=== PATIENT | female | born 1940 | race Caucasian/White ===

== ENCOUNTER → 2018-01-07 14:33 | Outpatient (CLI) | payer MEDICARE, BC, SELFPAY | PROVIDERS: PCP Physician Assistant; Visit Provider Physician Assistant | DX: N39.0 Urinary tract infection, site not specified (principal) | CPT/HCPCS: 87077; 87086; 87186 ==

== ENCOUNTER 2018-02-11 12:03 | Inpatient (IN) | payer MEDICARE, BC, SELFPAY ==
[2018-02-11] VITALS (14 sets, daily range): BP systolic 118–196; BP diastolic 46–99; PULSE 33–80; RESP 12–20; TEMP 36.3–37.2; O2SAT 92–96; BMI 26.2; BMI 24.5
--- NOTE | 2018-02-11 | DI.MRI.S_ITS ---
PROCEDURE: MR STROKE Pre- and post-contrast brain MRI, non-contrast brain MR angiogram, pre- and postcontrast neck MR angiogram INDICATIONS: cva TECHNIQUE: Brain: Noncontrast axial T1 spin echo, axial T2 fast spin echo, sagittal and axial FLAIR, coronal T2 fast spin echo, axial gradient echo, axial diffusion and ADC through the brain. After the administration of contrast, axial 3D VIBE of the cranial vasculature and brain. Brain MRA: Non-contrast 3-D time of flight MR angiogram, with multiple mvbemjf-zqidnbcms-oqhwpyryye (MIP) reformats performed. Neck MRA: Axial and sagittal TruFISP through the neck. Coronal dynamic MR angiogram during administration of contrast in the arterial and venous phases, with 3-dimenstional sqnsmbu-uqlglfqwq-kjshqeteuu (MIP) reformats constructed from subtraction images. COMPARISON: [facility], CT, CT HEAD/BRAIN WO CON, 02/11/2018, 12:03. [facility], CT, CT ANGIO HEAD AND NECK, 02/11/2018, 13:16. FINDINGS: Image quality: Excellent. BRAIN: CSF spaces: Ventricles are normal in size and shape. Basal cisterns are patent. No extra-axial fluid collections. Brain: There is moderate size area of restricted diffusion involving left parietal lobe deep periventricular white matter extending to involve left basal ganglia. This is consistent with an acute infarction in this region. No intracranial bleeds or mass effects. Waite-white matter interface is normal. Age-appropriate atrophy and moderate periventricular white matter chronic ischemic microangiopathic changes are seen. Normal intravascular flow voids are present. No abnormal intracranial enhancement. Skull and face: Calvarial marrow signal is normal. Orbits appear normal. Sinuses: Sinuses and mastoids are clear. BRAIN MR ANGIOGRAM: Anterior circulation: Intracranial internal carotid arteries are normal in size and enhancement. The flow within the paired anterior cerebral arteries is normal and symmetric. The flow within the middle cerebral arteries is normal and symmetric. The anterior communicating artery is seen. No stenoses, occlusions, or aneurysms. Posterior circulation: The visualized portions of the vertebral arteries demonstrate normal caliber, and join to form a normal appearing basilar artery. The flow within the posterior cerebral arteries is normal and symmetric. No stenoses, occlusions, or aneurysms. NECK MR ANGIOGRAM: Carotids: Great vessels demonstrate a conventional anatomy as they arise from the aortic arch. The origins of the common carotid arteries appear patent. The calibers and courses of both common carotid arteries are normal. The bifurcation regions appear normal bilaterally. The internal carotid arteries demonstrate normal course and caliber. Posterior circulation: The origins of the vertebral arteries appear patent. More superior portions of both vertebral arteries demonstrate normal course and caliber, and join to form a normal appearing basilar artery. Miscellaneous: Subclavian arteries appear patent. Pre-contrast images through the neck show no soft tissue abnormalities. IMPRESSION: BRAIN MRI: 1. 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 No acute intracranial bleed, midline shift or mass effect. 2. Diffuse atrophy and moderate periventricular white matter chronic ischemic microangiopathic changes. No area of abnormal contrast enhancement. BRAIN MR ANGIOGRAM: No hemodynamically significant stenosis or aneurysm is seen in the intracranial circulation. NECK MR ANGIOGRAM: No hemodynamically significant stenosis are noted in bilateral carotid arteries. Dictated by: Marc Guzman M.D. on 02/12/2018 at 11:40 Approved by: Marc Guzman M.D. on 02/12/2018 at 11:49
--- NOTE | 2018-02-11 12:09 | DI.CT.S_ITS ---
PROCEDURE: CT HEAD/BRAIN WO CON INDICATIONS: stroke symptoms TECHNIQUE: Noncontrast 4.5 mm thick angled axial sections acquired from the foramen magnum to the vertex, with coronal and sagittal reformats. For radiation dose reduction, the following was used: automated exposure control, adjustment of mA and/or kV according to patient size. COMPARISON: None. FINDINGS: Image quality: Excellent. CSF spaces: Basal cisterns are patent. No extra-axial fluid collections. The ventricles are symmetric in size and shape. Brain: No intracranial bleeds or masses. There is cerebral volume loss for age, with resultant ventricular and sulcal prominence. There are periventricular and deep white matter chronic small vessel ischemic changes. There is intracranial internal carotid artery atherosclerosis. Skull and face: Calvarium and visualized facial bones appear intact, without suspicious lesions. Sinuses: Visualized sinuses and mastoids are clear. IMPRESSION: No acute intracranial process. Findings personally telephoned to Dr. Ruiz in the emergency department 1226 hrs. 02/11/18 Dictated by: Samy Tavarez M.D. on 02/11/2018 at 12:24 Approved by: Samy Tavarez M.D. on 02/11/2018 at 12:27
--- NOTE | 2018-02-11 12:15 | DI.RAD.S_ITS ---
PROCEDURE: XR CHEST 1V INDICATIONS: cva symptoms TECHNIQUE: One view of the chest was acquired. COMPARISON: None. FINDINGS: Surgical changes and devices: None. Lungs and pleura: No pleural effusions or pneumothorax. Lungs are clear. Mediastinum: Mediastinal contours appear normal. Heart size is normal. Bones and chest wall: No suspicious bony lesions. Overlying soft tissues appear unremarkable. IMPRESSION: No acute disease. Dictated by: Samy Tavarez M.D. on 02/11/2018 at 12:49 Approved by: Samy Tavarez M.D. on 02/11/2018 at 12:50
--- NOTE | 2018-02-11 12:27 | DI.CT.S_ITS ---
PROCEDURE: CT ANGIO HEAD AND NECK INDICATIONS: cva, facial droop, slurred speech TECHNIQUE: Pre-contrast 4.5 mm thick sections acquired from the foramen magnum to the vertex. After the administration of intravenous contrast, 1 mm thick sections acquired from the aortic arch through the [place]. Post-contrast 4.5 mm thick sections then re-acquired from the foramen magnum to the vertex. 3-dimensional wxhflbo-akpbijufm-deoefkrsmf (MIP) and/or volume rendering reformats were acquired of the central intracranial vasculature and neck separately. COMPARISON: [facility], CT, CT HEAD/BRAIN WO CON, 02/11/2018, 12:03. FINDINGS: Image quality: Excellent. BRAIN: CSF spaces: Ventricles are normal in size and shape. Basal cisterns are patent. No extra-axial fluid collections. Brain: No midline shift. No intracranial bleeds or masses. Waite-white matter interface appears intact. Skull and face: Calvarium and facial bones appear intact, without suspicious lesions. Orbits appear normal. Sinuses: Sinuses and mastoids are clear. HEAD CT ANGIOGRAPHY: Anterior circulation: Intracranial internal carotid arteries are normal in size and flow. The flow within the paired anterior cerebral arteries is normal and symmetric. The flow within the middle cerebral arteries is normal and symmetric. The anterior communicating artery is seen. No aneurysms are seen. Posterior circulation: Dominant left vertebral artery. Normal appearing basilar artery. Incidental origin of the right [employer]. Flow within the posterior cerebral arteries is normal and symmetric. No aneurysms are seen. NECK CT ANGIOGRAPHY: Carotid system: The great vessels demonstrate a conventional anatomy as they arise from the aortic arch. The origins of the common carotid arteries appear patent. The common carotid arteries demonstrate normal caliber and courses. There are bilateral carotid bifurcation calcifications. No high-grade, greater than 50%, stenosis identified. The bifurcation regions are both widely patent. The internal carotid arteries demonstrate normal calibers and courses. Posterior circulation: The origins of the vertebral arteries both appear widely patent. Dominant left vertebral artery. Normal appearing basilar artery. Soft tissues: Visualized neck soft tissues demonstrate no suspicious abnormalities. Incidentally noted coronary artery concentrations also seen. Bones: No suspicious bony lesions. Visualized cervical spine appears normally aligned. IMPRESSION: Negative head CTA. 50% focal stenosis involving the origin of the left ICA. Further assessment with dedicated carotid ultrasound could be performed as clinically warranted. No hemodynamically significant right ICA stenosis. Dominant left vertebral artery. Any quantitative measurements of stenosis were performed using NASCET criteria. Dictated by: Samy Tavarez M.D. on 02/11/2018 at 14:03 Approved by: Samy Tavarez M.D. on 02/11/2018 at 14:10
--- NOTE | 2018-02-11 12:32 | PC.NURSE ---
pt cory, [facility], mad dr mccain at bs.
--- NOTE | 2018-02-11 12:32 | ED.NEUROSD ---
HPI - Neuro Symptoms/Deficit General Chief Complaint: Neuro Symptoms/Deficit Stated Complaint: possible stroke Time Seen by Provider: 02/11/18 12:14 Source: patient Mode of arrival: wheelchair Limitations: no limitations History of Present Illness HPI Narrative: This is a 77-year-old female comes to the emergency department with complaint of slurred speech, difficulty getting her words, facial droop as well as being off balance and having some numbness in her extremities. Patient states she woke up like this yesterday on the . Um she a [employer]. By today and they noticed her symptoms and insisted that she come to the ER. Patient states she has never had a prior stroke or TIA. She denies taking medications for blood pressure, she used to take medication for cholesterol but states she does not do well with the statins. No diabetes. Denies any thyroid, no chronic on any disease. She denies any cardiac history. She states she takes medication for her bladder oxybutynin, she takes a baby aspirin daily. She states she has had a hysterectomy. Vanna Ceballos is her PCP. On Anticoagulants: Yes (aspirin 81mg daily) Related Data Home Medications Medication Instructions Recorded Confirmed ASPIRIN (#ASPIRIN E.C.) 81 mg PO QDAY #0 08/06/11 02/11/18 sertraline 50 mg PO QDAY #0 08/06/11 02/11/18 zolpidem 5 mg PO HS #0 08/06/11 02/11/18 estradiol 0.5 mg PO 2XW #0 10/30/12 02/11/18 oxybutynin chloride 5 mg PO DAILY 02/11/18 02/11/18 Allergies Allergy/AdvReac Type Severity Reaction Status Date / Time No Known Drug Allergies Allergy Verified 02/11/18 14:57 Review of Systems Review of Systems All systems reviewed & are unremarkable except as noted in HPI and below Constitutional Denies frequent falls and Reports headache(s) ENT Ears, Nose, Mouth, and Throat: Reports headache(s), Reports disequilibrium and Reports other (facial droop, dysarthria) Cardiovascular Denies chest pain, Denies irregular heart rhythm, Denies lightheadedness, Denies palpitations, Denies dyspnea, Denies dyspnea on exertion and Denies orthopnea Respiratory Denies cough, Denies dyspnea, Denies dyspnea on exertion and Denies wheezing Gastrointestinal Gastrointestinal: Denies abdominal pain, Denies change in bowel habits, Denies diarrhea, Denies nausea and Denies vomiting Genitourinary Denies hematuria, Denies flank pain, Denies urinary incontinence and Denies urinary urgency Musculoskeletal Reports abnormal gait, Denies numbness and Reports tingling (both lower extremities.) Neurologic Reports as per HPI, Reports abnormal speech, Reports abnormal gait, Reports confusion, Denies frequent falls, Reports headache(s), Denies focal weakness, Denies numbness, Denies other visual disturbances, Reports tingling (both lower extremities.) and Reports disequilibrium Psychiatric Reports confusion Endocrine Denies palpitations Allergic/Immunologic Denies wheezing PFSH Medical History Depression (Acute) Peripheral arterial disease (Acute) COPD (chronic obstructive pulmonary disease) (Chronic) History of hypertension (Inactive) Dyslipidemia (Acute) H/O: hysterectomy (Acute) Social History household members: family and none lives independently: Yes Smoking Status: Former smoker alcohol intake: never Exam Narrative Exam Narrative: GEN: well nourished, well appearing female, alert and oriented x 3,, patient appears to be in mild distress. HEENT: Atraumatic, pupils are equal round reactive to light, extraocular movements are intact, nares are clear, Throat is clear without any exudates, erythema, tonsillar enlargement or uvular deviation, irght facial droop of mouth and nasolabial folds, mild dysarthria. HEART: Regular rate and rhythm without murmur, clicks, rubs. Pulses are equal in upper and lower extremities LUNGS:Lungs clear to auscultation, no wheezes, rales, crackles, chest moves symmetrically ABD:bowel sounds normal, soft, non-tender, no guarding, rebound, rigidity, no masses noted, no hepatosplenomegaly MSCL: Non-tender, no muscle atrophy, muscles strength 5/5 upper and lower extremities, full range of motion NEURO:CN 2-12 intact, sensation normal. finger nose finger test normal, heel mendoza test normal, mild aphasia Initial Vital Signs Initial Vital Signs: Vital Signs Pulse Rate 68 02/11/18 12:03 Respiratory Rate 19 02/11/18 12:03 Blood Pressure 177/86 H 02/11/18 12:03 Pulse Oximetry 94 02/11/18 12:03 Scores NIH Stroke Scale Level of Conciousness: Alert, keenly responsive Ask month/age: Answers both questions correctly. Best gaze horizontal: Normal Visual chambers: No visual loss Facial palsy: Minor paralysis, flattened nasolabial fold, asymmetry on smiling Left arm drift: No drift for full 10 sec Right arm drift: No drift for full 10 sec Left leg drift: No drift for full 10 sec Right leg drift: No drift for full 10 sec Limb ataxia: Absent Sensory on face/arms/legs: Normal, no sensory loss Best language: Mild to moderate, slurs some words Dysarthria: Mild to mod,some slurring Extinction or inattention: No abnormality Course Orders Ordered: ED Orders 02/11/18 12:03 Consult to Physical Therapy Evaluate & Treat 02/11/18 12:09 CT head/brain wo con Stat 02/11/18 12:14 EKG-12 Lead Stat 02/11/18 12:15 XR chest 1V Stat 02/11/18 12:27 CT angio head and neck Stat 02/11/18 12:44 Basic Metabolic Panel Stat Complete Blood Count AUTO DIFF Stat Partial Thromboplastin Time Stat Prothrombin Time INR Stat Troponin I Stat 02/11/18 17:09 Consult to Speech Therapy Evaluate & Treat 02/11/18 17:10 Education, smoking cessation ONGOING 02/11/18 17:25 Urinalysis and Microscopic Routine Urine Drug Screen, Rapid Stat Acetaminophen (Tylenol) 650 mg PO Q6HR PRN PRN Reason: As Needed for Fever/Mild Pain Al Hydrox/Mg Hydrox/Simethicone (Maalox Plus) 30 ml PO Q6HR PRN PRN Reason: Dyspepsia Clopidogrel Bisulfate (Plavix) 75 mg PO DAILY [facility] Labetalol HCl (Trandate) 10 mg IV Q4HR PRN PRN Reason: Hypertension Ondansetron HCl (Zofran) 4 mg IV Q8HR PRN PRN Reason: Nausea And Vomiting Oxybutynin Chloride (Ditropan Xl) 5 mg PO DAILY [facility] Sertraline HCl (Zoloft) 50 mg PO BEDTIME MICHAEL Zolpidem Tartrate (Ambien) 5 mg PO BEDTIME MICHAEL Discontinued Medications Aspirin (Aspirin Chew) 324 mg PO NOW ONE Stop: 02/11/18 12:26 Last Admin: 02/11/18 12:33 Dose: 324 mg Aspirin (Aspirin Ec) 81 mg PO DAILY [facility] Hydralazine HCl (Apresoline) 10 mg IV NOW ONE Stop: 02/11/18 13:10 Last Admin: 02/11/18 13:34 Dose: 10 mg Sodium Chloride (Normal Saline 0.9%) 1,000 mls @ 150 mls/hr IV CONT MICHAEL Last Infusion: 02/11/18 14:59 Dose: 150 mls/hr Admin: 02/11/18 12:35 Dose: 150 mls/hr Sertraline HCl (Zoloft) 50 mg PO DAILY [facility] Vital Signs - 8 hr 02/11/18 12:03 02/11/18 12:31 02/11/18 13:01 Temperature Pulse Rate 68 71 33 L Respiratory Rate 19 17 16 Blood Pressure 177/86 H Blood Pressure [Left Arm] 169/72 H 196/69 H Pulse Oximetry 94 92 94 02/11/18 13:35 02/11/18 13:50 02/11/18 14:00 Temperature Pulse Rate 75 80 76 Respiratory Rate 18 12 20 Blood Pressure Blood Pressure [Left Arm] 191/70 H 118/99 H 154/46 H Pulse Oximetry 94 96 96 02/11/18 14:09 02/11/18 14:15 02/11/18 14:30 Temperature Pulse Rate 75 74 75 Respiratory Rate 20 20 20 Blood Pressure Blood Pressure [Left Arm] 170/73 H 127/86 184/56 H Pulse Oximetry 95 96 95 02/11/18 15:00 02/11/18 15:02 02/11/18 17:16 Temperature 97.4 F L Pulse Rate 67 78 Respiratory Rate 16 Blood Pressure 184/56 H 156/77 H Blood Pressure [Left Arm] Pulse Oximetry 95 96 MDM - Neuro Symptoms/Deficit Lab Data Attestation: I reviewed the patient's lab results. Result diagrams: 02/11/18 12:44 02/11/18 12:44 Lab Results 02/11/18 02/11/18 02/11/18 Range/Units 12:44 12:44 12:44 WBC 8.1 (4.5-11.0) X10^3/uL RBC 4.68 (4.0-5.2) X10^6/uL Hgb 14.0 (12.0-16.0) g/dL Hct 42.3 (36-46) % MCV 90.5 (80-100) fL MCH 30.0 (26-34) PG MCHC 33.1 (30-36) % RDW 14.8 (11.6-14.8) % Plt Count 222 (150-400) X10^3/uL Neut % (Auto) 72.1 (50-75) % Lymph % (Auto) 18.5 L (25-40) % [place] % (Auto) 6.3 (3-14) % Eos % (Auto) 1.8 L (2-4) % Baso % (Auto) 1.3 (0-2) % Neut # (Auto) 5800 (2735-5502) /uL PT 11.3 (10.1-12.7) SECONDS INR 1.1 (0.9-1.3) APTT 31 (26.4-36.2) SECONDS Sodium 145 (137-145) mmol/L Potassium 4.0 (3.4-5.1) mmol/L Chloride 107 (98-107) mmol/L Carbon Dioxide 24 (22-32) mmol/L BUN 21 H (7-17) mg/dL Creatinine 0.60 (0.52-1.04) mg/dL Estimated GFR > 60.0 (>60) mL/min BUN/Creatinine Ratio 35.0 H (6-22) Glucose 123 H (80-110) mg/dL Calcium 9.1 (8.4-10.2) mg/dL Troponin I < 0.012 (0.01-0.034) ng/mL Urine Color Urine Appearance Urine pH (4.5-8.0) Ur Specific [place] (1.000-1.035) Urine Protein (Negative) Urine Glucose (UA) (Normal) g/dL Urine Ketones (NEGATIVE) Urine Occult Blood (Negative) Urine Nitrate (Negative) Urine Bilirubin (NEGATIVE) Urine Urobilinogen (0.2) E.U./dL Ur Leukocyte Esterase (NEGATIVE) Urine RBC (0-5/HPF) Urine WBC (0-5/HPF) Urine Bacteria (None) Ur Culture Indicated? Micro UA Comment Urine Opiates Screen (Negative) Ur Oxycodone Screen (Negative) Urine Methadone Screen (Negative) Ur Barbiturates Screen (Negative) U Tricyclic Antidepress (Negative) Ur Phencyclidine Scrn (Negative) Ur Amphetamines Screen (Negative) U Methamphetamines Scrn (Negative) Ur MDMA Scrn (Ecstasy) (Negative) U Benzodiazepines Scrn (Negative) Urine Cocaine Screen (Negative) U Marijuana (THC) Screen (Negative) 02/11/18 02/11/18 Range/Units 17:25 17:25 WBC (4.5-11.0) X10^3/uL RBC (4.0-5.2) X10^6/uL Hgb (12.0-16.0) g/dL Hct (36-46) % MCV (80-100) fL MCH (26-34) PG MCHC (30-36) % RDW (11.6-14.8) % Plt Count (150-400) X10^3/uL Neut % (Auto) (50-75) % Lymph % (Auto) (25-40) % [place] % (Auto) (3-14) % Eos % (Auto) (2-4) % Baso % (Auto) (0-2) % Neut # (Auto) (6160-3831) /uL PT (10.1-12.7) SECONDS INR (0.9-1.3) APTT (26.4-36.2) SECONDS Sodium (137-145) mmol/L Potassium (3.4-5.1) mmol/L Chloride (98-107) mmol/L Carbon Dioxide (22-32) mmol/L BUN (7-17) mg/dL Creatinine (0.52-1.04) mg/dL Estimated GFR (>60) mL/min BUN/Creatinine Ratio (6-22) Glucose (80-110) mg/dL Calcium (8.4-10.2) mg/dL Troponin I (0.01-0.034) ng/mL Urine Color Yellow Urine Appearance Clear Urine pH 7.0 (4.5-8.0) Ur Specific [place] <=1.005 (1.000-1.035) Urine Protein Negative (Negative) Urine Glucose (UA) Negative (Normal) g/dL Urine Ketones Negative (NEGATIVE) Urine Occult Blood Negative (Negative) Urine Nitrate Negative (Negative) Urine Bilirubin Negative (NEGATIVE) Urine Urobilinogen 0.2 (0.2) E.U./dL Ur Leukocyte Esterase Negative (NEGATIVE) Urine RBC None seen (0-5/HPF) Urine WBC None seen (0-5/HPF) Urine Bacteria None seen (None) Ur Culture Indicated? Not Reportable Micro UA Comment Not Reportable Urine Opiates Screen Negative (Negative) Ur Oxycodone Screen Negative (Negative) Urine Methadone Screen Negative (Negative) Ur Barbiturates Screen Negative (Negative) U Tricyclic Antidepress Negative (Negative) Ur Phencyclidine Scrn Negative (Negative) Ur Amphetamines Screen Negative (Negative) U Methamphetamines Scrn Negative (Negative) Ur MDMA Scrn (Ecstasy) Negative (Negative) U Benzodiazepines Scrn Negative (Negative) Urine Cocaine Screen Negative (Negative) U Marijuana (THC) Screen Negative (Negative) Point of Care Testing Glucose POC [address] scan - head: Radiologist's impression: [address] [address] [address] Scan Report Signed Patient: Susi Champion LMR#: [id number] : 9Acct:[id number] Age/Sex: 77 / FDate of Service: 02/11/18 Loc: ED Accession Number: [id number] Procedure: CT head/brain wo con Ordering Provider: Anna Ruiz D.O. PROCEDURE: CT HEAD/BRAIN WO CON INDICATIONS: stroke symptoms TECHNIQUE: Noncontrast 4.5 mm thick angled axial sections acquired from the foramen magnum to the vertex, with coronal and sagittal reformats. For radiation dose reduction, the following was used: automated exposure control, adjustment of mA and/or kV according to patient size. COMPARISON: None. FINDINGS: Image quality: Excellent. CSF spaces: Basal cisterns are patent. No extra-axial fluid collections. The ventricles are symmetric in size and shape. Brain: No intracranial bleeds or masses. There is cerebral volume loss for age, with resultant ventricular and sulcal prominence. There are periventricular and deep white matter chronic small vessel ischemic changes. There is intracranial internal carotid artery atherosclerosis. Skull and face: Calvarium and visualized facial bones appear intact, without suspicious lesions. Sinuses: Visualized sinuses and mastoids are clear. IMPRESSION: No acute intracranial process. Findings personally telephoned to Dr. Ruiz in the emergency department 1226 hrs. 02/11/18 Dictated by: Samy Tavarez M.D. on 02/11/2018 at 12:24 Approved by: Samy Tavarez M.D. on 02/11/2018 at 12:27 Chest x-ray: Radiologist's impression: [address] [address] XRay Report Signed Patient: Susi Champion LMR#: [id number] : 9At:[id number] Age/Sex: 77 / FDate of Service: 02/11/18 Loc: ED Accession Number: [id number] Procedure: XR chest 1V Ordering Provider: Anna Ruiz D.O. PROCEDURE: XR CHEST 1V INDICATIONS: cva symptoms TECHNIQUE: One view of the chest was acquired. COMPARISON: None. FINDINGS: Surgical changes and devices: None. Lungs and pleura: No pleural effusions or pneumothorax. Lungs are clear. Mediastinum: Mediastinal contours appear normal. Heart size is normal. Bones and chest wall: No suspicious bony lesions. Overlying soft tissues appear unremarkable. IMPRESSION: No acute disease. Dictated by: Samy Tavarez M.D. on 02/11/2018 at 12:49 Approved by: Samy Tavarez M.D. on 02/11/2018 at 12:[address] a: Radiologist's impression: [address] [address] [address] Scan Report Signed Patient: Susi Champion LMR#: [id number] : 9Acct:[id number] Age/Sex: 77 / FDate of Service: 02/11/18 Loc: ED Accession Number: [id number] Procedure: CT angio head and neck Ordering Provider: Anna Ruiz D.O. PROCEDURE: CT ANGIO HEAD AND NECK INDICATIONS: cva, facial droop, slurred speech TECHNIQUE: Pre-contrast 4.5 mm thick sections acquired from the foramen magnum to the vertex. After the administration of intravenous contrast, 1 mm thick sections acquired from the aortic arch through the [place]. Post-contrast 4.5 mm thick sections then re-acquired from the foramen magnum to the vertex. 3-dimensional [id number] (MIP) and/or volume rendering reformats were acquired of the central intracranial vasculature and neck separately. COMPARISON: [facility], CT, CT HEAD/BRAIN WO CON, 02/11/2018, 12:03. FINDINGS: Image quality: Excellent. BRAIN: CSF spaces: Ventricles are normal in size and shape. Basal cisterns are patent. No extra-axial fluid collections. Brain: No midline shift. No intracranial bleeds or masses. [place]-white matter interface appears intact. Skull and face: Calvarium and facial bones appear intact, without suspicious lesions. Orbits appear normal. Sinuses: Sinuses and mastoids are clear. HEAD CT ANGIOGRAPHY: Anterior circulation: Intracranial internal carotid arteries are normal in size and flow. The flow within the paired anterior cerebral arteries is normal and symmetric. The flow within the middle cerebral arteries is normal and symmetric. The anterior communicating artery is seen. No aneurysms are seen. Posterior circulation: Dominant left vertebral artery. Normal appearing basilar artery. Incidental origin of the right SP[employer]ERI[employer] TRIMMER. Flow within the posterior cerebral arteries is normal and symmetric. No aneurysms are seen. NECK CT ANGIOGRAPHY: Carotid system: The great vessels demonstrate a conventional anatomy as they arise from the aortic arch. The origins of the common carotid arteries appear patent. The common carotid arteries demonstrate normal caliber and courses. There are bilateral carotid bifurcation calcifications. No high-grade, greater than 50%, stenosis identified. The bifurcation regions are both widely patent. The internal carotid arteries demonstrate normal calibers and courses. Posterior circulation: The origins of the vertebral arteries both appear widely patent. Dominant left vertebral artery. Normal appearing basilar artery. Soft tissues: Visualized neck soft tissues demonstrate no suspicious abnormalities. Incidentally noted coronary artery concentrations also seen. Bones: No suspicious bony lesions. Visualized cervical spine appears normally aligned. IMPRESSION: Negative head CTA. 50% focal stenosis involving the origin of the left ICA. Further assessment with dedicated carotid ultrasound could be performed as clinically warranted. No hemodynamically significant right ICA stenosis. Dominant left vertebral artery. Any quantitative measurements of stenosis were performed using NASCET criteria. Dictated by: Samy Tavarez M.D. on 02/11/2018 at 14:03 Approved by: Samy Tavarez M.D. on 02/11/2018 at 14:10 ECG Data Attestation: I personally reviewed and interpreted this ECG as follows: Interpretation: Sinus rhythm rate of 73, P are of 204, QRS of 109 and QTC of 425. Sinus rhythm left axis deviation. Nonspecific ST changes particularly in aVL and lateral leads. MDM Narrative Medical decision making narrative: patient has had greater than 24 hr of symptoms is not a tPA candidate. Her NIH is 4. She did have elevating pressures in the department and was given hydralazine. She improvement in her facial droop during her stay on recheck but continues to have some dysarthria and aphasia. I spoke with Dr. Ramos who accepts for observation. Afterwards and further discussion with the patient she used to have hypertension her meds were stopped in conjunction with her physician as her pressures had dropped but she was told recently that she needs to restart medications but had issue lead told me she does not have any hypertension history. Discharge Plan Departure Patient Disposition: Admitted as Observation Clinical Impression: Acute CVA (cerebrovascular accident) Discharge Date/Time: 02/11/18 15:08 Interventions: ED Discharge Assessment Last Done: 02/11/18 14:44 Admit Date/Time: 02/11/18 14:34 Admit Provider: Brayden Ramos
[2018-02-11] MEDS: ASPIRIN 81 MG TAB 324 MG PO (12:33)
[2018-02-11] MEDS: SODIUM CHLORIDE 0.9% 1,000 ML 150 ML IV (12:35)
--- NOTE | 2018-02-11 12:35 | PC.NURSE ---
pt states, feeling fine tuesday, feeling slow, and clumsy, denies falling or injuries.
--- NOTE | 2018-02-11 12:39 | ED_ITS ---
HPI - Neuro Symptoms/Deficit General Chief Complaint: Neuro Symptoms/Deficit Stated Complaint: possible stroke Time Seen by Provider: 02/11/18 12:14 Source: patient Mode of arrival: wheelchair Limitations: no limitations History of Present Illness HPI Narrative: This is a 77-year-old female comes to the emergency department with complaint of slurred speech, difficulty getting her words, facial droop as well as being off balance and having some numbness in her extremities. Patient states she woke up like this yesterday on the . Um she a [employer]. By today and they noticed her symptoms and insisted that she come to the ER. Patient states she has never had a prior stroke or TIA. She denies taking medications for blood pressure, she used to take medication for cholesterol but states she does not do well with the statins. No diabetes. Denies any thyroid , no chronic on any disease. She denies any cardiac history. She states she takes medication for her bladder oxybutynin, she takes a baby aspirin daily. She states she has had a hysterectomy. Vanna Ceballos is her PCP. On Anticoagulants: Yes (aspirin 81mg daily) Related Data Home Medications Medication Instructions Recorded Confirmed ASPIRIN (#ASPIRIN E.C.) 81 mg PO QDAY #0 08/06/11 02/11/18 sertraline 50 mg PO QDAY #0 08/06/11 02/11/18 zolpidem 5 mg PO HS #0 08/06/11 02/11/18 estradiol 0.5 mg PO 2XW #0 10/30/12 02/11/18 oxybutynin chloride 5 mg PO DAILY 02/11/18 02/11/18 Allergies Allergy/AdvReac Type Severity Reaction Status Date / Time No Known Drug Allergies Allergy Verified 02/11/18 14:57 Review of Systems Review of Systems All systems reviewed & are unremarkable except as noted in HPI and below Constitutional Denies frequent falls and Reports headache(s) ENT Ears, Nose, Mouth, and Throat: Reports headache(s), Reports disequilibrium and Reports other (facial droop, dysarthria) Cardiovascular Denies chest pain, Denies irregular heart rhythm, Denies lightheadedness, Denies palpitations, Denies dyspnea, Denies dyspnea on exertion and Denies orthopnea Respiratory Denies cough, Denies dyspnea, Denies dyspnea on exertion and Denies wheezing Gastrointestinal Gastrointestinal: Denies abdominal pain, Denies change in bowel habits, Denies diarrhea, Denies nausea and Denies vomiting Genitourinary Denies hematuria, Denies flank pain, Denies urinary incontinence and Denies urinary urgency Musculoskeletal Reports abnormal gait, Denies numbness and Reports tingling (both lower extremities.) Neurologic Reports as per HPI, Reports abnormal speech, Reports abnormal gait, Reports confusion, Denies frequent falls, Reports headache(s), Denies focal weakness, Denies numbness, Denies other visual disturbances, Reports tingling (both lower extremities.) and Reports disequilibrium Psychiatric Reports confusion Endocrine Denies palpitations Allergic/Immunologic Denies wheezing PFSH Medical History Depression (Acute) Peripheral arterial disease (Acute) COPD (chronic obstructive pulmonary disease) (Chronic) History of hypertension (Inactive) Dyslipidemia (Acute) H/O: hysterectomy (Acute) Social History household members: family and none lives independently: Yes Smoking Status: Former smoker alcohol intake: never Exam Narrative Exam Narrative: GEN: well nourished, well appearing female, alert and oriented x 3,, patient appears to be in mild distress. HEENT: Atraumatic, pupils are equal round reactive to light, extraocular movements are intact, nares are clear, Throat is clear without any exudates, erythema, tonsillar enlargement or uvular deviation, irght facial droop of mouth and nasolabial folds, mild dysarthria. HEART: Regular rate and rhythm without murmur, clicks, rubs. Pulses are equal in upper and lower extremities LUNGS:Lungs clear to auscultation, no wheezes, rales, crackles, chest moves symmetrically ABD:bowel sounds normal, soft, non-tender, no guarding, rebound, rigidity, no masses noted, no hepatosplenomegaly MSCL: Non-tender, no muscle atrophy, muscles strength 5/5 upper and lower extremities, full range of motion NEURO:CN 2-12 intact, sensation normal. finger nose finger test normal, heel mendoza test normal, mild aphasia Initial Vital Signs Initial Vital Signs: Vital Signs Pulse Rate 68 02/11/18 12:03 Respiratory Rate 19 02/11/18 12:03 Blood Pressure 177/86 H 02/11/18 12:03 Pulse Oximetry 94 02/11/18 12:03 Scores NIH Stroke Scale Level of Conciousness: Alert, keenly responsive Ask month/age: Answers both questions correctly. Best gaze horizontal: Normal Visual chambers: No visual loss Facial palsy: Minor paralysis, flattened nasolabial fold, asymmetry on smiling Left arm drift: No drift for full 10 sec Right arm drift: No drift for full 10 sec Left leg drift: No drift for full 10 sec Right leg drift: No drift for full 10 sec Limb ataxia: Absent Sensory on face/arms/legs: Normal, no sensory loss Best language: Mild to moderate, slurs some words Dysarthria: Mild to mod,some slurring Extinction or inattention: No abnormality Course Orders Ordered: ED Orders 02/11/18 12:03 Consult to Physical Therapy Evaluate & Treat 02/11/18 12:09 CT head/brain wo con Stat 02/11/18 12:14 EKG-12 Lead Stat 02/11/18 12:15 XR chest 1V Stat 02/11/18 12:27 CT angio head and neck Stat 02/11/18 12:44 Basic Metabolic Panel Stat Complete Blood Count AUTO DIFF Stat Partial Thromboplastin Time Stat Prothrombin Time INR Stat Troponin I Stat 02/11/18 17:09 Consult to Speech Therapy Evaluate & Treat 02/11/18 17:10 Education, smoking cessation ONGOING 02/11/18 17:25 Urinalysis and Microscopic Routine Urine Drug Screen, Rapid Stat Acetaminophen (Tylenol) 650 mg PO Q6HR PRN PRN Reason: As Needed for Fever/Mild Pain Al Hydrox/Mg Hydrox/Simethicone (Maalox Plus) 30 ml PO Q6HR PRN PRN Reason: Dyspepsia Clopidogrel Bisulfate (Plavix) 75 mg PO DAILY [facility] Labetalol HCl (Trandate) 10 mg IV Q4HR PRN PRN Reason: Hypertension Ondansetron HCl (Zofran) 4 mg IV Q8HR PRN PRN Reason: Nausea And Vomiting Oxybutynin Chloride (Ditropan Xl) 5 mg PO DAILY [facility] Sertraline HCl (Zoloft) 50 mg PO BEDTIME MICHAEL Zolpidem Tartrate (Ambien) 5 mg PO BEDTIME MICHAEL Discontinued Medications Aspirin (Aspirin Chew) 324 mg PO NOW ONE Stop: 02/11/18 12:26 Last Admin: 02/11/18 12:33 Dose: 324 mg Aspirin (Aspirin Ec) 81 mg PO DAILY [facility] Hydralazine HCl (Apresoline) 10 mg IV NOW ONE Stop: 02/11/18 13:10 Last Admin: 02/11/18 13:34 Dose: 10 mg Sodium Chloride (Normal Saline 0.9%) 1,000 mls @ 150 mls/hr IV CONT MICHAEL Last Infusion: 02/11/18 14:59 Dose: 150 mls/hr Admin: 02/11/18 12:35 Dose: 150 mls/hr Sertraline HCl (Zoloft) 50 mg PO DAILY [facility] Vital Signs - 8 hr 02/11/18 12:03 02/11/18 12:31 02/11/18 13:01 Temperature Pulse Rate 68 71 33 L Respiratory Rate 19 17 16 Blood Pressure 177/86 H Blood Pressure [Left Arm] 169/72 H 196/69 H Pulse Oximetry 94 92 94 02/11/18 13:35 02/11/18 13:50 02/11/18 14:00 Temperature Pulse Rate 75 80 76 Respiratory Rate 18 12 20 Blood Pressure Blood Pressure [Left Arm] 191/70 H 118/99 H 154/46 H Pulse Oximetry 94 96 96 02/11/18 14:09 02/11/18 14:15 02/11/18 14:30 Temperature Pulse Rate 75 74 75 Respiratory Rate 20 20 20 Blood Pressure Blood Pressure [Left Arm] 170/73 H 127/86 184/56 H Pulse Oximetry 95 96 95 02/11/18 15:00 02/11/18 15:02 02/11/18 17:16 Temperature 97.4 F L Pulse Rate 67 78 Respiratory Rate 16 Blood Pressure 184/56 H 156/77 H Blood Pressure [Left Arm] Pulse Oximetry 95 96 MDM - Neuro Symptoms/Deficit Lab Data Attestation: I reviewed the patient's lab results. Result diagrams: 02/11/18 12:44 02/11/18 12:44 Lab Results 02/11/18 02/11/18 02/11/18 Range/Units 12:44 12:44 12:44 WBC 8.1 (4.5-11.0) X10^3/uL RBC 4.68 (4.0-5.2) X10^6/uL Hgb 14.0 (12.0-16.0) g/dL Hct 42.3 (36-46) % MCV 90.5 (80-100) fL MCH 30.0 (26-34) PG MCHC 33.1 (30-36) % RDW 14.8 (11.6-14.8) % Plt Count 222 (150-400) X10^3/uL Neut % (Auto) 72.1 (50-75) % Lymph % (Auto) 18.5 L (25-40) % [place] % (Auto) 6.3 (3-14) % Eos % (Auto) 1.8 L (2-4) % Baso % (Auto) 1.3 (0-2) % Neut # (Auto) 5800 (5008-5155) /uL PT 11.3 (10.1-12.7) SECONDS INR 1.1 (0.9-1.3) APTT 31 (26.4-36.2) SECONDS Sodium 145 (137-145) mmol/L Potassium 4.0 (3.4-5.1) mmol/L Chloride 107 (98-107) mmol/L Carbon Dioxide 24 (22-32) mmol/L BUN 21 H (7-17) mg/dL Creatinine 0.60 (0.52-1.04) mg/dL Estimated GFR > 60.0 (>60) mL/min BUN/Creatinine Ratio 35.0 H (6-22) Glucose 123 H (80-110) mg/dL Calcium 9.1 (8.4-10.2) mg/dL Troponin I < 0.012 (0.01-0.034) ng/mL Urine Color Urine Appearance Urine pH (4.5-8.0) Ur Specific [place] (1.000-1.035) Urine Protein (Negative) Urine Glucose (UA) (Normal) g/dL Urine Ketones (NEGATIVE) Urine Occult Blood (Negative) Urine Nitrate (Negative) Urine Bilirubin (NEGATIVE) Urine Urobilinogen (0.2) E.U./dL Ur Leukocyte Esterase (NEGATIVE) Urine RBC (0-5/HPF) Urine WBC (0-5/HPF) Urine Bacteria (None) Ur Culture Indicated? Micro UA Comment Urine Opiates Screen (Negative) Ur Oxycodone Screen (Negative) Urine Methadone Screen (Negative) Ur Barbiturates Screen (Negative) U Tricyclic Antidepress (Negative) Ur Phencyclidine Scrn (Negative) Ur Amphetamines Screen (Negative) U Methamphetamines Scrn (Negative) Ur MDMA Scrn (Ecstasy) (Negative) U Benzodiazepines Scrn (Negative) Urine Cocaine Screen (Negative) U Marijuana (THC) Screen (Negative) 02/11/18 02/11/18 Range/Units 17:25 17:25 WBC (4.5-11.0) X10^3/uL RBC (4.0-5.2) X10^6/uL Hgb (12.0-16.0) g/dL Hct (36-46) % MCV (80-100) fL MCH (26-34) PG MCHC (30-36) % RDW (11.6-14.8) % Plt Count (150-400) X10^3/uL Neut % (Auto) (50-75) % Lymph % (Auto) (25-40) % [place] % (Auto) (3-14) % Eos % (Auto) (2-4) % Baso % (Auto) (0-2) % Neut # (Auto) (4654-0039) /uL PT (10.1-12.7) SECONDS INR (0.9-1.3) APTT (26.4-36.2) SECONDS Sodium (137-145) mmol/L Potassium (3.4-5.1) mmol/L Chloride (98-107) mmol/L Carbon Dioxide (22-32) mmol/L BUN (7-17) mg/dL Creatinine (0.52-1.04) mg/dL Estimated GFR (>60) mL/min BUN/Creatinine Ratio (6-22) Glucose (80-110) mg/dL Calcium (8.4-10.2) mg/dL Troponin I (0.01-0.034) ng/mL Urine Color Yellow Urine Appearance Clear Urine pH 7.0 (4.5-8.0) Ur Specific [place] <=1.005 (1.000-1.035) Urine Protein Negative (Negative) Urine Glucose (UA) Negative (Normal) g/dL Urine Ketones Negative (NEGATIVE) Urine Occult Blood Negative (Negative) Urine Nitrate Negative (Negative) Urine Bilirubin Negative (NEGATIVE) Urine Urobilinogen 0.2 (0.2) E.U./dL Ur Leukocyte Esterase Negative (NEGATIVE) Urine RBC None seen (0-5/HPF) Urine WBC None seen (0-5/HPF) Urine Bacteria None seen (None) Ur Culture Indicated? Not Reportable Micro UA Comment Not Reportable Urine Opiates Screen Negative (Negative) Ur Oxycodone Screen Negative (Negative) Urine Methadone Screen Negative (Negative) Ur Barbiturates Screen Negative (Negative) U Tricyclic Antidepress Negative (Negative) Ur Phencyclidine Scrn Negative (Negative) Ur Amphetamines Screen Negative (Negative) U Methamphetamines Scrn Negative (Negative) Ur MDMA Scrn (Ecstasy) Negative (Negative) U Benzodiazepines Scrn Negative (Negative) Urine Cocaine Screen Negative (Negative) U Marijuana (THC) Screen Negative (Negative) Point of Care Testing Glucose POC [address] scan - head: Radiologist's impression: [address] [address] [address] Scan Report Signed Patient: Susi Champion LMR#: [id number] : 9Acct:[id number] Age/Sex: 77 / FDate of Service: 02/11/18 Loc: ED Accession Number: [id number] Procedure: CT head/brain wo con Ordering Provider: Anna Ruiz D.O. PROCEDURE: CT HEAD/BRAIN WO CON INDICATIONS: stroke symptoms TECHNIQUE: Noncontrast 4.5 mm thick angled axial sections acquired from the foramen magnum to the vertex, with coronal and sagittal reformats. For radiation dose reduction, the following was used: automated exposure control, adjustment of mA and/or kV according to patient size. COMPARISON: None. FINDINGS: Image quality: Excellent. CSF spaces: Basal cisterns are patent. No extra-axial fluid collections. The ventricles are symmetric in size and shape. Brain: No intracranial bleeds or masses. There is cerebral volume loss for age , with resultant ventricular and sulcal prominence. There are periventricular and deep white matter chronic small vessel ischemic changes. There is intracranial internal carotid artery atherosclerosis. Skull and face: Calvarium and visualized facial bones appear intact, without suspicious lesions. Sinuses: Visualized sinuses and mastoids are clear. IMPRESSION: No acute intracranial process. Findings personally telephoned to Dr. Ruiz in the emergency department 1226 hrs. 02/11/18 Dictated by: Samy Tavarez M.D. on 02/11/2018 at 12:24 Approved by: Samy Tavarez M.D. on 02/11/2018 at 12:27 Chest x-ray: Radiologist's impression: [address] [address] XRay Report Signed Patient: Ssui Champion LMR#: [id number] : 9At:[id number] Age/Sex: 77 / FDate of Service: 02/11/18 Loc: ED Accession Number: [id number] Procedure: XR chest 1V Ordering Provider: Anna Ruiz D.O. PROCEDURE: XR CHEST 1V INDICATIONS: cva symptoms TECHNIQUE: One view of the chest was acquired. COMPARISON: None. FINDINGS: Surgical changes and devices: None. Lungs and pleura: No pleural effusions or pneumothorax. Lungs are clear. Mediastinum: Mediastinal contours appear normal. Heart size is normal. Bones and chest wall: No suspicious bony lesions. Overlying soft tissues appear unremarkable. IMPRESSION: No acute disease. Dictated by: Samy Tavarez M.D. on 02/11/2018 at 12:49 Approved by: Samy Tavarez M.D. on 02/11/2018 at 12:[address] a: Radiologist's impression: [address] [address] [address] Scan Report Signed Patient: Susi Champion LMR#: [id number] : 9Acct:[id number] Age/Sex: 77 / FDate of Service: 02/11/18 Loc: ED Accession Number: [id number] Procedure: CT angio head and neck Ordering Provider: Anna Ruiz D.O. PROCEDURE: CT ANGIO HEAD AND NECK INDICATIONS: cva, facial droop, slurred speech TECHNIQUE: Pre-contrast 4.5 mm thick sections acquired from the foramen magnum to the vertex. After the administration of intravenous contrast, 1 mm thick sections acquired from the aortic arch through the [place] of [place]. Post-contrast 4.5 mm thick sections then re- acquired from the foramen magnum to the vertex. 3-dimensional maximum-intensity- projection (MIP) and/or volume rendering reformats were acquired of the central intracranial vasculature and neck separately. COMPARISON: [facility], CT, CT HEAD/BRAIN WO CON, 02/11/2018, 12:03. FINDINGS: Image quality: Excellent. BRAIN: CSF spaces: Ventricles are normal in size and shape. Basal cisterns are patent. No extra-axial fluid collections. Brain: No midline shift. No intracranial bleeds or masses. Waite-white matter interface appears intact. Skull and face: Calvarium and facial bones appear intact, without suspicious lesions. Orbits appear normal. Sinuses: Sinuses and mastoids are clear. HEAD CT ANGIOGRAPHY: Anterior circulation: Intracranial internal carotid arteries are normal in size and flow. The flow within the paired anterior cerebral arteries is normal and symmetric. The flow within the middle cerebral arteries is normal and symmetric. The anterior communicating artery is seen. No aneurysms are seen. Posterior circulation: Dominant left vertebral artery. Normal appearing basilar artery. Incidental origin of the right [employer]. Flow within the posterior cerebral arteries is normal and symmetric. No aneurysms are seen. NECK CT ANGIOGRAPHY: Carotid system: The great vessels demonstrate a conventional anatomy as they arise from the aortic arch. The origins of the common carotid arteries appear patent. The common carotid arteries demonstrate normal caliber and courses. There are bilateral carotid bifurcation calcifications. No high-grade, greater than 50%, stenosis identified. The bifurcation regions are both widely patent. The internal carotid arteries demonstrate normal calibers and courses. Posterior circulation: The origins of the vertebral arteries both appear widely patent. Dominant left vertebral artery. Normal appearing basilar artery. Soft tissues: Visualized neck soft tissues demonstrate no suspicious abnormalities. Incidentally noted coronary artery concentrations also seen. Bones: No suspicious bony lesions. Visualized cervical spine appears normally aligned. IMPRESSION: Negative head CTA. 50% focal stenosis involving the origin of the left ICA. Further assessment with dedicated carotid ultrasound could be performed as clinically warranted. No hemodynamically significant right ICA stenosis. Dominant left vertebral artery. Any quantitative measurements of stenosis were performed using NASCET criteria. Dictated by: Samy Tavarez M.D. on 02/11/2018 at 14:03 Approved by: Samy Tavarez M.D. on 02/11/2018 at 14:10 ECG Data Attestation: I personally reviewed and interpreted this ECG as follows: Interpretation: Sinus rhythm rate of 73, P are of 204, QRS of 109 and QTC of 425. Sinus rhythm left axis deviation. Nonspecific ST changes particularly in aVL and lateral leads. MDM Narrative Medical decision making narrative: patient has had greater than 24 hr of symptoms is not a tPA candidate. Her NIH is 4. She did have elevating pressures in the department and was given hydralazine. She improvement in her facial droop during her stay on recheck but continues to have some dysarthria and aphasia. I spoke with Dr. Ramos who accepts for observation. Afterwards and further discussion with the patient she used to have hypertension her meds were stopped in conjunction with her physician as her pressures had dropped but she was told recently that she needs to restart medications but had issue lead told me she does not have any hypertension history. Discharge Plan Departure Patient Disposition: Admitted as Observation Clinical Impression: Acute CVA (cerebrovascular accident) Discharge Date/Time: 02/11/18 15:08 Interventions: ED Discharge Assessment Last Done: 02/11/18 14:44 Admit Date/Time: 02/11/18 14:34 Admit Provider: Brayden Ramos
[2018-02-11 12:53] LABS: Add Manual Diff / Slide Review NO; Basophils Percent Auto 1.3 % (0-2); Eosinophils Percent Auto 1.8 % (2-4); Hematocrit 42.3 % (36-46); Lymphocytes Percent Auto 18.5 % (25-40); Mean Corpuscular HGB Conc 33.1 % (30-36); Mean Corpuscular Volume 90.5 fL (80-100); Monocytes Percent Auto 6.3 % (3-14); Neutrophils Absolute Auto 5800 /uL (3000-5900); Neutrophils Percent Auto 72.1 % (50-75); Platelet Count 222 X10^3/uL (150-400); Red Blood Cell Count 4.68 X10^6/uL (4.0-5.2); Red Cell Distribution Width 14.8 % (11.6-14.8); White Blood Cell Count 8.1 X10^3/uL (4.5-11.0)
--- NOTE | 2018-02-11 13:04 | PC.NURSE ---
pt states, stopped taking bp medications 5 years ago.
[2018-02-11 13:05] LABS: Blood Urea Nitrogen 21 mg/dL (7-17); Calcium 9.1 mg/dL (8.4-10.2); Carbon Dioxide 24 mmol/L (22-32); Chloride 107 mmol/L (98-107); Estimated Glomerular Filt Rate > 60.0 mL/min (>60); Glucose 123 mg/dL (80-110); HEMOLYSIS 26 (0-50); Sodium 145 mmol/L (137-145)
[2018-02-11 13:10] LABS: INR 1.1 (0.9-1.3); PTT Partial Thromboplastin Tim 31 SECONDS (26.4-36.2); Prothrombin Time 11.3 SECONDS (10.1-12.7)
[2018-02-11 13:17] LABS: Troponin I < 0.012 ng/mL (0.01-0.034)
[2018-02-11] MEDS: HYDRALAZINE 20 MG/ML VIAL 10 MG IV (13:34)
--- NOTE | 2018-02-11 14:48 | PC.NURSE ---
pt condition improved, speech is improved, pt requesting to have coffee, approved by dr mccain, also made aware of pts elevating bp. no new order at this time
--- NOTE | 2018-02-11 16:02 | PC.NURSE ---
Pt arrived to [facility] 214 from ER at 1500. Alert, oriented. States that over the past couple days she has become more slow. NIH = 2 IV NS @ 150cc/hr infusing into the LFA, HL in the RAC both intact/patent. Pt and family oroineted to room and call system. Assisted pt to BR w/ 1PA & FWW w/o incidence. Call light w/in reach.
[2018-02-11 17:31] LABS: Bacteria Urine None Seen; RBC Urine None Seen (0-5/HPF); WBC Urine None Seen (0-5/HPF)
--- NOTE | 2018-02-11 17:31 | P.HP_ITS ---
History of Present Illness Date Patient Seen: 02/11/18 Time Patient Seen: 17:24 Chief complaint: possible stroke Narrative: 77-year-old female presents with onset of left facial droop and dysarthria. She has been feeling for most of the day kind of funny like she is in a fog and then she had the symptoms. Came into the ER to be evaluated. No prior history of stroke or heart disease she has had a history of hypertension but has been off medications for 5 years she says. She does have hyperlipidemia but has not been able to take a statin Patient History Medical History Depression (Acute) Peripheral arterial disease (Acute) COPD (chronic obstructive pulmonary disease) (Chronic) History of hypertension (Inactive) Dyslipidemia (Acute) H/O: hysterectomy (Acute) Family & Social History Social History: household members family,none Prior Living Arrangements House lives independently Yes Safety & Behavioral: Feels Safe in Current Yes Environment Been Physically Hurt or No Threatened By a Person Suicidal Ideation Description None Suicide Plan Description No Plan Tobacco & Substance use: Smoking Status Former smoker alcohol intake never Substance Use Type does not use Meds Home Medications Medication Instructions Recorded Confirmed Type ASPIRIN (#ASPIRIN E.C.) 81 mg PO QDAY #0 08/06/11 02/11/18 History sertraline 50 mg PO QDAY #0 08/06/11 02/11/18 History zolpidem 5 mg PO HS #0 08/06/11 02/11/18 History estradiol 0.5 mg PO 2XW #0 10/30/12 02/11/18 History oxybutynin chloride 5 mg PO DAILY 02/11/18 02/11/18 History Allergies Allergy/AdvReac Type Severity Reaction Status Date / Time No Known Drug Allergies Allergy Verified 02/11/18 14:57 Review of Systems Constitutional Constitutional: Reports system reviewed and no additional complaints, except as documented Eyes Eyes: Reports system reviewed; no additional complaints, except as documented ENT Ears, Nose, Mouth, and Throat: Yes system reviewed; no additional complaints, except as documented Cardiovascular Cardiovascular: Reports system reviewed; no additional complaints, except as documented Respiratory Respiratory: Reports system reviewed and no additional complaints, except as documented Gastrointestinal Gastrointestinal: Reports system reviewed and no additional complaints, except as documented Genitourinary Genitourinary: Reports system reviewed and no additional complaints, except as documented Musculoskeletal Musculoskeletal: Reports system reviewed; no additional complaints, except as documented Integumentary/Breasts Skin/Breast: Reports system reviewed and no additional complaints, except as documented Neurologic Neurologic: Reports abnormal speech, Reports burning sensations and Reports focal weakness Psychiatric Psychiatric: Reports system reviewed and no additional complaints, except as documented Endocrine Endocrine: Reports system reviewed and no additional complaints, except as documented Hematologic/Lymphatic Hematologic/Lymphatic: Reports system reviewed and no additional complaints, except as documented Allergic/Immunologic Allergic/Immunologic: Reports system reviewed and no additional complaints, except as documented Exam Vital Signs (past 8 hours): - 02/11/18 12:03 02/11/18 12:31 02/11/18 13:01 Temperature Pulse Rate 68 71 33 L Respiratory Rate 19 17 16 Blood Pressure 177/86 H Blood Pressure [Left Arm] 169/72 H 196/69 H Pulse Oximetry 94 92 94 02/11/18 13:35 02/11/18 13:50 02/11/18 14:00 Temperature Pulse Rate 75 80 76 Respiratory Rate 18 12 20 Blood Pressure Blood Pressure [Left Arm] 191/70 H 118/99 H 154/46 H Pulse Oximetry 94 96 96 02/11/18 14:09 02/11/18 14:15 02/11/18 14:30 Temperature Pulse Rate 75 74 75 Respiratory Rate 20 20 20 Blood Pressure Blood Pressure [Left Arm] 170/73 H 127/86 184/56 H Pulse Oximetry 95 96 95 02/11/18 15:00 02/11/18 15:02 02/11/18 17:16 Temperature 97.4 F L Pulse Rate 67 78 Respiratory Rate 16 Blood Pressure 184/56 H 156/77 H Blood Pressure [Left Arm] Pulse Oximetry 95 96 Oxygen Delivery Method Room Air Oxygen Flow Rate 0 Narrative Exam Narrative: Elderly female pleasant no acute distress HEENT exam the lieu left for a facial droop is noted Neck is supple no bruit noted Heart regular rhythm no murmurs Lungs Clear to auscultation Abdomen soft nontender no masses Lower extremities no significant edema Skin warm and dry Neuro exam awake alert oriented x3 she has dysarthria otherwise speech normal no word-finding difficulties I could see and left facial droop noted extraocular muscles were intact cranial nerves were intact no focal motor or sensory deficits she does have some mild ataxia in the right upper extremity Objective Labs Result Diagrams: 02/11/18 12:44 02/11/18 12:44 Labs: Laboratory Results - last 24 hr 02/11/18 02/11/18 02/11/18 12:44 12:44 12:44 WBC 8.1 RBC 4.68 Hgb 14.0 Hct 42.3 MCV 90.5 MCH 30.0 MCHC 33.1 RDW 14.8 Plt Count 222 Neut % (Auto) 72.1 Lymph % (Auto) 18.5 L [place] % (Auto) 6.3 Eos % (Auto) 1.8 L Baso % (Auto) 1.3 Neut # (Auto) 5800 PT 11.3 INR 1.1 APTT 31 Sodium 145 Potassium 4.0 Chloride 107 Carbon Dioxide 24 BUN 21 H Creatinine 0.60 Estimated GFR > 60.0 BUN/Creatinine Ratio 35.0 H Glucose 123 H Calcium 9.1 Troponin I < 0.012 Assessment & Plan Plan: Assessment/Plan Narrative: One. Acute stroke there is on the CT angiogram evidence of carotid artery stenosis mild. She has some left facial droop and some dysarthria as her main symptoms. Patient will be admitted to the hospital neuro checks to be done she was on aspirin so we will switch her to Plavix. She has been in sinus rhythm no signs of AFib but we will do cardiac monitoring frequent neurochecks MRI and MRA will be done to further evaluate the stroke. Speech therapy and physical therapy to be consulted. 2. Prior history of hypertension has not been on medication for several years. She got up as high as 200 systolic plan to give her some as needed labetalol or keeping her pressure below 180 3. Chronic hyperlipidemia unable to take statins. Consider Zetia for this patient 4. Code status patient desires to be full code Scores NIHSS Level of Conciousness: Alert, keenly responsive Ask month/age: Answers both questions correctly. Open/close eyes, close hand: Performs both tasks correctly Best gaze horizontal: Normal Visual chambers: No visual loss Facial palsy: Minor paralysis, flattened nasolabial fold, asymmetry on smiling Left arm drift: No drift for full 10 sec Right arm drift: No drift for full 10 sec Left leg drift: No drift for full 10 sec Right leg drift: No drift for full 10 sec Limb ataxia: Present in one limb Sensory on face/arms/legs: Normal, no sensory loss Best language: No aphasia, normal Dysarthria: Mild to mod,some slurring Extinction or inattention: No abnormality Total NIH Stroke scale score: 3 Quality VTE Deep Vein Thrombosis/Pulmonary Embolism Present on Admission: No
[2018-02-11 17:32] LABS: Appearance Urine UA CLEAR; Bilirubin Urine UA NEGATIVE (NEGATIVE); Color Urine UA YELLOW; Glucose Urine UA NEGATIVE (Normal); Ketones Urine UA NEGATIVE (NEGATIVE); Leukocyte Esterase Urine UA NEGATIVE (NEGATIVE); Nitrite Urine UA NEGATIVE (Negative); Occult Blood Urine UA NEGATIVE (Negative); Protein Urine UA NEGATIVE (Negative); Specific Gravity Urine UA <=1.005 (1.000-1.035); Urobilinogen Urine UA 0.2 E.U./dL (0.2)
[2018-02-11 17:44] LABS: Urine Cocaine Negative (Negative); Urine Tetrahydrocannabinol Negative (Negative)
[2018-02-11 17:45] LABS: Urine Amphetamines Negative (Negative); Urine Barbiturates Negative (Negative); Urine Benzodiazepines Negative (Negative); Urine MDMA Negative (Negative); Urine Methadone Negative (Negative); Urine Methamphetamines Negative (Negative); Urine Morphine/Opi cutoff 2000 Negative (Negative); Urine Oxycodone Negative (Negative); Urine Phencyclidine Negative (Negative); Urine Tricyclic Antidepressant Negative (Negative)
[2018-02-11] MEDS: SERTRALINE 50 MG TABLET PO (20:27)
[2018-02-12] VITALS (8 sets, daily range): BP systolic 127–153; BP diastolic 76–87; PULSE 57–74; RESP 16–20; TEMP 36.3–36.9; O2SAT 90–97
[2018-02-12] MEDS: ZOLPIDEM 5 MG TABLET PO ×2 (00:06→23:01)
--- NOTE | 2018-02-12 00:44 | PC.NURSE ---
caustic cresylate shift superintendent: 0000 Pt is a/ox3. Very mild right side facial droop, slurred speech noted. Able to ambulate to bathroom with 1PA minimal assist. Pt requested Ambien for sleep, medicated per request. Bed alarm on.
--- NOTE | 2018-02-12 09:27 | PT.IIE ---
Medical History (Last Updated 02/11/18 @ 17:27 by Brayden Ramos MD) Depression (Acute) Peripheral arterial disease (Acute) COPD (chronic obstructive pulmonary disease) (Chronic) History of hypertension (Inactive) Dyslipidemia (Acute) H/O: hysterectomy (Acute) Physical Therapy Inpatient Evaluation/Re-Eval M1 PT/OT-IP Prior Functional Status Start: 02/12/18 13:27 Freq: NEEDED Status: Active Protocol: Document 02/12/18 09:27 [facility] (Rec: 02/12/18 13:40 [facility] [id number]) Medical Review Prior Functional Status Medical History Reviewed Yes Communication WNL Mobility and Gait indep. community ambulator without device; states she loves to dance Activities of Daily Living and IADL's indep. I/ADLs including driving Prior Functional Level (Other details) R hand dominant Social History Household Members family none Living Arrangements House Number of Floors (Floors) Two Floors Number of Stairs To Enter/Railing? 15 steps with rail on R descending to second floor ( guest bedroom, computer downstairs). Can live on main upper level with no steps to enter/exit home. Home Environment Standard Height Toilet Walk in Shower Home Equipment Straight Cane Additional Social History Comment lives alone, but has friend and family that can take her home with them or stay if needed per pt. Pt under observation for possible CVA, negative head CT , head neck/CTA, and chest radiograph. Presented with L sided facial droop and dysarthria. M2 PT-IP Current Condition Start: 02/12/18 13:27 Freq: NEEDED Status: Active Protocol: Document 02/12/18 09:27 [facility] (Rec: 02/12/18 13:40 [facility] [id number]) Physical Therapy Current Condition Current Condition Evaluation Date 02/12/18 Treatment Diagnosis possible CVA, impaired gait/ balance/mobility. Onset Date 02/11/18 M3 PT-IP Subjective Start: 02/12/18 13:27 Freq: NEEDED Status: Active Protocol: Document 02/12/18 09:27 [facility] (Rec: 02/12/18 13:40 [facility] [id number]) Subjective Physical Therapy Visit Type Type Initial Evaluation Visit Start Time 09:00 Visit Stop Time 09:27 Total Visit Minutes 27 Number of SHEARING SUPERVISOR Visits 0 Physical Therapy Visit Comments Patient Comments pt states that she does not have any numbness, her facial droop and weird feeling is no longer as severe. Patient Goals to go home, be able to dance again. Therapy Pain Assessment Pain Present Pain Present Denied Pain M4 PT-IP Mobility and Gait Start: 02/12/18 13:27 Freq: NEEDED Status: Active Protocol: Document 02/12/18 09:27 [facility] (Rec: 02/12/18 13:40 [facility] [id number]) PT-Bed Mobility Assessment Supine to Sit Supine to Sit Standby Assistance Sit to Supine Sit to Supine Standby Assistance Scooting Scooting to Edge of Bed Standby Assistance Scooting Up and Down in Bed Standby Assistance PT-Transfer Assessment Sit to and From Stand Sit to and from Stand Contact Guard Assistance Equipment Transfer Assistive Device Gait Belt Front Wheeled Walker Transfers Transfer Destination Bed Chair Transfer Technique Stand Step Pivot Transfer Ability Level of Assist Contact Guard Assistance Gait Assessment Gait Gait Assistance Required: Contact Guard Assist Distance (Feet) 200 Assistive Devices Assistive Device Gait Belt Straight Cane Front Wheeled Walker Gait Deviations General Gait Pattern Decreased Stride Length Decreased Feet Clearance Factors Limiting Gait Function Factors Limiting Gait Function Decreased Activity Tolerance Decreased Strength Poor Balance Comments Gait Comments 100 ft with FWW and CGA, then 100 ft with SPC and CGA- occasional increased lateral sway using SPC in the L hand. PT-Balance Assessment Sitting Balance and Reactions Static Sitting Balance Ability Good Dynamic Sitting Balance Ability Fair Standing Balance and Reactions Static Standing Balance Ability Fair Dynamic Standing Balance Ability Fair Device Used FWW, SPC Balance Tests Single Limb Standing L side 4 sec, R side 1 sec Tandem Standing 2 sec each situation Comments Other Balance Tests/Deviations/Treatment normal stance EO and EC WNL : feet together EC 10 sec with increased sway M5 PT-IP Objective Assessments Start: 02/12/18 13:27 Freq: NEEDED Status: Active Protocol: Document 02/12/18 09:27 [facility] (Rec: 02/12/18 13:40 [facility] [id number]) Orientation Orientation/Cognition Level of Alertness Alert Orientation Name Age Birthday Month Date Year Day of Week Place Situation Language Function Ability Garbled Speech Safety Awareness Decreased Safety Awareness Gross Range of Motion Upper Extremity ROM Assessment Within Functional Limits Lower Extremity ROM Assessment Within Functional Limits Strength Upper Extremity Strength Assessment Within Functional Limits Lower Extremity Strength Assessment Right Impaired Hip flexion 4/5 B Knee flexion 3+/5 R and 5/5 L, extension 4/5 R and 5/5 L Ankle DF 4+/5 B Coordination Assessment Gross Coordination Gross Coordination Impaired Assessment Finger to Nose Test Minimal Impairment Pronation/Supination Test Minimal Impairment Foot Tapping Test Normal Performance Heel on Golden Test Minimal Impairment Coordination Comments slight to minimal impairment on the R LE and UE Sensation Assessment Sensation Gross Sensation WNL Muscle Tone Muscle Tone WNL Yes M6 PT-IP Treatment Start: 02/12/18 13:27 Freq: NEEDED Status: Active Protocol: Document 02/12/18 09:27 [facility] (Rec: 02/12/18 13:40 [facility] [id number]) Physical Therapy Treatment Education Education Provided Precautions Safety M7 PT-IP Assessment and Plan Start: 02/12/18 13:27 Freq: NEEDED Status: Active Protocol: Document 02/12/18 09:27 [facility] (Rec: 02/12/18 13:40 [facility] [id number]) PT Summary Assessment and Plan Potential Rehabilitation Potential Good Status of Condition at Evaluation Evolving Summary Impairments Strength Balance Coordination Transfers Gait Activity Tolerance Assessment Summary Pt presented initially in ER with L sided facial droop and dysarthria, NIH scale 3. On examination, pt appears to have slight to minimal impairment of coordination of the R UE and LE (opposite side of facial droop reported). Her sensation is intact. Pt is R hand dominant. She requires CGA with gait, able to use a SPC but should not be ambulated without a gait belt and assistance at this time. MRI to be performed today. Expect pt may be able to d/c home if she has assistance ( someone to stay with her or take them home with her) as she is not safe to be indep. at home at this time. Pt would greatly benefit from continued skilled physical therapy during this episode of care in acute setting, and possibly OP PT/OT/MORTGAGE ORIGINATOR upon d/c . Goals Bed Mobility Goal Independent Transfer Goal Independent Gait Goal Independent Cane Gait Distance 300 Days to Meet Goals 3 Frequency of Treatment Frequency Of Treatment Twice a Day Treatment Plan Physical Therapy Treatment Plan Bed Mobility Training Transfer Training Gait Training Therapeutic Exercise Balance Retraining Discharge Planning Neuromuscular Re-ed Other Recommendations and Next Treatment prog. gait, standing balance Focus training Recommendations To Nursing Amount of Assist Needed 1 Person Assist Discharge Recommendations PT Discharge Recommendations Home with 24/ Assist Outpatient PT Equipment Needed for Home Before FWW vs. her own SPC, will Discharge continue to monitor. Will need FWW if she is to d/c today.
[2018-02-12] MEDS: CLOPIDOGREL 75 MG TABLET PO (09:38)
[2018-02-12] MEDS: OXYBUTYNIN 5 MG ER TAB PO (09:38)
[2018-02-12] MEDS: SODIUM CHLORIDE 0.9% FLUSH 10 ML IV ×2 (09:39→20:06)
--- NOTE | 2018-02-12 12:12 | CM.MNRNOTE ---
0900- Pt NIH Stroke Scale a 3. Pt does have some expressive aphagia and issues speaking. L.sided facial droop is noted. She has had some drooling today. She states that her dentures are fairly new and this has also contributed to drooling and difficulty speaking. Pts son states that she does have more of a speech problem after being admitted to the hospital. Pt answered all stroke pictures right. Down for her MRI and PT worked with pt and also noticed that she has some issues with ambulating.
--- NOTE | 2018-02-12 12:35 | PM.PN.1 ---
Subjective Date Patient Seen: 02/12/18 Time Patient Seen: 12:35 Interval history: Patient feels her symptoms are better today compared to yesterday. The left side numbness seem to be better. She was able to work with physical therapy earlier today. Exam Vital Signs (past 8 hours): - 02/12/18 05:20 02/12/18 07:32 02/12/18 11:30 Temperature 97.9 F 97.3 F L 97.4 F L Pulse Rate 57 L 64 74 Respiratory Rate 20 18 16 Blood Pressure 153/87 H 141/84 H 127/78 Pulse Oximetry 94 94 96 02/12/18 11:48 Temperature Pulse Rate Respiratory Rate Blood Pressure Pulse Oximetry 97 Oxygen Delivery Method Room Air Oxygen Flow Rate 0 Narrative Exam Narrative: General: Elderly woman in no acute distress Lungs: Clear to auscultation bilaterally Heart: Regular rhythm, no murmur appreciated Abdomen: Soft, nontender Extremities: No pitting edema Neuro: Alert and oriented x3, she still has mild dysarthria . Objective Imaging MRI - head: Radiologist's impression: 1. 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 No acute intracranial bleed, midline shift or mass effect. 2. Diffuse atrophy and moderate periventricular white matter chronic ischemic microangiopathic changes. No area of abnormal contrast enhancement. BRAIN MR ANGIOGRAM: No hemodynamically significant stenosis or aneurysm is seen in the intracranial circulation. NECK MR ANGIOGRAM: No hemodynamically significant stenosis are noted in bilateral carotid arteries. Labs Result Diagrams: 02/11/18 12:44 02/11/18 12:44 Labs: Laboratory Results - last 24 hr 02/11/18 02/11/18 17:25 17:25 Urine Color Yellow Urine Appearance Clear Urine pH 7.0 Ur Specific [place] <=1.005 Urine Protein Negative Urine Glucose (UA) Negative Urine Ketones Negative Urine Occult Blood Negative Urine Nitrate Negative Urine Bilirubin Negative Urine Urobilinogen 0.2 Ur Leukocyte Esterase Negative Urine RBC None seen Urine WBC None seen Urine Bacteria None seen Ur Culture Indicated? Not Reportable Micro UA Comment Not Reportable Urine Opiates Screen Negative Ur Oxycodone Screen Negative Urine Methadone Screen Negative Ur Barbiturates Screen Negative U Tricyclic Antidepress Negative Ur Phencyclidine Scrn Negative Ur Amphetamines Screen Negative U Methamphetamines Scrn Negative Ur MDMA Scrn (Ecstasy) Negative U Benzodiazepines Scrn Negative Urine Cocaine Screen Negative U Marijuana (THC) Screen Negative Assessment & Plan Plan: Assessment/Plan Narrative: 1. 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 She was started on Plavix yesterday. She did receive a full dose aspirin at the ER yesterday. We will give her another full-dose aspirin today. 2. Hyperlipidemia: She has tried several statin drugs in the past. She was not able to tolerate those medications. We will start her on Crestor 10 mg once a day. I have asked her to use: Co Q10 supplement. 3. Hypertension: She has not being on antihypertensive medication for several years. She did receive as needed hydralazine and labetalol after hospital admission. Currently her blood pressure is in good range. We will continue monitor. We would like to keep her systolic blood pressure in the range of 150-160 for the next 24 hr. 4. Disposition: Likely discharge home tomorrow with outpatient therapy. Quality VTE Deep Vein Thrombosis/Pulmonary Embolism Present on Admission: No
[2018-02-12] MEDS: ASPIRIN 325 MG TABLET PO (12:44)
--- NOTE | 2018-02-12 14:15 | PC.NURSE ---
Pt discharged to home. Iv taken out and cath tip intact. Pt refused her vicodin script and said she cant take it. Pt advised to take her tylenol as she has in the hospital with her meloxicam. Out to car with shop laborer and drove pt home.
--- NOTE | 2018-02-12 14:19 | CM.DANOTE ---
DCP/Assessment: Reviewed chart. Patient is a 77yr old female admitted to [facility] with [facility]. [facility] 1)Medicare [facility] PCP is Vanna Ceballos PA-C. Met with patient and family/friend at bedside explained CM/SW role. Patient reports that she was completely I prior to admit. Patient resides alone in [place]. Patient's son/Roland and daughter/Linda both at bedside. Patient's good friend/Silvana also at bedside. Patient seen by PT today and they recommend home with family/friend support and outpatient therapy. OT/ST evaluations pending. Patient in agreement to either go to her friend's or stay with one of her kids until she feels more stable. Patient prefers outpatient therapy vs. HH. Patient does not want or feel that she needs to be homebound. It is also anticipated that patient will need FWW for home use. Patient agreeable. Will discuss with MD and therapy prior to d/c. Patient does have cane at home but says she has only used it once. P: Anticipate home with supportive family/friend when medically stable. Patient prefers outpatient therapy and will most likely need FWW prior to d/c. CLARA Lockett
--- NOTE | 2018-02-12 15:50 | PT.IPTN ---
Physical Therapy Treatment Note M2 PT-IP Current Condition Start: 02/12/18 13:27 Freq: NEEDED Status: Active Protocol: Document 02/12/18 09:27 RCC (Rec: 02/12/18 13:40 RCC [id number]) Physical Therapy Current Condition Current Condition Evaluation Date 02/12/18 Treatment Diagnosis possible CVA, impaired gait/ balance/mobility. Onset Date 02/11/18 M3 PT-IP Subjective Start: 02/12/18 13:27 Freq: NEEDED Status: Active Protocol: Document 02/12/18 15:07 LJ (Rec: 02/12/18 15:50 LJ [id number]) Subjective Physical Therapy Visit Type Type Treatment Note Visit Start Time 15:07 Visit Stop Time 15:35 Total Visit Minutes 28 Notes Pt in room with family. Willing to ambulate in hallway M4 PT-IP Mobility and Gait Start: 02/12/18 13:27 Freq: NEEDED Status: Active Protocol: Document 02/12/18 15:07 LJ (Rec: 02/12/18 15:50 LJ [id number]) PT-Bed Mobility Assessment Supine to Sit Supine to Sit Independent Scooting Scooting to Edge of Bed Independent PT-Transfer Assessment Sit to and From Stand Sit to and from Stand Independent Equipment Transfer Assistive Device Gait Belt Front Wheeled Walker Transfers Transfer Destination Bed Transfer Technique Stand Step Pivot Transfer Ability Level of Assist Standby Assistance Gait Assessment Gait Gait Assistance Required: Standby Assistance Distance (Feet) 210 Assistive Devices Assistive Device None Gait Belt Front Wheeled Walker Gait Deviations General Gait Pattern Decreased Stride Length Decreased Feet Clearance Factors Limiting Gait Function Factors Limiting Gait Function Decreased Activity Tolerance Decreased Strength Poor Balance Comments Gait Comments 180' in hallway with FWW. Occasional lateral sway with self-correction. In room ambulation w/o any device 30' around room then to bed. M5 PT-IP Objective Assessments Start: 02/12/18 13:27 Freq: NEEDED Status: Active Protocol: Document 02/12/18 09:27 RCC (Rec: 02/12/18 13:40 RCC [id number]) Orientation Orientation/Cognition Level of Alertness Alert Orientation Name Age Birthday Month Date Year Day of Week Place Situation Language Function Ability Garbled Speech Safety Awareness Decreased Safety Awareness Gross Range of Motion Upper Extremity ROM Assessment Within Functional Limits Lower Extremity ROM Assessment Within Functional Limits Strength Upper Extremity Strength Assessment Within Functional Limits Lower Extremity Strength Assessment Right Impaired Hip flexion 4/5 B Knee flexion 3+/5 R and 5/5 L, extension 4/5 R and 5/5 L Ankle DF 4+/5 B Coordination Assessment Gross Coordination Gross Coordination Impaired Assessment Finger to Nose Test Minimal Impairment Pronation/Supination Test Minimal Impairment Foot Tapping Test Normal Performance Heel on Golden Test Minimal Impairment Coordination Comments slight to minimal impairment on the R LE and UE Sensation Assessment Sensation Gross Sensation WNL Muscle Tone Muscle Tone WNL Yes Other Assessments Other Other Assessments BP 122/75, MAP 101, ID 68 prior to session, BP 144/78, MAP 110, ID 69 after session. M6 PT-IP Treatment Start: 02/12/18 13:27 Freq: NEEDED Status: Active Protocol: Document 02/12/18 15:07 LORENA (Rec: 02/12/18 15:50 [id number]) Physical Therapy Treatment Education Education Provided Safety M7 PT-IP Assessment and Plan Start: 02/12/18 13:27 Freq: NEEDED Status: Active Protocol: Document 02/12/18 15:07 LORENA (Rec: 02/12/18 15:50 [id number]) PT Summary Assessment and Plan Potential Rehabilitation Potential Good Status of Condition at Evaluation Evolving Summary Impairments Strength Balance Coordination Transfers Gait Activity Tolerance Assessment Summary Pt able to ambulate w/FWW in hallway demonstrating slight LOB x 2 (self-corrected) SBA. Ambulation in room CGA with no LOB. Pt aware of difference in balance since episode. No noticeable difference in RLE vs LLE step length Goals Days to Meet Goals 3 Frequency of Treatment Frequency Of Treatment Twice a Day Treatment Plan Physical Therapy Treatment Plan Bed Mobility Training Transfer Training Gait Training Therapeutic Exercise Balance Retraining Discharge Planning Neuromuscular Re-ed Other Recommendations and Next Treatment prog. gait, standing balance Focus training Recommendations To Nursing Amount of Assist Needed 1 Person Assist Discharge Recommendations PT Discharge Recommendations Home with 01/11 Assist Outpatient PT
[2018-02-12] MEDS: ROSUVASTATIN 10 MG TABLET PO (20:06)
[2018-02-12] MEDS: SERTRALINE 50 MG TABLET PO (20:06)
[2018-02-13] VITALS (10 sets, daily range): BP systolic 128–176; BP diastolic 65–78; PULSE 53–67; RESP 16–19; TEMP 36.2–36.8; O2SAT 92–98
[2018-02-13] MEDS: CLOPIDOGREL 75 MG TABLET PO (09:43)
[2018-02-13] MEDS: SODIUM CHLORIDE 0.9% FLUSH 10 ML IV ×2 (09:43→20:16)
[2018-02-13] MEDS: OXYBUTYNIN 5 MG ER TAB PO (09:43)
--- NOTE | 2018-02-13 09:45 | PT.IPTN ---
Addendum entered and electronically signed by Arabella Hampton, PT 02/13/18 11:22: I certify I directly supervised and guided this session. R Suzanne Hampton, DPT Original Note: Current Diagnoses Cerebral infarction, unspecified (02/11/18) Physical Therapy Treatment Note M2 PT-IP Current Condition Start: 02/12/18 13:27 Freq: NEEDED Status: Active Protocol: Document 02/12/18 09:27 RCC (Rec: 02/12/18 13:40 RCC [id number]) Physical Therapy Current Condition Current Condition Evaluation Date 02/12/18 Treatment Diagnosis possible CVA, impaired gait/ balance/mobility. Onset Date 02/11/18 M3 PT-IP Subjective Start: 02/12/18 13:27 Freq: NEEDED Status: Active Protocol: Document 02/13/18 10:58 (Rec: 02/13/18 11:17 [id number]) Subjective Physical Therapy Visit Type Type Treatment Note Visit Start Time 09:45 Visit Stop Time 10:10 Total Visit Minutes 25 Number of FLOWER PICKER Visits 0 Physical Therapy Visit Comments Patient Comments Pt agreeable to mobilize with PT today. M4 PT-IP Mobility and Gait Start: 02/12/18 13:27 Freq: NEEDED Status: Active Protocol: Document 02/13/18 10:58 (Rec: 02/13/18 11:17 [id number]) PT-Bed Mobility Assessment Scooting Scooting to Edge of Bed Standby Assistance PT-Transfer Assessment Sit to and From Stand Sit to and from Stand Standby Assistance Equipment Transfer Assistive Device None Gait Belt Orthotic/Prosthetic Devices or Brace: No Transfers Transfer Destination Chair Transfer Technique Pt ambulated to/from chair Comments Mobility Comments sit <> stand is SBA and pt able to complete without UE use. She does however demonstrate decreased control with descending. Gait Assessment Gait Gait Assistance Required: Contact Guard Assist Distance (Feet) 200 Able to Maintain Weight Bearing Status Yes During Gait Assistive Devices Assistive Device Gait Belt Orthotic/Prosthetic Devices or Brace: No Gait Deviations General Gait Pattern Decreased Stride Length Decreased Feet Clearance Narrow Based Gait Wide Based Gait Factors Limiting Gait Function Factors Limiting Gait Function Decreased Activity Tolerance Decreased Strength Incoordination Poor Balance Poor Safety Awareness Comments Gait Comments Pt ambulated 200 ft with no AD CGA. She demonstrates sigificant variability in step width during ambulation, short step length and occasionally crosses one foot in front of the other. She is (+) for several minor LOB that she is able to correct. Sway and step variability increases when she is told to turn her head R or L, or when she is trying to hold a conversation. She is able to partially correct her gait mechanics when she is cued and allowed to concentrate on just her steps. PT-Balance Assessment Sitting Balance and Reactions Static Sitting Balance Ability Good Dynamic Sitting Balance Ability Fair Standing Balance and Reactions Static Standing Balance Ability Fair Dynamic Standing Balance Ability Poor Device Used None, gait belt only Balance Tests Single Limb Standing L 5 secs. R 10 secs. with 1 finger on countertop Functional Assessments Functional Tests Tinetti Balance and Gait Assessment Other Functional Tests Performed On tinetti Balance testing, pt has significant LOB with nudge testing, needs minAx1 to recover. M5 PT-IP Objective Assessments Start: 02/12/18 13:27 Freq: NEEDED Status: Active Protocol: Document 02/13/18 10:58 (Rec: 02/13/18 11:17 [email or web address]) Orientation Orientation/Cognition Level of Alertness Alert Orientation Name Place Situation Safety Awareness Decreased Safety Awareness M6 PT-IP Treatment Start: 02/12/18 13:27 Freq: NEEDED Status: Active Protocol: Document 02/13/18 10:58 (Rec: 02/13/18 11:17 [email or web address]) Physical Therapy Treatment Education Education Provided Safety Other Treatments Other Treatment Performed Counter top single leg balance R and L leg X5 Heel raises X10 Pt and caregiver education regarding pt need for 24/7 assist for safety at this time due to high level of fall risk and impaired balance. M7 PT-IP Assessment and Plan Start: 02/12/18 13:27 Freq: NEEDED Status: Active Protocol: Document 02/13/18 09:45 (Rec: 02/13/18 11:17 [id number]) PT Summary Assessment and Plan Potential Rehabilitation Potential Good Status of Condition at Evaluation Stable Summary Impairments Strength Balance Coordination Cognition Bed Mobility Transfers Activity Tolerance Progress Towards Goals Progressing Toward Goals Assessment Summary Pt with impaired balance, increased fall risk and difficulty walking. She was able to ambulate a total of 200 ft today with no AD CGA, however demonstrates signifcant fall risk with narrow/variable step width, significant sway and minor LOB throughout walking. Gait quality worsens when she holds a conversation or is required to scan her environment while walking. High fall risk is also evidenced by 18/24 score on Tinetti and decreased SLS times. Recommend Inpatient Rehab as pt demonstrates physical ability to tolerate 3 hrs/day and requires significant skilled intervention for gait training and dynamic balance intervention. Goals Bed Mobility Goal Independent Transfer Goal Standby Assistance Gait Goal Standby Assistance Gait Distance 300 Days to Meet Goals 3 Frequency of Treatment Frequency Of Treatment Once a Day Treatment Plan Physical Therapy Treatment Plan Bed Mobility Training Transfer Training Gait Training Therapeutic Exercise Balance Retraining Discharge Planning Hot or Cold Pack Neuromuscular Re-ed Coordination Retraining Manual Therapy Other Recommendations and Next Treatment prog. gait, standing balance Focus training Recommendations To Nursing Amount of Assist Needed 1 Person Assist Discharge Recommendations PT Discharge Recommendations Acute Rehab
--- NOTE | 2018-02-13 10:29 | PC.NURSE ---
Day shift pt is alert able to communicate needs does have mild slurred speech. working with PT/OT. Daughters at bedside. Denies any pain or discomfort, denies h/a. Call light within reach and chair alarm on.
--- NOTE | 2018-02-13 11:29 | CM.DPC ---
Referral faxed to [facility] [place] [facility] per Sharmin
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
--- NOTE | 2018-02-13 13:23 | PM.PN.1 ---
Subjective Date Patient Seen: 02/13/18 Time Patient Seen: 09:30 Interval history: Patient continued to have dysarthria. She feels she has improvement of her right-sided weakness. Exam Vital Signs (past 8 hours): - 02/13/18 07:00 02/13/18 07:35 Temperature 98.2 F Pulse Rate 54 L Respiratory Rate 16 Blood Pressure 176/78 H Pulse Oximetry 96 96 Oxygen Delivery Method Room Air Oxygen Flow Rate 0 Narrative Exam Narrative: General: Elderly woman in no acute distress Lungs: Clear to auscultation bilaterally Heart: Regular rhythm, no murmur appreciated Abdomen: Soft, nontender Neuro: Alert and oriented x3, mild right-sided facial droop, right arm muscle strains is slightly weaker compared to the left. Her gait is slightly shuffled and unsteady. She was able to walk with a walker with standby assist. Objective Labs Result Diagrams: 02/11/18 12:44 02/11/18 12:44 Assessment & Plan Plan: Assessment/Plan Narrative: 1. 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 She has significant dysarthria, mild right-sided weakness. She also has cognitive impairment. Her slums score was 22/30. She was started on Plavix yesterday. She did receive a full dose aspirin on February 11 and February 12. We will give her another full-dose aspirin today. 2. Hyperlipidemia: Her LDL was greater than 200. She has tried several statin drugs in the past. She was not able to tolerate those medications. Crestor 10 mg once a day was started on February 12, 2018. I have asked her to use Co Q10 supplement as outpatient. 3. Hypertension: She has not been on antihypertensive medication for several years. She did receive as needed hydralazine and labetalol after hospital admission. She does have several blood pressure readings that were elevated. We will start her on lisinopril 10 mg daily. 4. Disposition: I have discussed discharge planning with occupational therapist and outpatient case manager. Patient has significant cognitive deficit and dysarthria. She lives alone. She would benefit from short-term care home facility placement before discharging home. She will need PT, OT, and speech pathologist evaluation and treatment at the care home facility. Likely discharge to care home facility tomorrow. Quality VTE Deep Vein Thrombosis/Pulmonary Embolism Present on Admission: No
--- NOTE | 2018-02-13 13:24 | CM.DPC ---
DCP/continued: Reviewed chart. Spoke with therapy and MD in AM rounds. All in agreement that current recommendation for patient is SNF vs. Acute rehab. Met with patient and family at bedside. Patient is in agreement to short stay at either facility. Patient's preference is [facility] in [place]. Placed call to [facility] and spoke with Larisa. She requested clinical be faxed. All clinical faxed and waiting for response. Patient and family aware of above. If [facility] unable to accept, SNF list has been provided. D/C anticipated for tomorrow. P: Pending. CLARA Lockett
--- NOTE | 2018-02-13 13:30 | P.PN_ITS ---
Subjective Date Patient Seen: 02/13/18 Time Patient Seen: 09:30 Interval history: Patient continued to have dysarthria. She feels she has improvement of her right-sided weakness. Exam Vital Signs (past 8 hours): - 02/13/18 07:00 02/13/18 07:35 Temperature 98.2 F Pulse Rate 54 L Respiratory Rate 16 Blood Pressure 176/78 H Pulse Oximetry 96 96 Oxygen Delivery Method Room Air Oxygen Flow Rate 0 Narrative Exam Narrative: General: Elderly woman in no acute distress Lungs: Clear to auscultation bilaterally Heart: Regular rhythm, no murmur appreciated Abdomen: Soft, nontender Neuro: Alert and oriented x3, mild right-sided facial droop, right arm muscle strains is slightly weaker compared to the left. Her gait is slightly shuffled and unsteady. She was able to walk with a walker with standby assist. Objective Labs Result Diagrams: 02/11/18 12:44 02/11/18 12:44 Assessment & Plan Plan: Assessment/Plan Narrative: 1. 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 She has significant dysarthria, mild right-sided weakness. She also has cognitive impairment. Her slums score was 22/30. She was started on Plavix yesterday. She did receive a full dose aspirin on February 11 and February 12. We will give her another full-dose aspirin today. 2. Hyperlipidemia: Her LDL was greater than 200. She has tried several statin drugs in the past. She was not able to tolerate those medications. Crestor 10 mg once a day was started on February 12, 2018. I have asked her to use Co Q10 supplement as outpatient. 3. Hypertension: She has not been on antihypertensive medication for several years. She did receive as needed hydralazine and labetalol after hospital admission. She does have several blood pressure readings that were elevated. We will start her on lisinopril 10 mg daily. 4. Disposition: I have discussed discharge planning with occupational therapist and geriatric case manager. Patient has significant cognitive deficit and dysarthria. She lives alone. She would benefit from short-term alf facility placement before discharging home. She will need PT, OT, and speech pathologist evaluation and treatment at the alf facility. Likely discharge to alf facility tomorrow. Quality VTE Deep Vein Thrombosis/Pulmonary Embolism Present on Admission: No
[2018-02-13] MEDS: ASPIRIN EC 325 MG TABLET PO (13:46)
[2018-02-13] MEDS: LISINOPRIL 10 MG TABLET PO (13:46)
--- NOTE | 2018-02-13 14:24 | CM.DPC ---
Referral faxed to [facility] per Sharmin
--- NOTE | 2018-02-13 15:24 | ST.IPIE ---
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 She lives at home alone and is independent in all ADLS at baseline. Family present in room. Patient reports she has temporary dentures which had a negative affect on her speech prior to CVA. Oral Motor Examination Oral Motor Exam Completed Yes Results Mild-moderate impairments in lingual strength and coordination. Mild right facial droop, more obvious when speaking. No lingual deviation. - Formal Assessment Results OT administered SLUMs. Patient scored 22/30 indicating mild cognitive impairment. - Receptive Language Yes/No Questions Skill Level WFL Following Directions - Verbal Skill Level WFL Auditory Comprehension Skill Level WFL Reading Comprehension Skill Level WFL - Expressive Language Automatic Speech Skill Level WFL Sentence Closure Skill Level WFL Object Naming Skill Level Mildly Impaired Comments 3-5 second delay on some words - Findings Language Findings Patient presents with mild dyarthria affecting articulatory precision. Her speech is ~90% intelligible. Intelligibility decreases in multisyllabic words. Receptive and expressive langauge are within functional limits. No significant aphasia was observed; however, patient reports increased difficulty with word finding consistent with finding of mild cognitive impairment as evidenced by score on SLUMs administered by OT. In addition, patient presents with mild oral phase dysphagia significant for pocketing and decreased self-monitoring during meals. Recommendations Recommendations Patient would benefit from rehab including speech therapy targeting improving speech intelligibility, training in safe swallow strategies and cognitive therapy, specifically short term memory , executive functions and problem solving in order to improve patient's safety for returning home. Recommend patient receive training in functional cognitive tasks such as bill pay, memory for procedural tasks and problem solving skills. Treatment Goals Short Term Goals The patient will demonstrate the ability to adequately self -monitor swallowing skills and perform tongue sweep during meals. The patient will self-monitor speech intelligibility during conversation and utilize dysarthria speaking strategies as needed to ensure 100% intelligibility and avoid communication breakdowns. 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
--- NOTE | 2018-02-13 17:28 | PC.NURSE ---
Addendum entered by Yanira Reeves R.N. 02/13/18 21:38: Pt ambulated in hallway w/o incidence. Left side slightly weaker than right. NIH = 2. Tele NSR per ICU staff. Call light w/in reach. Bed alarm on for pt safety. D/C to [facility] tomorrow. Original Note: Pt sitting in chair for dinner. Denies any discomfort. 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 Pt stready on feet when walked to BR. Call light w/in reach.
[2018-02-13] MEDS: ROSUVASTATIN 10 MG TABLET PO (20:15)
[2018-02-13] MEDS: SERTRALINE 50 MG TABLET PO (20:16)
[2018-02-14 05:35] VITALS: BP 109/52; PULSE 50; RESP 18; TEMP 36.7; O2SAT 95
--- NOTE | 2018-02-14 07:07 | PC.NURSE ---
02/14 0707; pt alert and oriented x4, vss on ra, has some significant bradycardia per ICU, as tele reading down to 30's and 40's while sleeping. pt awokened to assess status, denied any abnormalities and assured she was feeling fine. Right sided deficit continues with speech impairment. No significant changes this shift.
[2018-02-14] MEDS: ASPIRIN EC 81 MG TABLET PO (08:46)
[2018-02-14] MEDS: OXYBUTYNIN 5 MG ER TAB PO (08:46)
[2018-02-14] MEDS: CLOPIDOGREL 75 MG TABLET PO (08:46)
[2018-02-14] MEDS: LISINOPRIL 10 MG TABLET PO (08:46)
[2018-02-14] MEDS: SODIUM CHLORIDE 0.9% FLUSH 10 ML IV (08:47)
[2018-02-14 09:00] VITALS: BP 123/74; PULSE 59; RESP 18; TEMP 36.2; O2SAT 95
--- NOTE | 2018-02-14 09:41 | PT.IPTN ---
Current Diagnoses Cerebral infarction, unspecified (02/11/18) Physical Therapy Treatment Note M2 PT-IP Current Condition Start: 02/12/18 13:27 Freq: NEEDED Status: Active Protocol: Document 02/12/18 09:27 RCC (Rec: 02/12/18 13:40 RCC [id number]) Physical Therapy Current Condition Current Condition Evaluation Date 02/12/18 Treatment Diagnosis possible CVA, impaired gait/ balance/mobility. Onset Date 02/11/18 M3 PT-IP Subjective Start: 02/12/18 13:27 Freq: NEEDED Status: Active Protocol: Document 02/14/18 09:35 GGD (Rec: 02/14/18 09:41 GGD [id number]) Subjective Physical Therapy Visit Type Type Treatment Note Visit Start Time 09:10 Visit Stop Time 09:35 Total Visit Minutes 25 Number of AUTOMATED CUTTING MACHINE OPERATOR Visits 1 Physical Therapy Visit Comments Patient Comments Pt states she hoping to D/C today. M4 PT-IP Mobility and Gait Start: 02/12/18 13:27 Freq: NEEDED Status: Active Protocol: Document 02/14/18 09:35 GGD (Rec: 02/14/18 09:41 GGD [id number]) PT-Bed Mobility Assessment Sit to Supine Sit to Supine Independent Scooting Scooting to Edge of Bed Independent Scooting Up and Down in Bed Independent PT-Transfer Assessment Sit to and From Stand Sit to and from Stand Standby Assistance Equipment Transfer Assistive Device None Gait Belt Orthotic/Prosthetic Devices or Brace: No Transfers Transfer Destination Bed Gait Assessment Gait Gait Assistance Required: Contact Guard Assist Distance (Feet) 220 Able to Maintain Weight Bearing Status Yes During Gait Assistive Devices Assistive Device Gait Belt Orthotic/Prosthetic Devices or Brace: No Gait Deviations General Gait Pattern Decreased Stride Length Decreased Feet Clearance Narrow Based Gait Factors Limiting Gait Function Factors Limiting Gait Function Decreased Activity Tolerance Decreased Strength Incoordination Poor Balance Poor Safety Awareness Comments Gait Comments Pt needed standing rest breaks during gait. M5 PT-IP Objective Assessments Start: 02/12/18 13:27 Freq: NEEDED Status: Active Protocol: Document 02/13/18 10:58 (Rec: 02/13/18 11:17 [id number]) Orientation Orientation/Cognition Level of Alertness Alert Orientation Name Place Situation Safety Awareness Decreased Safety Awareness M6 PT-IP Treatment Start: 02/12/18 13:27 Freq: NEEDED Status: Active Protocol: Document 02/14/18 09:35 GGD (Rec: 02/14/18 09:41 GGD [id number]) Physical Therapy Treatment Education Education Provided Safety Other Treatments Other Treatment Performed Standing balance, NBOS with EC , semi tandem with head turns, SLS, standing heel raises. M7 PT-IP Assessment and Plan Start: 02/12/18 13:27 Freq: NEEDED Status: Active Protocol: Document 02/14/18 09:35 GGD (Rec: 02/14/18 09:41 GGD [id number]) PT Summary Assessment and Plan Summary Assessment Summary Pt mild LOB with standing balance. She unable to place feet in tandem without UE support. She had mild unsteadiness with gait, but no LOB. She was able to ambulated with head turns, but had decrease in pace and unsteadiness. She did fatigue with gait and need 2 standing rest breaks. Treatment Plan Other Recommendations and Next Treatment prog. gait, standing balance Focus training Recommendations To Nursing Amount of Assist Needed 1 Person Assist Discharge Recommendations PT Discharge Recommendations Acute Rehab
[2018-02-14 10:32] VITALS: O2SAT 97
--- NOTE | 2018-02-14 11:44 | CM.DPC ---
DCP/continued: Reviewed chart. Per MD in AM rounds, patient okay to d/c to SNF today. Patient was evaluated by [facility] for acute rehab and was declined because she does not meet acute care criteria. Therefore, AUTOMOTIVE INSTRUCTOR called [facility] and they have accepted. Patient and family aware and agreeable to plan. Orders obtained and PASRR completed. Patient will be scheduled to be picked up by [facility] around 11:00AM. No additional needs identified. P: [facility] today. CLARA Lockett
--- NOTE | 2018-02-14 17:52 | PM.DS.1 ---
History of Present Illness Chief complaint: possible stroke Narrative: Discharge Providers Date of admission: 02/11/18 14:34 Primary care physician: Vanna Ceballos PA-C Consults: 02/11/18 12:03 Consult to Physical Therapy Evaluate & Treat Comment: cva Physician Instructions: Evaluate and Treat 02/11/18 17:09 Consult to Speech Therapy Evaluate & Treat Comment: cva dysarthria Physician Instructions: Evaluate and treat 02/12/18 14:03 Consult to Occupational Therapy Evaluate & Treat Comment: Physician Instructions: Evaluate and treat Discharge provider: Kenyon Mata MD Discharge Date: 02/14/18 Summary Discharge Diagnosis: 1. Acute ischemic CVA in left parietal and basal ganglia territory 2. Right hemiparesis and dysarthria secondary to 1. 3. Hyperlipidemia 4. Hypertension 5. Left ICA 50% focal stenosis on head CTA Hospital Course: Patient had stable neurological course during her admission for acute stroke. She was seen by PT, OT and ST. Neurological deficits are mild to moderate dysarthria and mild weakness of right upper extremity. Her aspirin was switched to Plavix. She was started on lisinopril for BP control and rosuvastatin for cholesterol control prior to discharge. She has history of statin intolerance but had not tried rosuvastatin. Also coenzyme Q10 was prescribed to help ameliorate any myalgias with statin therapy. She has 50% focal stenosis of left ICA on head CTA imaging. Recommend follow-up with carotid duplex ultrasound in 6-12 months. She is being discharged to [facility] for jail PT, OT and ST. Time Spent with Patient Greater than 30 minutes Exam Vital Signs (past 8 hours): - 02/14/18 10:32 Pulse Oximetry 97 Oxygen Delivery Method Room Air Oxygen Flow Rate 0 Objective Labs Result Diagrams: 02/11/18 12:44 02/11/18 12:44 Discharge Plan Discharge Plan Patient Disposition: SNF Transfer to: [facility] Consult as needed: Dental, Hearing, Mental health, Podiatry and Vision I certify the postop hospital jail care is medically necessary on a continuing basis for any conditions for which he/ she received care during this hospitalization.: Yes The receiving facility has agreed to accept transfer and provide medical treatment.: Yes Discharge Med Rec/Prescriptions Prescriptions: New clopidogrel [Plavix] 75 mg Tablet 75 mg PO DAILY Qty: 30 RF: 0 lisinopril 10 mg Tablet 10 mg PO DAILY Qty: 30 RF: 0 rosuvastatin [Crestor] 10 mg Tablet 10 mg PO BEDTIME Qty: 30 RF: 0 coenzyme Q10 100 mg capsule 100 mg PO DAILY Qty: 30 RF: 0 Continue sertraline 50 MG tablet 50 mg PO QDAY Qty: 0 RF: 0 estradiol 0.5 MG tablet 0.5 mg PO 2XW Qty: 0 RF: 0 oxybutynin chloride 5 mg tablet extended release 24hr 5 mg PO DAILY RF: 0 zolpidem 5 MG tablet 5 mg PO HS Qty: 30 RF: 0 Discontinued ASPIRIN (#ASPIRIN E.C.) 81 mg PO QDAY Qty: 0 RF: 0 Follow up/Referrals: Vanna Ceballos PA-C [Primary Care Provider] - Provider Discharge Instructions Diet: Regular Liquid consistency: Normal/Thin [facility] Rehab type: Physical therapy, Occupational therapy and Speech therapy Discharge Data Primary Care Provider: Vanna Ceballos Attending Provider: Brayden Ramos Admit Date/Time: 02/11/18 14:34 Discharges patient from system. Discharge Date/Time: 02/14/18 11:15 Quality VTE Deep Vein Thrombosis/Pulmonary Embolism Present on Admission: No
--- NOTE | 2018-02-14 17:55 | P.DS_ITS ---
History of Present Illness Chief complaint: possible stroke Narrative: Discharge Providers Date of admission: 02/11/18 14:34 Primary care physician: Vanna Ceballos PA-C Consults: 02/11/18 12:03 Consult to Physical Therapy Evaluate & Treat Comment: cva Physician Instructions: Evaluate and Treat 02/11/18 17:09 Consult to Speech Therapy Evaluate & Treat Comment: cva dysarthria Physician Instructions: Evaluate and treat 02/12/18 14:03 Consult to Occupational Therapy Evaluate & Treat Comment: Physician Instructions: Evaluate and treat Discharge provider: Kenyon Mata MD Discharge Date: 02/14/18 Summary Discharge Diagnosis: 1. Acute ischemic CVA in left parietal and basal ganglia territory 2. Right hemiparesis and dysarthria secondary to 1. 3. Hyperlipidemia 4. Hypertension 5. Left ICA 50% focal stenosis on head CTA Hospital Course: Patient had stable neurological course during her admission for acute stroke. She was seen by PT, OT and ST. Neurological deficits are mild to moderate dysarthria and mild weakness of right upper extremity. Her aspirin was switched to Plavix. She was started on lisinopril for BP control and rosuvastatin for cholesterol control prior to discharge. She has history of statin intolerance but had not tried rosuvastatin. Also coenzyme Q10 was prescribed to help ameliorate any myalgias with statin therapy. She has 50% focal stenosis of left ICA on head CTA imaging. Recommend follow-up with carotid duplex ultrasound in 6-12 months. She is being discharged to [facility] for half-way PT, OT and ST. Time Spent with Patient Greater than 30 minutes Exam Vital Signs (past 8 hours): - 02/14/18 10:32 Pulse Oximetry 97 Oxygen Delivery Method Room Air Oxygen Flow Rate 0 Objective Labs Result Diagrams: 02/11/18 12:44 02/11/18 12:44 Discharge Plan Discharge Plan Patient Disposition: SNF Transfer to: [facility] Consult as needed: Dental, Hearing, Mental health, Podiatry and Vision I certify the postop hospital half-way care is medically necessary on a continuing basis for any conditions for which he/ she received care during this hospitalization.: Yes The receiving facility has agreed to accept transfer and provide medical treatment.: Yes Discharge Med Rec/Prescriptions Prescriptions: New clopidogrel [Plavix] 75 mg Tablet 75 mg PO DAILY Qty: 30 RF: 0 lisinopril 10 mg Tablet 10 mg PO DAILY Qty: 30 RF: 0 rosuvastatin [Crestor] 10 mg Tablet 10 mg PO BEDTIME Qty: 30 RF: 0 coenzyme Q10 100 mg capsule 100 mg PO DAILY Qty: 30 RF: 0 Continue sertraline 50 MG tablet 50 mg PO QDAY Qty: 0 RF: 0 estradiol 0.5 MG tablet 0.5 mg PO 2XW Qty: 0 RF: 0 oxybutynin chloride 5 mg tablet extended release 24hr 5 mg PO DAILY RF: 0 zolpidem 5 MG tablet 5 mg PO HS Qty: 30 RF: 0 Discontinued ASPIRIN (#ASPIRIN E.C.) 81 mg PO QDAY Qty: 0 RF: 0 Follow up/Referrals: Vanna Ceballos PA-C [Primary Care Provider] - Provider Discharge Instructions Diet: Regular Liquid consistency: Normal/Thin [facility] Rehab type: Physical therapy, Occupational therapy and Speech therapy Discharge Data Primary Care Provider: Vanna Ceballos Attending Provider: Brayden Ramos Admit Date/Time: 02/11/18 14:34 Discharges patient from system. Discharge Date/Time: 02/14/18 11:15 Quality VTE Deep Vein Thrombosis/Pulmonary Embolism Present on Admission: No
== END 2018-02-14 11:15 | DRG 66 ==
LOC: ED 12:46 → AC 15:07
PROVIDERS: Admitting Provider Internal Medicine; Emergency Provider Emergency Medicine; PCP Physician Assistant; Visit Provider Internal Medicine
DX: I63.89 Other cerebral infarction (principal); R29.810 Facial weakness; R47.1 Dysarthria and anarthria; I10 Essential (primary) hypertension; E78.5 Hyperlipidemia, unspecified; R29.703 NIHSS score 3; I73.9 Peripheral vascular disease, unspecified; Z87.891 Personal history of nicotine dependence
CPT/HCPCS: 36591; 70450; 70496; 70498; 70553; 71045; 80048; 80305; 81001; 82962; 84484; 85025; 85610; 85730; 92523; 92610; 93005; 96365; 96366; 97112; 97116; 97127; 97162; 97165; 97530; 97535; 99285; A9579; J0360; Q9967

== ENCOUNTER 2018-03-03 10:00 | Emergency (ER) | payer MEDICARE, BC, SELFPAY ==
[2018-02-11 15:10] VITALS: BMI 24.5
[2018-03-03 10:02] VITALS: BP 176/76; PULSE 62; RESP 14; TEMP 36.2; O2SAT 95
--- NOTE | 2018-03-03 10:51 | ED_ITS ---
HPI - General Adult General Chief complaint: Hypertension Stated complaint: HIGH BLOODPRESSURE Time Seen by Provider: 03/03/18 10:13 Source: patient and family Mode of arrival: ambulatory Limitations: no limitations History of Present Illness HPI narrative: Patient is a 77-year-old female here for evaluation of hypertension. Patient took her blood pressure this morning and it was elevated. She recently had a stay in a nursing facility after being admitted to the hospital for a CVA. Early anticoagulation is Plavix. While she was in the nursing facility she was taking lisinopril 30 mg 2 times a day. When she was discharged this was changed to 30 mg 1 time a day. She does not know why this happened. She has been taking her medications. She was instructed to take her blood pressure different times during the day which she has been doing. When she took her blood pressure this morning was elevated. Related Data Home Medications Medication Instructions Recorded Confirmed sertraline 50 mg PO QDAY #0 08/06/11 03/03/18 estradiol 0.5 mg PO 2XW #0 10/30/12 03/03/18 oxybutynin chloride 5 mg PO DAILY 02/11/18 03/03/18 lisinopril 30 mg PO DAILY 03/03/18 03/03/18 zolpidem 5 mg PO HS PRN 03/03/18 03/03/18 Previous Rx's Medication Instructions Recorded clopidogrel [Plavix] 75 mg PO DAILY #30 tab 02/14/18 coenzyme Q10 100 mg PO DAILY #30 cap 02/14/18 rosuvastatin [Crestor] 10 mg PO BEDTIME #30 tab 02/14/18 Allergies Allergy/AdvReac Type Severity Reaction Status Date / Time No Known Drug Allergies Allergy Verified 03/03/18 10:09 Review of Systems Constitutional Denies fever(s) and Denies headache(s) ENT Ears, Nose, Mouth, and Throat: Denies vertigo, Denies dizziness and Denies headache(s) Cardiovascular Denies chest pain, Denies palpitations and Denies dyspnea Respiratory Denies dyspnea Gastrointestinal Gastrointestinal: Denies abdominal pain, Denies nausea and Denies vomiting Musculoskeletal Denies myalgias and Denies arthralgias Integumentary/Breasts Denies lesions and Denies rash Neurologic Denies vertigo, Denies dizziness and Denies headache(s) Endocrine Denies palpitations Hematologic/Lymphatic Comments: On Plavix [facility] Medical History Depression (Acute) Dyslipidemia (Acute) H/O: hysterectomy (Acute) Peripheral arterial disease (Acute) COPD (chronic obstructive pulmonary disease) (Chronic) History of hypertension (Inactive) Surgical History No pertinent past surgical history (Acute) Social History household members: none lives independently: Yes Smoking Status: Former smoker alcohol intake: never Exam Initial Vital Signs Initial Vital Signs: Vital Signs Temperature 97.2 F L 03/03/18 10:02 Pulse Rate 62 03/03/18 10:02 Respiratory Rate 14 03/03/18 10:02 Blood Pressure 176/76 H 03/03/18 10:02 Pulse Oximetry 95 03/03/18 10:02 Const General: cooperative, healthy appearing, comfortable, well developed, well groomed and No acute distress Orientation: alert, awake and oriented x3 HENMT Head: normal to inspection and normocephalic Resp Effort & Inspection: normal respiratory effort Auscultation: clear to auscultation bilaterally Cardio Rate: regular rate Rhythm: regular rhythm Pulses: radial pulses present Skin Lesions: no lesions Rashes: no rashes Neuro General: alert, awake and oriented x3 Cognition: normal cognition Extrem General: normal to inspection, capillary refill normal and No edema Psych Appearance: grossly normal and well kempt Course Orders Ordered: ED Orders 03/03/18 10:13 EKG-12 Lead Stat Vital Signs - 8 hr 03/03/18 10:02 03/03/18 11:15 Temperature 97.2 F L Pulse Rate 62 79 Respiratory Rate 14 12 Blood Pressure 176/76 H Blood Pressure [Right Arm] 174/76 H Pulse Oximetry 95 Medical Decision Making ECG Data Attestation: I personally reviewed and interpreted this ECG as follows: Prior ECG tracings: not available for review Interpretation: Sinus rhythm First degree AV block Ventricular rate is [address] T wave changes Normal QTC MDM Narrative Medical decision making narrative: Patient is hypertensive however shows no signs of end-organ dysfunction. Blood pressure here in the emergency department improved from which she had at home. Patient is asymptomatic. EKG shows no signs of ischemia. Patient is clinically not in heart failure. No signs of CVA. Her long discussion with the patient and her family who are bedside regarding her symptoms. We did discuss asymptomatic hypertension. Did discuss the importance of checking her blood pressure at home and taking her medications as directed. She is going to call her primary care doctor for follow-up. She was given return precautions. She expressed understanding and agreement with plan. Discharge Plan Departure Patient Disposition: Home Clinical Impression: Hypertension Discharge Date/Time: 03/03/18 11:36 Interventions: ED Discharge Assessment Last Done: 03/03/18 11:35 Activity Restrictions/Additional Instructions: recommend you continue to take your blood pressure like we discussed. Continue all of your medications as directed. keep your scheduled medical appointments. Return to the emergency department for any new or worsening symptoms Prescriptions: No Action sertraline 50 MG tablet 50 mg PO QDAY Qty: 0 RF: 0 estradiol 0.5 MG tablet 0.5 mg PO 2XW Qty: 0 RF: 0 oxybutynin chloride 5 mg tablet extended release 24hr 5 mg PO DAILY RF: 0 clopidogrel [Plavix] 75 mg Tablet 75 mg PO DAILY Qty: 30 RF: 0 rosuvastatin [Crestor] 10 mg Tablet 10 mg PO BEDTIME Qty: 30 RF: 0 coenzyme Q10 100 mg capsule 100 mg PO DAILY Qty: 30 RF: 0 lisinopril 10 mg tablet 30 mg PO DAILY RF: 0 zolpidem 5 MG tablet 5 mg PO HS PRN (Reason: Insomnia) RF: 0
[2018-03-03 11:15] VITALS: BP 174/76; PULSE 79; RESP 12
--- NOTE | 2018-03-03 11:34 | PC.NURSE ---
Patient pain free, denies any associated symptoms to elevated blood pressure. Sent here from walkin clinic for elevated BP at home after missing dose of evening medication. Patient has no complaints at this time.
== END 2018-03-03 11:36 | disposition home or self-care (01) ==
PROVIDERS: Emergency Provider Emergency Medicine; PCP Physician Assistant
DX: I10 Essential (primary) hypertension (principal)
CPT/HCPCS: 93005; 99282; 99283

== ENCOUNTER 2018-07-21 13:45 | Outpatient (RCR) | payer MEDICARE, BC, SELFPAY ==
[2018-02-11 15:10] VITALS: BMI 24.5
--- NOTE | 2018-04-26 15:49 | PT.OIE ---
Current Diagnoses Cerebral infarction, unspecified (04/26/18) Weakness (04/26/18) Past Medical History (Last Updated 02/11/18 @ 17:27 by Brayden Ramos MD) Depression (Acute) Dyslipidemia (Acute) H/O: hysterectomy (Acute) Peripheral arterial disease (Acute) COPD (chronic obstructive pulmonary disease) (Chronic) History of hypertension (Inactive) Past Surgical History (Last Updated 03/04/18 @ 07:20 by Navjot Jeffries DO) No pertinent past surgical history (Acute) Provider Visit Care Team Role Provider Type Vanna Ceballos PA-C Attending Provider Advanced Golf Course Equipment Operator Primary Care Provider Specialty: Internal Medicine Address: [address] [place] [address], [facility] Email: Physical Therapy Initial Evaluation PT-OP-A Visit Information Start: 04/25/18 16:04 Freq: Status: Active Protocol: Document 04/26/18 09:01 [facility] (Rec: 04/26/18 09:48 [facility] [id number]) Out-Patient Physical Therapy Visit Information Visit Information Visit Type Initial Evaluation Visit Start Time 09:00 Visit Stop Time 09:45 Total Visit Minutes 45 Visit Number 1 Number of TECHNICAL ADVISOR Visits 0 PT-OP-B Current Condition Start: 04/25/18 16:04 Freq: Status: Active Protocol: Document 04/26/18 09:01 [facility] (Rec: 04/26/18 09:48 [facility] [id number]) Current Condition History of Current Condition Onset Date 02/10/18 Current Complaints R sided weakness History of Current Condition Pt reports she had a CVA on which resulted in weakness on R side and dec balance. Pt had HH until recently and they said she wouldn't need OT. Pt had a trip for the past month so she hasn't been doing any therapy . Pt reports some speech issues since the stroke. Pt is typically out and about with visiting with friends and playing games. 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 Pt reports no falls but reports she has had 2 times where she went down low to get something and had difficulty getting up . Pt lives alone in a large house. Pt reports she was bumping into the wall at first but isn't having that issue anymore. Pt reports occasional catching of R ankle that happened also prior to stroke. Pt reports she started driving just recently. Her kids set up a course for her to try to check her driving. Treatment Goals Patient/Caregiver Goals inc ease with getting up/down from ground; get the strength back in her body, be able to write and paint PT-OP-D Balance Start: 04/25/18 16:04 Freq: Status: Active Protocol: Document 04/26/18 09:01 [facility] (Rec: 04/26/18 09:48 [facility] [id number]) Balance Tests Figueredo Balance Test Figueredo Balance Test Score 50 Figueredo Impairment Rating 1 to 19% Impaired (Score 45-55 ) PT-OP-E Functional Tests Start: 04/26/18 09:48 Freq: Status: Active Protocol: Document 04/26/18 09:01 [facility] (Rec: 04/26/18 09:48 [facility] [id number]) Functional Tests Functional Gait Assessment Score 17 Functional Gait Assessment Impairment 40 to <60% Impaired (Score 13- Rating 18) PT-OP-M Strength Start: 04/25/18 16:04 Freq: Status: Active Protocol: Document 04/26/18 09:01 [facility] (Rec: 04/26/18 09:48 [facility] [id number]) Hip Strength Hip Manual Muscle Testing Right Flexion (L2) 3+ Fair+ Extension (S1) 3+ Fair+ Abduction 3+ Fair+ External Rotation 3+ Fair+ Internal Rotation 4- Good- Left Flexion (L2) 4 Good Extension (S1) 3+ Fair+ Abduction 4- Good- External Rotation 4 Good Internal Rotation 4 Good Knee Strength Knee Manual Muscle Testing Right Flexion (S2) 4 Good Extension (L3) 4 Good Left Flexion (S2) 4+ Good+ Extension (L3) 4+ Good+ Ankle/Foot Strength Ankle and Foot Manual Muscle Testing Right Dorsiflexion (L4) 4 Good Plantarflexion (S1) 4 Good Left Dorsiflexion (L4) 4+ Good+ Plantarflexion (S1) 4+ Good+ Comments seated testing PT-OP-Q Treatments Start: 04/25/18 16:04 Freq: Status: Active Protocol: Document 04/26/18 09:01 [facility] (Rec: 04/26/18 09:48 [facility] [id number]) Therapeutic Exercises Supine Exercises hip flex isometric Supine Exercise Name B hand to knees press Reps/Minutes 10 sec hold x2 hip abd Supine Exercise Name hip abd Side bilateral Equipment Used Lvl 3 Reps/Minutes 10 bridge Supine Exercise Name bridge neutral Side bilateral Reps/Minutes 10 Sidelying Exercises hip abd Sidelying Exercise Name hip abd Side bilateral Reps/Minutes 10 PT-OP-T Assessment and Plan Start: 04/25/18 16:04 Freq: Status: Active Protocol: Document 04/26/18 09:01 [facility] (Rec: 04/26/18 15:49 [facility] [id number]) Physical Therapy Assessment Rehab Potential Rehabilitation Potential Good Evaluation Complexity Number of Personal Factors/Comorbidities 3 or More Number of Body Systems Impaired 4 or More Clinical Presentation at Evaluation Stable Impairments Impairments Activity Tolerance Balance Functional Activities Functional Mobility Gait Pain Posture Soft Tissue Mobility Strength Goals functional ability Impairment Dec ability to get up/down from ground Usp Goal (LTG) Pt will be able to get up/down from ground independently and safely. LTG Duration 06/24/18 strength Short Term Goal (STG) Pt will be indep with HEP STG Duration 05/27/18 [employer] Testing Supervisor Goal (LTG) Pt will have 4+/5 strength, allowing her to have greater ease with daily tasks. LTG Duration 06/24/18 balance Short Term Goal (STG) Pt will score 21/30 on FGA STG Duration 05/27/18 [employer] Testing Supervisor Goal (LTG) Pt will score >26/30 on FGA demonstrating dec risk for falls. LTG Duration 06/24/18 Assessment Summary Assessment Pt is s/p CVA affected R side and has overall dec balance, which pt tries to compensate for by slowing down. She has overall LE weakness L>R. Pt would benefit from skilled PT to improve strength and balance in order to improve safety. Physical Therapy Plan Frequency and Duration Frequency of Treatment 2x/Week Duration of Treatment 2 months Plan of Care Start Date 04/26/18 Plan of Care End Date 06/24/18 Therapeutic Interventions Therapeutic Interventions Aquatic Therapy Balance Training Coordination Training Gait Training Home Exercise Program Manual Therapy Neuromuscular Re-education Patient/Caregiver Education Self-Care/Home Management Taping Therapeutic Activities Therapeutic Exercises Modalities Cold Pack/Ice Massage Hot Packs Next Visit Focus/Plan Next Note Type Treatment Note Next Visit Plan Seated stepper, leg press, balance board, standing balance exercises
--- NOTE | 2018-04-26 15:49 | PT.OPPOC ---
Current Diagnoses Cerebral infarction, unspecified (04/26/18) Weakness (04/26/18) Provider Visit Care Team Role Provider Type Vanna Ceballos PA-C Attending Provider Advanced Pencil Maker Primary Care Provider Specialty: Internal Medicine Address: [address] [place] [address], [id number] Email: Plan Of Care PT-OP-T Assessment and Plan Start: 04/25/18 16:04 Freq: Status: Active Protocol: Document 04/26/18 09:01 [facility] (Rec: 04/26/18 15:49 [facility] [id number]) Physical Therapy Assessment Rehab Potential Rehabilitation Potential Good Evaluation Complexity Number of Personal Factors/Comorbidities 3 or More Number of Body Systems Impaired 4 or More Clinical Presentation at Evaluation Stable Impairments Impairments Activity Tolerance Balance Functional Activities Functional Mobility Gait Pain Posture Soft Tissue Mobility Strength Goals functional ability Impairment Dec ability to get up/down from ground Charge Master Coordinator Goal (LTG) Pt will be able to get up/down from ground independently and safely. LTG Duration 06/24/18 strength Short Term Goal (STG) Pt will be indep with HEP STG Duration 05/27/18 Jail Goal (LTG) Pt will have 4+/5 strength, allowing her to have greater ease with daily tasks. LTG Duration 06/24/18 balance Short Term Goal (STG) Pt will score 21/30 on FGA STG Duration 05/27/18 Charge Master Coordinator Goal (LTG) Pt will score >26/30 on FGA demonstrating dec risk for falls. LTG Duration 06/24/18 Assessment Summary Assessment Pt is s/p CVA affected R side and has overall dec balance, which pt tries to compensate for by slowing down. She has overall LE weakness L>R. Pt would benefit from skilled PT to improve strength and balance in order to improve safety. Physical Therapy Plan Frequency and Duration Frequency of Treatment 2x/Week Duration of Treatment 2 months Plan of Care Start Date 04/26/18 Plan of Care End Date 06/24/18 Therapeutic Interventions Therapeutic Interventions Aquatic Therapy Balance Training Coordination Training Gait Training Home Exercise Program Manual Therapy Neuromuscular Re-education Patient/Caregiver Education Self-Care/Home Management Taping Therapeutic Activities Therapeutic Exercises Modalities Cold Pack/Ice Massage Hot Packs Next Visit Focus/Plan Next Note Type Treatment Note Next Visit Plan Seated stepper, leg press, balance board, standing balance exercises Plan of Care Dates Plan of Care Start Date 04/26/18 Plan of Care End Date 06/24/18 Please Sign and Return: I have reviewed this Plan of Care and certify that the skilled therapy services above are required to meet the patient?s needs. Physician Signature Date Printed Name and Credentials Clinical Instructor Signature Printed Name and Credentials
--- NOTE | 2018-05-01 11:13 | PT.OTN ---
Current Diagnoses Cerebral infarction, unspecified (05/01/18) Physical Therapy Treatment Note PT-OP-A Visit Information Start: 04/25/18 16:04 Freq: Status: Active Protocol: Document 05/01/18 10:38 [facility] (Rec: 05/01/18 11:13 [facility] [id number]) Out-Patient Physical Therapy Visit Information Visit Information Visit Type Treatment Note Visit Start Time 10:32 Visit Stop Time 11:10 Total Visit Minutes 38 Visit Number 2 Number of PATTERN MAKER PROGRAMER Visits 0 PT-OP-B Current Condition Start: 04/25/18 16:04 Freq: Status: Active Protocol: Document 04/26/18 09:01 [facility] (Rec: 04/26/18 09:48 [facility] [id number]) Current Condition History of Current Condition Onset Date 02/10/18 Current Complaints R sided weakness History of Current Condition Pt reports she had a CVA on which resulted in weakness on R side and dec balance. Pt had HH until recently and they said she wouldn't need OT. Pt had a trip for the past month so she hasn't been doing any therapy . Pt reports some speech issues since the stroke. Pt is typically out and about with visiting with friends and playing games. 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 Pt reports no falls but reports she has had 2 times where she went down low to get something and had difficulty getting up . Pt lives alone in a large house. Pt reports she was bumping into the wall at first but isn't having that issue anymore. Pt reports occasional catching of R ankle that happened also prior to stroke. Pt reports she started driving just recently. Her kids set up a course for her to try to check her driving. Treatment Goals Patient/Caregiver Goals inc ease with getting up/down from ground; get the strength back in her body, be able to write and paint PT-OP-C Subjective Start: 04/25/18 16:04 Freq: Status: Active Protocol: Document 05/01/18 10:38 [facility] (Rec: 05/01/18 11:13 [facility] [id number]) OP-PT Subjective Patient Comments Patient Comments Pt reports she has done her exercises most days. Reports the sidelying exercise hurt her hip. PT-OP-D Balance Start: 04/25/18 16:04 Freq: Status: Active Protocol: Document 04/26/18 09:01 [facility] (Rec: 04/26/18 09:48 [facility] [id number]) Balance Tests Figueredo Balance Test Figueredo Balance Test Score 50 Figueredo Impairment Rating 1 to 19% Impaired (Score 45-55 ) PT-OP-E Functional Tests Start: 04/26/18 09:48 Freq: Status: Active Protocol: Document 04/26/18 09:01 [facility] (Rec: 04/26/18 09:48 [facility] [id number]) Functional Tests Functional Gait Assessment Score 17 Functional Gait Assessment Impairment 40 to <60% Impaired (Score 13- Rating 18) PT-OP-M Strength Start: 04/25/18 16:04 Freq: Status: Active Protocol: Document 04/26/18 09:01 [facility] (Rec: 04/26/18 09:48 [facility] [id number]) Hip Strength Hip Manual Muscle Testing Right Flexion (L2) 3+ Fair+ Extension (S1) 3+ Fair+ Abduction 3+ Fair+ External Rotation 3+ Fair+ Internal Rotation 4- Good- Left Flexion (L2) 4 Good Extension (S1) 3+ Fair+ Abduction 4- Good- External Rotation 4 Good Internal Rotation 4 Good Knee Strength Knee Manual Muscle Testing Right Flexion (S2) 4 Good Extension (L3) 4 Good Left Flexion (S2) 4+ Good+ Extension (L3) 4+ Good+ Ankle/Foot Strength Ankle and Foot Manual Muscle Testing Right Dorsiflexion (L4) 4 Good Plantarflexion (S1) 4 Good Left Dorsiflexion (L4) 4+ Good+ Plantarflexion (S1) 4+ Good+ Comments seated testing PT-OP-Q Treatments Start: 04/25/18 16:04 Freq: Status: Active Protocol: Document 05/01/18 10:38 [facility] (Rec: 05/01/18 11:13 [facility] [id number]) Cardio Equipment Recumbent Elliptical (Biodex) Duration (Minutes) 6 Resistance 4 Seat Position 6 Gym Equipment Shuttle Recovery Bilateral Heel Raises Resistance 37 Shuttle Recovery Platform Stable Reps/Time 30 Bilateral Squats Resistance 75 Shuttle Recovery Platform Stable Reps/Time 30 Shuttle Balance blue clips Details fwd: WBOS & NBOS & staggered stance; Side WBOS &NBOS Therapeutic Exercises Supine Exercises hip flex isometric Supine Exercise Name B hand to knees press Reps/Minutes 10 sec hold x2 hip abd Supine Exercise Name hip abd Side bilateral Equipment Used Lvl 3 Reps/Minutes 10 bridge Supine Exercise Name bridge neutral Side bilateral Reps/Minutes 10 Sidelying Exercises hip abd Sidelying Exercise Name hip abd Side bilateral Reps/Minutes 10 Standing Exercises fwd/back Standing Exercise Name resisted Equipment Used yellow band Reps/Minutes 20ft sidestep Standing Exercise Name sidestep Resistance yellow band Reps/Minutes 20ft Neuro Re-Education Treatment Balance Activities hurdles Details hurdles close Reps/Duration 6 laps tandem walking Details tandem walking Reps/Duration 2x20ft backwards walk Details backwards w/large steps fast Reps/Duration 2x20ft marching fwd Details fwd march Reps/Duration 2x20ft fwd/back EC Details fwd/back walk EC fast Reps/Duration 2x20ft PT-OP-T Assessment and Plan Start: 04/25/18 16:04 Freq: Status: Active Protocol: Document 05/01/18 10:38 [facility] (Rec: 05/01/18 11:13 [facility] [id number]) Physical Therapy Assessment Goals functional ability Impairment Dec ability to get up/down from ground Prison Goal (LTG) Pt will be able to get up/down from ground independently and safely. LTG Duration 06/24/18 strength Short Term Goal (STG) Pt will be indep with HEP STG Duration 05/27/18 Cow Tester Goal (LTG) Pt will have 4+/5 strength, allowing her to have greater ease with daily tasks. LTG Duration 06/24/18 balance Short Term Goal (STG) Pt will score 21/30 on FGA STG Duration 05/27/18 Prison Goal (LTG) Pt will score >26/30 on FGA demonstrating dec risk for falls. LTG Duration 06/24/18 Assessment Summary Assessment pt had significant challenge with unstable surface of balance board and required time to gain balance. She was able to do s/l abd w/o pain when cued. Physical Therapy Plan Frequency and Duration Frequency of Treatment 2x/Week Duration of Treatment 2 months Plan of Care Start Date 04/26/18 Plan of Care End Date 06/24/18 Next Visit Focus/Plan Next Note Type Treatment Note Next Visit Plan Advance balance
--- NOTE | 2018-05-04 10:36 | PT.OTN ---
Current Diagnoses Cerebral infarction, unspecified (05/04/18) Physical Therapy Treatment Note PT-OP-A Visit Information Start: 04/25/18 16:04 Freq: Status: Active Protocol: Document 05/04/18 08:14 [facility] (Rec: 05/04/18 10:36 [facility] [id number]) Out-Patient Physical Therapy Visit Information Visit Information Visit Type Treatment Note Visit Start Time 08:15 Visit Stop Time 08:55 Total Visit Minutes 40 Visit Number 3 Number of GARNETT ROOM WORKER Visits 0 PT-OP-B Current Condition Start: 04/25/18 16:04 Freq: Status: Active Protocol: Document 04/26/18 09:01 [facility] (Rec: 04/26/18 09:48 [facility] [id number]) Current Condition History of Current Condition Onset Date 02/10/18 Current Complaints R sided weakness History of Current Condition Pt reports she had a CVA on which resulted in weakness on R side and dec balance. Pt had HH until recently and they said she wouldn't need OT. Pt had a trip for the past month so she hasn't been doing any therapy . Pt reports some speech issues since the stroke. Pt is typically out and about with visiting with friends and playing games. 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 Pt reports no falls but reports she has had 2 times where she went down low to get something and had difficulty getting up . Pt lives alone in a large house. Pt reports she was bumping into the wall at first but isn't having that issue anymore. Pt reports occasional catching of R ankle that happened also prior to stroke. Pt reports she started driving just recently. Her kids set up a course for her to try to check her driving. Treatment Goals Patient/Caregiver Goals inc ease with getting up/down from ground; get the strength back in her body, be able to write and paint PT-OP-C Subjective Start: 04/25/18 16:04 Freq: Status: Active Protocol: Document 05/04/18 08:14 [facility] (Rec: 05/04/18 10:36 [facility] [id number]) OP-PT Subjective Patient Comments Patient Comments Pt reports she had pain at night in her entire body and had trouble sleeping. Most notable was left arm. No other symptoms at the time and she notes she finally fell asleep and feels fine this AM. PT-OP-D Balance Start: 04/25/18 16:04 Freq: Status: Active Protocol: Document 04/26/18 09:01 [facility] (Rec: 04/26/18 09:48 [facility] [id number]) Balance Tests Figueredo Balance Test Figueredo Balance Test Score 50 Figueredo Impairment Rating 1 to 19% Impaired (Score 45-55 ) PT-OP-E Functional Tests Start: 04/26/18 09:48 Freq: Status: Active Protocol: Document 04/26/18 09:01 [facility] (Rec: 04/26/18 09:48 [facility] [id number]) Functional Tests Functional Gait Assessment Score 17 Functional Gait Assessment Impairment 40 to <60% Impaired (Score 13- Rating 18) PT-OP-M Strength Start: 04/25/18 16:04 Freq: Status: Active Protocol: Document 04/26/18 09:01 [facility] (Rec: 04/26/18 09:48 [facility] [id number]) Hip Strength Hip Manual Muscle Testing Right Flexion (L2) 3+ Fair+ Extension (S1) 3+ Fair+ Abduction 3+ Fair+ External Rotation 3+ Fair+ Internal Rotation 4- Good- Left Flexion (L2) 4 Good Extension (S1) 3+ Fair+ Abduction 4- Good- External Rotation 4 Good Internal Rotation 4 Good Knee Strength Knee Manual Muscle Testing Right Flexion (S2) 4 Good Extension (L3) 4 Good Left Flexion (S2) 4+ Good+ Extension (L3) 4+ Good+ Ankle/Foot Strength Ankle and Foot Manual Muscle Testing Right Dorsiflexion (L4) 4 Good Plantarflexion (S1) 4 Good Left Dorsiflexion (L4) 4+ Good+ Plantarflexion (S1) 4+ Good+ Comments seated testing PT-OP-Q Treatments Start: 04/25/18 16:04 Freq: Status: Active Protocol: Document 05/04/18 08:14 [facility] (Rec: 05/04/18 10:36 [facility] [id number]) Cardio Equipment Recumbent Elliptical (Biodex) Duration (Minutes) 6 Resistance 4 Seat Position 6 Gym Equipment Shuttle Recovery Bilateral Heel Raises Resistance 37 Shuttle Recovery Platform Stable Reps/Time 30 Bilateral Squats Resistance 75 Shuttle Recovery Platform Stable Reps/Time 30 Shuttle Balance blue clips Details fwd: WBOS & NBOS & staggered stance; Side WBOS &NBOS Therapeutic Exercises Standing Exercises sit<>stand Standing Exercise Name STS Reps/Minutes 10 no arms fwd/back Standing Exercise Name resisted Equipment Used yellow band Reps/Minutes 20ft sidestep Standing Exercise Name sidestep Resistance yellow band Reps/Minutes 20ft Neuro Re-Education Treatment Balance Activities dynadisc Details black:NBOS & staggered stance Comments w/head turns hurdles Details hurdles Comments closex6; 2 apart x6 tandem walking Details tandem walking Reps/Duration 4x20ft fwd/back EC Details fwd/back walk EC fast Reps/Duration 2x20ft PT-OP-T Assessment and Plan Start: 04/25/18 16:04 Freq: Status: Active Protocol: Document 05/04/18 08:14 [facility] (Rec: 05/04/18 10:36 [facility] [id number]) Physical Therapy Assessment Goals functional ability Impairment Dec ability to get up/down from ground Manager Solar Goal (LTG) Pt will be able to get up/down from ground independently and safely. LTG Duration 06/24/18 strength Short Term Goal (STG) Pt will be indep with HEP STG Duration 05/27/18 Custodial Goal (LTG) Pt will have 4+/5 strength, allowing her to have greater ease with daily tasks. LTG Duration 06/24/18 balance Short Term Goal (STG) Pt will score 21/30 on FGA STG Duration 05/27/18 Manager Solar Goal (LTG) Pt will score >26/30 on FGA demonstrating dec risk for falls. LTG Duration 06/24/18 Assessment Summary Assessment Pt able to tolerate unstable surfaces better today. EC cont to create difficulty with balance for pt but she had greater ease with balance exercises today. Physical Therapy Plan Frequency and Duration Frequency of Treatment 2x/Week Duration of Treatment 2 months Plan of Care Start Date 04/26/18 Plan of Care End Date 06/24/18 Next Visit Focus/Plan Next Note Type Treatment Note Next Visit Plan Progress LE strength & overall balance with uneven surfaces
--- NOTE | 2018-05-09 14:25 | PT.OTN ---
Current Diagnoses Cerebral infarction, unspecified (05/09/18) Physical Therapy Treatment Note PT-OP-A Visit Information Start: 04/25/18 16:04 Freq: Status: Active Protocol: Document 05/09/18 13:45 [facility] (Rec: 05/09/18 14:25 [facility] [id number]) Out-Patient Physical Therapy Visit Information Visit Information Visit Type Treatment Note Visit Start Time 13:45 Visit Stop Time 14:25 Total Visit Minutes 40 Visit Number 4 Number of SENIOR SOFTWARE ENGINEER ANALYTICS Visits 0 PT-OP-B Current Condition Start: 04/25/18 16:04 Freq: Status: Active Protocol: Document 04/26/18 09:01 [facility] (Rec: 04/26/18 09:48 [facility] [id number]) Current Condition History of Current Condition Onset Date 02/10/18 Current Complaints R sided weakness History of Current Condition Pt reports she had a CVA on which resulted in weakness on R side and dec balance. Pt had HH until recently and they said she wouldn't need OT. Pt had a trip for the past month so she hasn't been doing any therapy . Pt reports some speech issues since the stroke. Pt is typically out and about with visiting with friends and playing games. 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 Pt reports no falls but reports she has had 2 times where she went down low to get something and had difficulty getting up . Pt lives alone in a large house. Pt reports she was bumping into the wall at first but isn't having that issue anymore. Pt reports occasional catching of R ankle that happened also prior to stroke. Pt reports she started driving just recently. Her kids set up a course for her to try to check her driving. Treatment Goals Patient/Caregiver Goals inc ease with getting up/down from ground; get the strength back in her body, be able to write and paint PT-OP-C Subjective Start: 04/25/18 16:04 Freq: Status: Active Protocol: Document 05/09/18 13:45 [facility] (Rec: 05/09/18 14:25 [facility] [id number]) OP-PT Subjective Patient Comments Patient Comments Pt reports she is doing well today. PT-OP-D Balance Start: 04/25/18 16:04 Freq: Status: Active Protocol: Document 04/26/18 09:01 [facility] (Rec: 04/26/18 09:48 [facility] [id number]) Balance Tests Figueredo Balance Test Figueredo Balance Test Score 50 Figueredo Impairment Rating 1 to 19% Impaired (Score 45-55 ) PT-OP-E Functional Tests Start: 04/26/18 09:48 Freq: Status: Active Protocol: Document 04/26/18 09:01 [facility] (Rec: 04/26/18 09:48 [facility] [id number]) Functional Tests Functional Gait Assessment Score 17 Functional Gait Assessment Impairment 40 to <60% Impaired (Score 13- Rating 18) PT-OP-M Strength Start: 04/25/18 16:04 Freq: Status: Active Protocol: Document 04/26/18 09:01 [facility] (Rec: 04/26/18 09:48 [facility] [id number]) Hip Strength Hip Manual Muscle Testing Right Flexion (L2) 3+ Fair+ Extension (S1) 3+ Fair+ Abduction 3+ Fair+ External Rotation 3+ Fair+ Internal Rotation 4- Good- Left Flexion (L2) 4 Good Extension (S1) 3+ Fair+ Abduction 4- Good- External Rotation 4 Good Internal Rotation 4 Good Knee Strength Knee Manual Muscle Testing Right Flexion (S2) 4 Good Extension (L3) 4 Good Left Flexion (S2) 4+ Good+ Extension (L3) 4+ Good+ Ankle/Foot Strength Ankle and Foot Manual Muscle Testing Right Dorsiflexion (L4) 4 Good Plantarflexion (S1) 4 Good Left Dorsiflexion (L4) 4+ Good+ Plantarflexion (S1) 4+ Good+ Comments seated testing PT-OP-Q Treatments Start: 04/25/18 16:04 Freq: Status: Active Protocol: Document 05/09/18 13:45 [facility] (Rec: 05/09/18 14:25 [facility] [id number]) Cardio Equipment Recumbent Elliptical (Biodex) Duration (Minutes) 6 Resistance 4 Seat Position 6 Gym Equipment Shuttle Recovery Bilateral Heel Raises Resistance 37 Shuttle Recovery Platform Stable Reps/Time 2x15 Bilateral Squats Resistance 87 Shuttle Recovery Platform Stable Reps/Time 2x15 Shuttle Balance red clips Details fwd: NBOS, WBOS & staggered stance; side: WBOS & NBOS Therapeutic Exercises Standing Exercises fwd/back Standing Exercise Name resisted Equipment Used green band Reps/Minutes 20ftx2 sidestep Standing Exercise Name sidestep Resistance green band Reps/Minutes 20ft Neuro Re-Education Treatment Balance Activities head turns Details walking w/vertical & horizontal head turns Reps/Duration 6x 20ft dynadisc Details dynadiscs WBOS and staggered stance B Comments also NBOS on one hurdles Details hurdles Reps/Duration 6 Comments theradiscs btwn tandem walking Details tandem walking Reps/Duration 4x20ft fwd/back EC Details fwd/back walk EC fast Reps/Duration 2x20ft PT-OP-T Assessment and Plan Start: 04/25/18 16:04 Freq: Status: Active Protocol: Document 05/09/18 13:45 [facility] (Rec: 05/09/18 14:25 [facility] [id number]) Physical Therapy Assessment Goals functional ability Impairment Dec ability to get up/down from ground Retirement Goal (LTG) Pt will be able to get up/down from ground independently and safely. LTG Duration 06/24/18 strength Short Term Goal (STG) Pt will be indep with HEP STG Duration 05/27/18 Skilled Helper Goal (LTG) Pt will have 4+/5 strength, allowing her to have greater ease with daily tasks. LTG Duration 06/24/18 balance Short Term Goal (STG) Pt will score 21/30 on FGA STG Duration 05/27/18 Skilled Helper Goal (LTG) Pt will score >26/30 on FGA demonstrating dec risk for falls. LTG Duration 06/24/18 Assessment Summary Assessment Pt able to tolerate increased resistance with exercises today and inc difficulty with balance surfaces. She cont to advance Physical Therapy Plan Frequency and Duration Frequency of Treatment 2x/Week Duration of Treatment 2 months Plan of Care Start Date 04/26/18 Plan of Care End Date 06/24/18 Next Visit Focus/Plan Next Note Type Treatment Note Next Visit Plan Advance balance
--- NOTE | 2018-05-15 11:16 | PT.OTN ---
Current Diagnoses Cerebral infarction, unspecified (05/15/18) Physical Therapy Treatment Note PT-OP-A Visit Information Start: 04/25/18 16:04 Freq: Status: Active Protocol: Document 05/15/18 10:28 [facility] (Rec: 05/15/18 11:15 [facility] [id number]) Out-Patient Physical Therapy Visit Information Visit Information Visit Type Treatment Note Visit Start Time 10:35 Visit Stop Time 11:15 Total Visit Minutes 40 Visit Number 5 Number of DEVOPS ARCHITECT Visits 0 PT-OP-B Current Condition Start: 04/25/18 16:04 Freq: Status: Active Protocol: Document 04/26/18 09:01 [facility] (Rec: 04/26/18 09:48 [facility] [id number]) Current Condition History of Current Condition Onset Date 02/10/18 Current Complaints R sided weakness History of Current Condition Pt reports she had a CVA on which resulted in weakness on R side and dec balance. Pt had HH until recently and they said she wouldn't need OT. Pt had a trip for the past month so she hasn't been doing any therapy . Pt reports some speech issues since the stroke. Pt is typically out and about with visiting with friends and playing games. 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 Pt reports no falls but reports she has had 2 times where she went down low to get something and had difficulty getting up . Pt lives alone in a large house. Pt reports she was bumping into the wall at first but isn't having that issue anymore. Pt reports occasional catching of R ankle that happened also prior to stroke. Pt reports she started driving just recently. Her kids set up a course for her to try to check her driving. Treatment Goals Patient/Caregiver Goals inc ease with getting up/down from ground; get the strength back in her body, be able to write and paint PT-OP-C Subjective Start: 04/25/18 16:04 Freq: Status: Active Protocol: Document 05/15/18 10:28 [facility] (Rec: 05/15/18 11:15 [facility] [id number]) OP-PT Subjective Patient Comments Patient Comments Reports feeling a little wobbly today. PT-OP-D Balance Start: 04/25/18 16:04 Freq: Status: Active Protocol: Document 04/26/18 09:01 [facility] (Rec: 04/26/18 09:48 [facility] [id number]) Balance Tests Figueredo Balance Test Figueredo Balance Test Score 50 Figueredo Impairment Rating 1 to 19% Impaired (Score 45-55 ) PT-OP-E Functional Tests Start: 04/26/18 09:48 Freq: Status: Active Protocol: Document 04/26/18 09:01 [facility] (Rec: 04/26/18 09:48 [facility] [id number]) Functional Tests Functional Gait Assessment Score 17 Functional Gait Assessment Impairment 40 to <60% Impaired (Score 13- Rating 18) PT-OP-M Strength Start: 04/25/18 16:04 Freq: Status: Active Protocol: Document 04/26/18 09:01 [facility] (Rec: 04/26/18 09:48 [facility] [id number]) Hip Strength Hip Manual Muscle Testing Right Flexion (L2) 3+ Fair+ Extension (S1) 3+ Fair+ Abduction 3+ Fair+ External Rotation 3+ Fair+ Internal Rotation 4- Good- Left Flexion (L2) 4 Good Extension (S1) 3+ Fair+ Abduction 4- Good- External Rotation 4 Good Internal Rotation 4 Good Knee Strength Knee Manual Muscle Testing Right Flexion (S2) 4 Good Extension (L3) 4 Good Left Flexion (S2) 4+ Good+ Extension (L3) 4+ Good+ Ankle/Foot Strength Ankle and Foot Manual Muscle Testing Right Dorsiflexion (L4) 4 Good Plantarflexion (S1) 4 Good Left Dorsiflexion (L4) 4+ Good+ Plantarflexion (S1) 4+ Good+ Comments seated testing PT-OP-Q Treatments Start: 04/25/18 16:04 Freq: Status: Active Protocol: Document 05/15/18 10:28 [facility] (Rec: 05/15/18 11:15 [facility] [id number]) Cardio Equipment Recumbent Elliptical (Biodex) Duration (Minutes) 6 Resistance 4 Seat Position 6 Gym Equipment Shuttle Recovery Bilateral Heel Raises Resistance 37 Shuttle Recovery Platform Stable Reps/Time 2x15 Bilateral Squats Resistance 100 Shuttle Recovery Platform Stable Reps/Time 2x15 Shuttle Balance red clips Details fwd: NBOS, WBOS & staggered stance; side: WBOS & NBOS Therapeutic Exercises Standing Exercises fwd/back Standing Exercise Name resisted Equipment Used green band Reps/Minutes 20ftx2 sidestep Standing Exercise Name sidestep Resistance yellow band Reps/Minutes 20ftx2 Neuro Re-Education Treatment Balance Activities tandem stance Details tandem balance Comments w/balloon toss dynadisc Details black:NBOS & staggered stance Comments while tossing balloon hurdles Details hurdles Reps/Duration 8 Comments theradiscs btwn marching fwd Details fwd/back march Reps/Duration 2x20ft Comments w/eyes closed fwd/back EC Details fwd/back walk EC fast Reps/Duration 2x20ft PT-OP-T Assessment and Plan Start: 04/25/18 16:04 Freq: Status: Active Protocol: Document 05/15/18 10:28 [facility] (Rec: 05/15/18 11:15 [facility] [id number]) Physical Therapy Assessment Goals functional ability Impairment Dec ability to get up/down from ground Longterm Goal (LTG) Pt will be able to get up/down from ground independently and safely. LTG Duration 06/24/18 strength Short Term Goal (STG) Pt will be indep with HEP STG Duration 05/27/18 Scale Installer Goal (LTG) Pt will have 4+/5 strength, allowing her to have greater ease with daily tasks. LTG Duration 06/24/18 balance Short Term Goal (STG) Pt will score 21/30 on FGA STG Duration 05/27/18 Scale Installer Goal (LTG) Pt will score >26/30 on FGA demonstrating dec risk for falls. LTG Duration 06/24/18 Assessment Summary Assessment Pt had better performance with balance activities today. She cont to have deviation of path with EC activities but less LOB. Physical Therapy Plan Frequency and Duration Frequency of Treatment 2x/Week Duration of Treatment 2 months Plan of Care Start Date 04/26/18 Plan of Care End Date 06/24/18 Next Visit Focus/Plan Next Note Type Treatment Note Next Visit Plan Advance balance; balloon on balance board.
--- NOTE | 2018-05-17 15:14 | PT.OTN ---
Current Diagnoses Cerebral infarction, unspecified (05/17/18) Physical Therapy Treatment Note PT-OP-A Visit Information Start: 04/25/18 16:04 Freq: Status: Active Protocol: Document 05/17/18 14:38 [facility] (Rec: 05/17/18 15:14 [facility] [id number]) Out-Patient Physical Therapy Visit Information Visit Information Visit Type Treatment Note Visit Start Time 14:30 Visit Stop Time 15:10 Total Visit Minutes 40 Visit Number 6/10 Number of CAFE OPERATOR Visits 0 PT-OP-B Current Condition Start: 04/25/18 16:04 Freq: Status: Active Protocol: Document 04/26/18 09:01 [facility] (Rec: 04/26/18 09:48 [facility] [id number]) Current Condition History of Current Condition Onset Date 02/10/18 Current Complaints R sided weakness History of Current Condition Pt reports she had a CVA on which resulted in weakness on R side and dec balance. Pt had HH until recently and they said she wouldn't need OT. Pt had a trip for the past month so she hasn't been doing any therapy . Pt reports some speech issues since the stroke. Pt is typically out and about with visiting with friends and playing games. 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 Pt reports no falls but reports she has had 2 times where she went down low to get something and had difficulty getting up . Pt lives alone in a large house. Pt reports she was bumping into the wall at first but isn't having that issue anymore. Pt reports occasional catching of R ankle that happened also prior to stroke. Pt reports she started driving just recently. Her kids set up a course for her to try to check her driving. Treatment Goals Patient/Caregiver Goals inc ease with getting up/down from ground; get the strength back in her body, be able to write and paint PT-OP-C Subjective Start: 04/25/18 16:04 Freq: Status: Active Protocol: Document 05/17/18 14:38 [facility] (Rec: 05/17/18 15:14 [facility] [id number]) OP-PT Subjective Patient Comments Patient Comments Pt reports she had a neck ache yesterday so did not do her exercises PT-OP-D Balance Start: 04/25/18 16:04 Freq: Status: Active Protocol: Document 04/26/18 09:01 [facility] (Rec: 04/26/18 09:48 [facility] [id number]) Balance Tests Figueredo Balance Test Figueredo Balance Test Score 50 Figueredo Impairment Rating 1 to 19% Impaired (Score 45-55 ) PT-OP-E Functional Tests Start: 04/26/18 09:48 Freq: Status: Active Protocol: Document 04/26/18 09:01 [facility] (Rec: 04/26/18 09:48 [facility] [id number]) Functional Tests Functional Gait Assessment Score 17 Functional Gait Assessment Impairment 40 to <60% Impaired (Score 13- Rating 18) PT-OP-M Strength Start: 04/25/18 16:04 Freq: Status: Active Protocol: Document 04/26/18 09:01 [facility] (Rec: 04/26/18 09:48 [facility] [id number]) Hip Strength Hip Manual Muscle Testing Right Flexion (L2) 3+ Fair+ Extension (S1) 3+ Fair+ Abduction 3+ Fair+ External Rotation 3+ Fair+ Internal Rotation 4- Good- Left Flexion (L2) 4 Good Extension (S1) 3+ Fair+ Abduction 4- Good- External Rotation 4 Good Internal Rotation 4 Good Knee Strength Knee Manual Muscle Testing Right Flexion (S2) 4 Good Extension (L3) 4 Good Left Flexion (S2) 4+ Good+ Extension (L3) 4+ Good+ Ankle/Foot Strength Ankle and Foot Manual Muscle Testing Right Dorsiflexion (L4) 4 Good Plantarflexion (S1) 4 Good Left Dorsiflexion (L4) 4+ Good+ Plantarflexion (S1) 4+ Good+ Comments seated testing PT-OP-Q Treatments Start: 04/25/18 16:04 Freq: Status: Active Protocol: Document 05/17/18 14:38 [facility] (Rec: 05/17/18 15:14 [facility] [id number]) Cardio Equipment Recumbent Elliptical (Biodex) Duration (Minutes) 6 Resistance 5 Seat Position 5 Gym Equipment Shuttle Recovery Bilateral Heel Raises Resistance 37 Shuttle Recovery Platform Stable Reps/Time 2x15 Bilateral Squats Resistance 100 Shuttle Recovery Platform Stable Reps/Time 2x15 Shuttle Balance red clips Details fwd: NBOS, WBOS & staggered stance; side: WBOS & NBOS Comments w/balloon Therapeutic Exercises Standing Exercises squats Standing Exercise Name at bar Reps/Minutes 2x10 lunges Standing Exercise Name walking Reps/Minutes 4x20ft fwd/back Standing Exercise Name resisted Side bilateral Equipment Used green band Reps/Minutes 20ftx2 sidestep Standing Exercise Name sidestep Side bilateral Resistance green band Reps/Minutes 20ft Neuro Re-Education Treatment Balance Activities dynadisc Details dynadisc yellow Comments EC & head turns hurdles Details hurdles Reps/Duration 8 Comments theradiscs btwn fwd/back EC Details fwd/back walk EC fast Reps/Duration 2x20ft PT-OP-T Assessment and Plan Start: 04/25/18 16:04 Freq: Status: Active Protocol: Document 05/17/18 14:38 [facility] (Rec: 05/17/18 15:14 [facility] [id number]) Physical Therapy Assessment Goals functional ability Impairment Dec ability to get up/down from ground Retirement Goal (LTG) Pt will be able to get up/down from ground independently and safely. LTG Duration 06/24/18 strength Short Term Goal (STG) Pt will be indep with HEP STG Duration 05/27/18 Retirement Goal (LTG) Pt will have 4+/5 strength, allowing her to have greater ease with daily tasks. LTG Duration 06/24/18 balance Short Term Goal (STG) Pt will score 21/30 on FGA STG Duration 05/27/18 Kindergarten Prep Teacher Goal (LTG) Pt will score >26/30 on FGA demonstrating dec risk for falls. LTG Duration 06/24/18 Assessment Summary Assessment Pt was challenged by balloon toss on balance board but with repetition improved control. Physical Therapy Plan Frequency and Duration Frequency of Treatment 2x/Week Duration of Treatment 2 months Plan of Care Start Date 04/26/18 Plan of Care End Date 06/24/18 Next Visit Focus/Plan Next Note Type Treatment Note Next Visit Plan Cont to advance balance tasks & work on up/down from ground
--- NOTE | 2018-05-29 14:26 | PT.OTN ---
Current Diagnoses Cerebral infarction, unspecified (05/29/18) Physical Therapy Treatment Note PT-OP-A Visit Information Start: 04/25/18 16:04 Freq: Status: Active Protocol: Document 05/29/18 13:47 [facility] (Rec: 05/29/18 14:25 [facility] [id number]) Out-Patient Physical Therapy Visit Information Visit Information Visit Type Treatment Note Visit Start Time 13:45 Visit Stop Time 14:25 Total Visit Minutes 40 Visit Number 7/10 Number of ISO COORDINATOR Visits 0 PT-OP-B Current Condition Start: 04/25/18 16:04 Freq: Status: Active Protocol: Document 04/26/18 09:01 [facility] (Rec: 04/26/18 09:48 [facility] [id number]) Current Condition History of Current Condition Onset Date 02/10/18 Current Complaints R sided weakness History of Current Condition Pt reports she had a CVA on which resulted in weakness on R side and dec balance. Pt had HH until recently and they said she wouldn't need OT. Pt had a trip for the past month so she hasn't been doing any therapy . Pt reports some speech issues since the stroke. Pt is typically out and about with visiting with friends and playing games. 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 Pt reports no falls but reports she has had 2 times where she went down low to get something and had difficulty getting up . Pt lives alone in a large house. Pt reports she was bumping into the wall at first but isn't having that issue anymore. Pt reports occasional catching of R ankle that happened also prior to stroke. Pt reports she started driving just recently. Her kids set up a course for her to try to check her driving. Treatment Goals Patient/Caregiver Goals inc ease with getting up/down from ground; get the strength back in her body, be able to write and paint PT-OP-C Subjective Start: 04/25/18 16:04 Freq: Status: Active Protocol: Document 05/29/18 13:47 [facility] (Rec: 05/29/18 14:25 [facility] [id number]) OP-PT Subjective Patient Comments Patient Comments Pt reports she was achey all over so she didn't do her exercises. Unsure if achiness was d/t snow and cold weather. PT-OP-D Balance Start: 04/25/18 16:04 Freq: Status: Active Protocol: Document 04/26/18 09:01 [facility] (Rec: 04/26/18 09:48 [facility] [id number]) Balance Tests Figueredo Balance Test Figueredo Balance Test Score 50 Figueredo Impairment Rating 1 to 19% Impaired (Score 45-55 ) PT-OP-E Functional Tests Start: 04/26/18 09:48 Freq: Status: Active Protocol: Document 04/26/18 09:01 [facility] (Rec: 04/26/18 09:48 [facility] [id number]) Functional Tests Functional Gait Assessment Score 17 Functional Gait Assessment Impairment 40 to <60% Impaired (Score 13- Rating 18) PT-OP-M Strength Start: 04/25/18 16:04 Freq: Status: Active Protocol: Document 04/26/18 09:01 [facility] (Rec: 04/26/18 09:48 [facility] [id number]) Hip Strength Hip Manual Muscle Testing Right Flexion (L2) 3+ Fair+ Extension (S1) 3+ Fair+ Abduction 3+ Fair+ External Rotation 3+ Fair+ Internal Rotation 4- Good- Left Flexion (L2) 4 Good Extension (S1) 3+ Fair+ Abduction 4- Good- External Rotation 4 Good Internal Rotation 4 Good Knee Strength Knee Manual Muscle Testing Right Flexion (S2) 4 Good Extension (L3) 4 Good Left Flexion (S2) 4+ Good+ Extension (L3) 4+ Good+ Ankle/Foot Strength Ankle and Foot Manual Muscle Testing Right Dorsiflexion (L4) 4 Good Plantarflexion (S1) 4 Good Left Dorsiflexion (L4) 4+ Good+ Plantarflexion (S1) 4+ Good+ Comments seated testing PT-OP-Q Treatments Start: 04/25/18 16:04 Freq: Status: Active Protocol: Document 05/29/18 13:47 [facility] (Rec: 05/29/18 14:25 [facility] [id number]) Cardio Equipment Recumbent Elliptical (Biodex) Duration (Minutes) 6 Resistance 5 Seat Position 6 Gym Equipment Shuttle Balance red clips Details fwd: NBOS, WBOS & staggered stance; side: WBOS & NBOS Comments w/balloon Therapeutic Exercises Standing Exercises squats Standing Exercise Name at bar Reps/Minutes 2x10 lunges Standing Exercise Name walking Reps/Minutes 4x20ft Neuro Re-Education Treatment Balance Activities dynadisc Details dynadisc yellow Comments EC & head turns hurdles Details hurdles Reps/Duration 8 Comments theradiscs btwn & dynadiscs at ends tandem walking Details tandem walking Reps/Duration 4x20ft marching fwd Details fwd/back march Reps/Duration 50ft Comments w/eyes closed fwd/back EC Details fwd/back walk EC fast Reps/Duration 2x50ft PT-OP-T Assessment and Plan Start: 04/25/18 16:04 Freq: Status: Active Protocol: Document 05/29/18 13:47 [facility] (Rec: 05/29/18 14:25 [facility] [id number]) Physical Therapy Assessment Goals functional ability Impairment Dec ability to get up/down from ground Supervisor Billposting Goal (LTG) Pt will be able to get up/down from ground independently and safely. LTG Duration 06/24/18 strength Short Term Goal (STG) Pt will be indep with HEP STG Duration 05/27/18 Fpc Goal (LTG) Pt will have 4+/5 strength, allowing her to have greater ease with daily tasks. LTG Duration 06/24/18 balance Short Term Goal (STG) Pt will score 21/30 on FGA STG Duration 05/27/18 Supervisor Billposting Goal (LTG) Pt will score >26/30 on FGA demonstrating dec risk for falls. LTG Duration 06/24/18 Assessment Summary Assessment Improved ability today with balance activities on balance board especially when facing forward. She cont to be fatigued with session. Physical Therapy Plan Frequency and Duration Frequency of Treatment 2x/Week Duration of Treatment 2 months Plan of Care Start Date 04/26/18 Plan of Care End Date 06/24/18 Next Visit Focus/Plan Next Note Type Treatment Note Next Visit Plan Advance LE strength & balance
--- NOTE | 2018-06-02 11:18 | PT.OTN ---
Current Diagnoses Cerebral infarction, unspecified (06/02/18) Physical Therapy Treatment Note PT-OP-A Visit Information Start: 04/25/18 16:04 Freq: Status: Active Protocol: Document 06/02/18 10:31 [facility] (Rec: 06/02/18 11:18 [facility] [id number]) Out-Patient Physical Therapy Visit Information Visit Information Visit Type Treatment Note Visit Start Time 10:30 Visit Stop Time 11:10 Total Visit Minutes 40 Visit Number 8/10 Number of MAJOR DONOR COORDINATOR Visits 0 PT-OP-B Current Condition Start: 04/25/18 16:04 Freq: Status: Active Protocol: Document 04/26/18 09:01 [facility] (Rec: 04/26/18 09:48 [facility] [id number]) Current Condition History of Current Condition Onset Date 02/10/18 Current Complaints R sided weakness History of Current Condition Pt reports she had a CVA on which resulted in weakness on R side and dec balance. Pt had HH until recently and they said she wouldn't need OT. Pt had a trip for the past month so she hasn't been doing any therapy . Pt reports some speech issues since the stroke. Pt is typically out and about with visiting with friends and playing games. 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 Pt reports no falls but reports she has had 2 times where she went down low to get something and had difficulty getting up . Pt lives alone in a large house. Pt reports she was bumping into the wall at first but isn't having that issue anymore. Pt reports occasional catching of R ankle that happened also prior to stroke. Pt reports she started driving just recently. Her kids set up a course for her to try to check her driving. Treatment Goals Patient/Caregiver Goals inc ease with getting up/down from ground; get the strength back in her body, be able to write and paint PT-OP-C Subjective Start: 04/25/18 16:04 Freq: Status: Active Protocol: Document 06/02/18 10:31 [facility] (Rec: 06/02/18 11:18 [facility] [id number]) OP-PT Subjective Patient Comments Patient Comments Pt reports she has done some of her exercises, but notes she needs to be more consistent. PT-OP-D Balance Start: 04/25/18 16:04 Freq: Status: Active Protocol: Document 04/26/18 09:01 [facility] (Rec: 04/26/18 09:48 [facility] [id number]) Balance Tests Figueredo Balance Test Figueredo Balance Test Score 50 Figueredo Impairment Rating 1 to 19% Impaired (Score 45-55 ) PT-OP-E Functional Tests Start: 04/26/18 09:48 Freq: Status: Active Protocol: Document 04/26/18 09:01 [facility] (Rec: 04/26/18 09:48 [facility] [id number]) Functional Tests Functional Gait Assessment Score 17 Functional Gait Assessment Impairment 40 to <60% Impaired (Score 13- Rating 18) PT-OP-M Strength Start: 04/25/18 16:04 Freq: Status: Active Protocol: Document 04/26/18 09:01 [facility] (Rec: 04/26/18 09:48 [facility] [id number]) Hip Strength Hip Manual Muscle Testing Right Flexion (L2) 3+ Fair+ Extension (S1) 3+ Fair+ Abduction 3+ Fair+ External Rotation 3+ Fair+ Internal Rotation 4- Good- Left Flexion (L2) 4 Good Extension (S1) 3+ Fair+ Abduction 4- Good- External Rotation 4 Good Internal Rotation 4 Good Knee Strength Knee Manual Muscle Testing Right Flexion (S2) 4 Good Extension (L3) 4 Good Left Flexion (S2) 4+ Good+ Extension (L3) 4+ Good+ Ankle/Foot Strength Ankle and Foot Manual Muscle Testing Right Dorsiflexion (L4) 4 Good Plantarflexion (S1) 4 Good Left Dorsiflexion (L4) 4+ Good+ Plantarflexion (S1) 4+ Good+ Comments seated testing PT-OP-Q Treatments Start: 04/25/18 16:04 Freq: Status: Active Protocol: Document 06/02/18 10:31 [facility] (Rec: 06/02/18 11:18 [facility] [id number]) Cardio Equipment Recumbent Elliptical (Biodex) Duration (Minutes) 6 Resistance 5 Seat Position 6 Gym Equipment Shuttle Balance red clips Details fwd: NBOS, WBOS & staggered stance; side: WBOS & NBOS Comments w/balloon Therapeutic Exercises Standing Exercises sidestep Standing Exercise Name sidestep Side bilateral Resistance red band Reps/Minutes 20ftx2 Neuro Re-Education Treatment Balance Activities dynadisc Details dynadisc yellow Comments EC & head turns hurdles Details hurdles Reps/Duration 8 Comments theradiscs btwn & dynadiscs at ends backwards walk Details along line Reps/Duration 50ft Comments fwd 2x50ft along line fwd/back EC Details fwd/back walk EC fast Reps/Duration 2x50ft PT-OP-T Assessment and Plan Start: 04/25/18 16:04 Freq: Status: Active Protocol: Document 06/02/18 10:31 [facility] (Rec: 06/02/18 11:18 [facility] [id number]) Physical Therapy Assessment Goals functional ability Impairment Dec ability to get up/down from ground Half-Way Goal (LTG) Pt will be able to get up/down from ground independently and safely. LTG Duration 06/24/18 strength Short Term Goal (STG) Pt will be indep with HEP STG Duration 05/27/18 Half-Way Goal (LTG) Pt will have 4+/5 strength, allowing her to have greater ease with daily tasks. LTG Duration 06/24/18 balance Short Term Goal (STG) Pt will score 21/30 on FGA STG Duration 05/27/18 Ac/Dc Rewinder Goal (LTG) Pt will score >26/30 on FGA demonstrating dec risk for falls. LTG Duration 06/24/18 Assessment Summary Assessment Pt c/o of feeling a little unbalance about 25 min in. After about 1 min of resting and drinking water, she felt better. BP was 165/80 and pt noted sometimes her BP is higher than others. Encouraged to check later at home when rested and call MD if BP remains too high. She did very well with balance baord today with less use of rail to remain balanced. Physical Therapy Plan Frequency and Duration Frequency of Treatment 2x/Week Duration of Treatment 2 months Plan of Care Start Date 04/26/18 Plan of Care End Date 06/24/18 Next Visit Focus/Plan Next Note Type Treatment Note Next Visit Plan Advance LE strength & balance
--- NOTE | 2018-06-06 11:58 | PT.OTN ---
Current Diagnoses Cerebral infarction, unspecified (06/06/18) Physical Therapy Treatment Note PT-OP-A Visit Information Start: 04/25/18 16:04 Freq: Status: Active Protocol: Document 06/06/18 11:15 [facility] (Rec: 06/06/18 11:58 [facility] [id number]) Out-Patient Physical Therapy Visit Information Visit Information Visit Type Treatment Note Visit Start Time 11:15 Visit Stop Time 12:00 Total Visit Minutes 45 Visit Number 9/10 Number of RETAIL ASSISTANT Visits 0 PT-OP-B Current Condition Start: 04/25/18 16:04 Freq: Status: Active Protocol: Document 04/26/18 09:01 [facility] (Rec: 04/26/18 09:48 [facility] [id number]) Current Condition History of Current Condition Onset Date 02/10/18 Current Complaints R sided weakness History of Current Condition Pt reports she had a CVA on which resulted in weakness on R side and dec balance. Pt had HH until recently and they said she wouldn't need OT. Pt had a trip for the past month so she hasn't been doing any therapy . Pt reports some speech issues since the stroke. Pt is typically out and about with visiting with friends and playing games. 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 Pt reports no falls but reports she has had 2 times where she went down low to get something and had difficulty getting up . Pt lives alone in a large house. Pt reports she was bumping into the wall at first but isn't having that issue anymore. Pt reports occasional catching of R ankle that happened also prior to stroke. Pt reports she started driving just recently. Her kids set up a course for her to try to check her driving. Treatment Goals Patient/Caregiver Goals inc ease with getting up/down from ground; get the strength back in her body, be able to write and paint PT-OP-C Subjective Start: 04/25/18 16:04 Freq: Status: Active Protocol: Document 06/06/18 11:15 [facility] (Rec: 06/06/18 11:58 [facility] [id number]) OP-PT Subjective Patient Comments Patient Comments I don't know how I'm doing with walking in a line, I don' t really feel like it is improving. PT-OP-D Balance Start: 04/25/18 16:04 Freq: Status: Active Protocol: Document 04/26/18 09:01 [facility] (Rec: 04/26/18 09:48 [facility] [id number]) Balance Tests Figueredo Balance Test Figueredo Balance Test Score 50 Figueredo Impairment Rating 1 to 19% Impaired (Score 45-55 ) PT-OP-E Functional Tests Start: 04/26/18 09:48 Freq: Status: Active Protocol: Document 04/26/18 09:01 [facility] (Rec: 04/26/18 09:48 [facility] [id number]) Functional Tests Functional Gait Assessment Score 17 Functional Gait Assessment Impairment 40 to <60% Impaired (Score 13- Rating 18) PT-OP-M Strength Start: 04/25/18 16:04 Freq: Status: Active Protocol: Document 04/26/18 09:01 [facility] (Rec: 04/26/18 09:48 [facility] [id number]) Hip Strength Hip Manual Muscle Testing Right Flexion (L2) 3+ Fair+ Extension (S1) 3+ Fair+ Abduction 3+ Fair+ External Rotation 3+ Fair+ Internal Rotation 4- Good- Left Flexion (L2) 4 Good Extension (S1) 3+ Fair+ Abduction 4- Good- External Rotation 4 Good Internal Rotation 4 Good Knee Strength Knee Manual Muscle Testing Right Flexion (S2) 4 Good Extension (L3) 4 Good Left Flexion (S2) 4+ Good+ Extension (L3) 4+ Good+ Ankle/Foot Strength Ankle and Foot Manual Muscle Testing Right Dorsiflexion (L4) 4 Good Plantarflexion (S1) 4 Good Left Dorsiflexion (L4) 4+ Good+ Plantarflexion (S1) 4+ Good+ Comments seated testing PT-OP-Q Treatments Start: 04/25/18 16:04 Freq: Status: Active Protocol: Document 06/06/18 11:15 [facility] (Rec: 06/06/18 11:58 [facility] [id number]) Cardio Equipment Recumbent Elliptical (Biodex) Duration (Minutes) 6 Resistance 5 Seat Position 6 Gym Equipment Shuttle Recovery Bilateral Heel Raises Resistance 50# Shuttle Recovery Platform Stable Reps/Time 2x15 Bilateral Squats Resistance 100# Shuttle Recovery Platform Stable Reps/Time 2x15 Shuttle Balance red clips Details fwd: NBOS, WBOS (EO/EC) & staggered stance; side: WBOS / c balloon Comments w/balloon Therapeutic Exercises Standing Exercises squats Standing Exercise Name at bar Reps/Minutes 2x10 fwd/back Standing Exercise Name resisted Side bilateral Equipment Used green band Reps/Minutes 20ftx2 sidestep Standing Exercise Name sidestep Side bilateral Resistance green band Reps/Minutes 20ft x2 Neuro Re-Education Treatment Balance Activities hurdles Details hurdles Reps/Duration 8 Comments theradiscs btwn & dynadiscs at ends; fwd, tandem, and side- stepping tandem walking Details tandem walking Reps/Duration 4x20ft backwards walk Details along line Reps/Duration 50ft Comments fwd 2x50ft along line PT-OP-T Assessment and Plan Start: 04/25/18 16:04 Freq: Status: Active Protocol: Document 06/06/18 11:15 [facility] (Rec: 06/06/18 11:58 [facility] [id number]) Physical Therapy Assessment Goals functional ability Impairment Dec ability to get up/down from ground Custodial Goal (LTG) Pt will be able to get up/down from ground independently and safely. LTG Duration 06/24/18 strength Short Term Goal (STG) Pt will be indep with HEP STG Duration 05/27/18 Custodial Goal (LTG) Pt will have 4+/5 strength, allowing her to have greater ease with daily tasks. LTG Duration 06/24/18 balance Short Term Goal (STG) Pt will score 21/30 on FGA STG Duration 05/27/18 Dobby Loom Fixer Goal (LTG) Pt will score >26/30 on FGA demonstrating dec risk for falls. LTG Duration 06/24/18 Assessment Summary Assessment Pt did very well today, admitted that she has finally been doing her HEP regularly, and she is now encouraged to keep doing more. Physical Therapy Plan Frequency and Duration Frequency of Treatment 2x/Week Duration of Treatment 2 months Plan of Care Start Date 04/26/18 Plan of Care End Date 06/24/18 Next Visit Focus/Plan Next Note Type Treatment Note Next Visit Plan Advance LE strength & balance
--- NOTE | 2018-06-08 11:09 | PT.OTN ---
Current Diagnoses Cerebral infarction, unspecified (06/08/18) Physical Therapy Treatment Note PT-OP-A Visit Information Start: 04/25/18 16:04 Freq: Status: Active Protocol: Document 06/08/18 10:30 [facility] (Rec: 06/08/18 11:08 [facility] [id number]) Out-Patient Physical Therapy Visit Information Visit Information Visit Type Progress Note Visit Start Time 10:30 Visit Stop Time 11:15 Total Visit Minutes 45 Visit Number 01/18 Number of HOUSEKEEPER HEAD Visits 0 PT-OP-B Current Condition Start: 04/25/18 16:04 Freq: Status: Active Protocol: Document 04/26/18 09:01 [facility] (Rec: 04/26/18 09:48 [facility] [id number]) Current Condition History of Current Condition Onset Date 02/10/18 Current Complaints R sided weakness History of Current Condition Pt reports she had a CVA on which resulted in weakness on R side and dec balance. Pt had HH until recently and they said she wouldn't need OT. Pt had a trip for the past month so she hasn't been doing any therapy . Pt reports some speech issues since the stroke. Pt is typically out and about with visiting with friends and playing games. 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 Pt reports no falls but reports she has had 2 times where she went down low to get something and had difficulty getting up . Pt lives alone in a large house. Pt reports she was bumping into the wall at first but isn't having that issue anymore. Pt reports occasional catching of R ankle that happened also prior to stroke. Pt reports she started driving just recently. Her kids set up a course for her to try to check her driving. Treatment Goals Patient/Caregiver Goals inc ease with getting up/down from ground; get the strength back in her body, be able to write and paint PT-OP-C Subjective Start: 04/25/18 16:04 Freq: Status: Active Protocol: Document 06/08/18 10:30 [facility] (Rec: 06/08/18 11:08 [facility] [id number]) OP-PT Subjective Patient Comments Patient Comments It's amazing how much doing what you're told to do actually helps. PT-OP-D Balance Start: 04/25/18 16:04 Freq: Status: Active Protocol: Document 04/26/18 09:01 [facility] (Rec: 04/26/18 09:48 [facility] [id number]) Balance Tests Figueredo Balance Test Figueredo Balance Test Score 50 Figueredo Impairment Rating 1 to 19% Impaired (Score 45-55 ) PT-OP-E Functional Tests Start: 04/26/18 09:48 Freq: Status: Active Protocol: Document 06/08/18 10:30 [facility] (Rec: 06/08/18 11:08 [facility] [id number]) Functional Tests Functional Gait Assessment Score 26/30 Functional Gait Assessment Impairment 1 to <20% Impaired (Score 25- Rating 29) PT-OP-M Strength Start: 04/25/18 16:04 Freq: Status: Active Protocol: Document 04/26/18 09:01 [facility] (Rec: 04/26/18 09:48 [facility] [id number]) Hip Strength Hip Manual Muscle Testing Right Flexion (L2) 3+ Fair+ Extension (S1) 3+ Fair+ Abduction 3+ Fair+ External Rotation 3+ Fair+ Internal Rotation 4- Good- Left Flexion (L2) 4 Good Extension (S1) 3+ Fair+ Abduction 4- Good- External Rotation 4 Good Internal Rotation 4 Good Knee Strength Knee Manual Muscle Testing Right Flexion (S2) 4 Good Extension (L3) 4 Good Left Flexion (S2) 4+ Good+ Extension (L3) 4+ Good+ Ankle/Foot Strength Ankle and Foot Manual Muscle Testing Right Dorsiflexion (L4) 4 Good Plantarflexion (S1) 4 Good Left Dorsiflexion (L4) 4+ Good+ Plantarflexion (S1) 4+ Good+ Comments seated testing PT-OP-Q Treatments Start: 04/25/18 16:04 Freq: Status: Active Protocol: Document 06/08/18 10:30 [facility] (Rec: 06/08/18 11:08 [facility] [id number]) Cardio Equipment Recumbent Elliptical (Biodex) Duration (Minutes) 6 Resistance 6 Seat Position 6 Gym Equipment Shuttle Balance red clips Details fwd: NBOS, WBOS (EO/EC) & staggered stance; side: WBOS / c balloon Comments w/balloon Therapeutic Exercises Standing Exercises squats Standing Exercise Name at bar Reps/Minutes 2x10 fwd/back Standing Exercise Name resisted Side bilateral Equipment Used green band Reps/Minutes 20ftx2 sidestep Standing Exercise Name sidestep Side bilateral Resistance green band Reps/Minutes 20ft x2 Neuro Re-Education Treatment Balance Activities FGA Details FGA Comments tandem walking Details tandem walking Reps/Duration 4x20ft backwards walk Details along line Reps/Duration 50ft Comments fwd 2x50ft along line PT-OP-T Assessment and Plan Start: 04/25/18 16:04 Freq: Status: Active Protocol: Document 06/08/18 10:30 [facility] (Rec: 06/08/18 11:08 [facility] [id number]) Physical Therapy Assessment Goals functional ability Impairment Dec ability to get up/down from ground Yarn Spinner Goal (LTG) Pt will be able to get up/down from ground independently and safely. LTG Duration 06/24/18 strength Short Term Goal (STG) Pt will be indep with HEP STG Duration 05/27/18 Residential Goal (LTG) Pt will have 4+/5 strength, allowing her to have greater ease with daily tasks. LTG Duration 06/24/18 balance Short Term Goal (STG) Pt will score 21/30 on FGA STG Duration Met Yarn Spinner Goal (LTG) Pt will score >26/30 on FGA demonstrating dec risk for falls. LTG Duration 06/24/18 Assessment Summary Assessment Pt has showed excellent progress with her ability to perform her balance activities since becoming more motivated to be compliant with her HEP. FGA score has improved from 17/30 to 26/30 since her initial evaluation. Physical Therapy Plan Frequency and Duration Frequency of Treatment 2x/Week Duration of Treatment 2 months Plan of Care Start Date 04/26/18 Plan of Care End Date 06/24/18 Next Visit Focus/Plan Next Note Type Treatment Note Next Visit Plan Advance LE strength & balance
--- NOTE | 2018-06-13 16:48 | PT.OTN ---
Current Diagnoses Cerebral infarction, unspecified (06/13/18) Physical Therapy Treatment Note PT-OP-A Visit Information Start: 04/25/18 16:04 Freq: Status: Active Protocol: Document 06/13/18 15:15 [facility] (Rec: 06/13/18 16:48 [facility] [id number]) Out-Patient Physical Therapy Visit Information Visit Information Visit Type Treatment Note Visit Start Time 15:15 Visit Stop Time 15:55 Total Visit Minutes 40 Visit Number 02/28 Number of [employer] LEADER Visits 1 PT-OP-B Current Condition Start: 04/25/18 16:04 Freq: Status: Active Protocol: Document 04/26/18 09:01 [facility] (Rec: 04/26/18 09:48 [facility] [id number]) Current Condition History of Current Condition Onset Date 02/10/18 Current Complaints R sided weakness History of Current Condition Pt reports she had a CVA on which resulted in weakness on R side and dec balance. Pt had HH until recently and they said she wouldn't need OT. Pt had a trip for the past month so she hasn't been doing any therapy . Pt reports some speech issues since the stroke. Pt is typically out and about with visiting with friends and playing games. 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 Pt reports no falls but reports she has had 2 times where she went down low to get something and had difficulty getting up . Pt lives alone in a large house. Pt reports she was bumping into the wall at first but isn't having that issue anymore. Pt reports occasional catching of R ankle that happened also prior to stroke. Pt reports she started driving just recently. Her kids set up a course for her to try to check her driving. Treatment Goals Patient/Caregiver Goals inc ease with getting up/down from ground; get the strength back in her body, be able to write and paint PT-OP-C Subjective Start: 04/25/18 16:04 Freq: Status: Active Protocol: Document 06/13/18 15:15 GGD (Rec: 06/13/18 16:48 GGD [id number]) OP-PT Subjective Patient Comments Patient Comments Pt states she walking better. PT-OP-D Balance Start: 04/25/18 16:04 Freq: Status: Active Protocol: Document 04/26/18 09:01 [facility] (Rec: 04/26/18 09:48 [facility] [id number]) Balance Tests Figueredo Balance Test Figueredo Balance Test Score 50 Figueredo Impairment Rating 1 to 19% Impaired (Score 45-55 ) PT-OP-E Functional Tests Start: 04/26/18 09:48 Freq: Status: Active Protocol: Document 06/08/18 10:30 [facility] (Rec: 06/08/18 11:08 [facility] [id number]) Functional Tests Functional Gait Assessment Score 26/30 Functional Gait Assessment Impairment 1 to <20% Impaired (Score 25- Rating 29) PT-OP-M Strength Start: 04/25/18 16:04 Freq: Status: Active Protocol: Document 04/26/18 09:01 [facility] (Rec: 04/26/18 09:48 [facility] [id number]) Hip Strength Hip Manual Muscle Testing Right Flexion (L2) 3+ Fair+ Extension (S1) 3+ Fair+ Abduction 3+ Fair+ External Rotation 3+ Fair+ Internal Rotation 4- Good- Left Flexion (L2) 4 Good Extension (S1) 3+ Fair+ Abduction 4- Good- External Rotation 4 Good Internal Rotation 4 Good Knee Strength Knee Manual Muscle Testing Right Flexion (S2) 4 Good Extension (L3) 4 Good Left Flexion (S2) 4+ Good+ Extension (L3) 4+ Good+ Ankle/Foot Strength Ankle and Foot Manual Muscle Testing Right Dorsiflexion (L4) 4 Good Plantarflexion (S1) 4 Good Left Dorsiflexion (L4) 4+ Good+ Plantarflexion (S1) 4+ Good+ Comments seated testing PT-OP-Q Treatments Start: 04/25/18 16:04 Freq: Status: Active Protocol: Document 06/13/18 15:15 GGD (Rec: 06/13/18 16:48 GGD [id number]) Cardio Equipment Recumbent Elliptical (Biodex) Duration (Minutes) 6 Resistance 6 Seat Position 6 Gym Equipment Shuttle Recovery Bilateral Heel Raises Resistance 50# Shuttle Recovery Platform Stable Reps/Time 2x15 Bilateral Squats Resistance 100# Shuttle Recovery Platform Stable Reps/Time 2x15 Shuttle Balance red clips Details fwd: NBOS, WBOS (EO/EC) & staggered stance; side: WBOS / c balloon Comments w/balloon, Therapeutic Exercises Standing Exercises grapevine Reps/Minutes 2 x 20 feet squats Standing Exercise Name at bar Reps/Minutes 2x10 fwd/back Standing Exercise Name resisted Side bilateral Equipment Used green band Reps/Minutes 20ftx2 sidestep Standing Exercise Name sidestep Side bilateral Resistance green band Reps/Minutes 20ft x2 Neuro Re-Education Treatment Balance Activities SLS Reps/Duration 4 each hurdles Details hurdles Reps/Duration 8 Comments theradiscs btwn & dynadiscs at ends; fwd, tandem, and side- stepping tandem walking Details tandem walking Reps/Duration 4x20ft backwards walk Details along line Reps/Duration 50ft Comments fwd 2x50ft along line PT-OP-T Assessment and Plan Start: 04/25/18 16:04 Freq: Status: Active Protocol: Document 06/13/18 15:15 GGD (Rec: 06/13/18 16:48 GGD [id number]) Physical Therapy Assessment Assessment Summary Assessment Pt improving with balance and gait. She was able to progress balance board. She had mild LOb with hurdles needing UE support. Physical Therapy Plan Frequency and Duration Frequency of Treatment 2x/Week Duration of Treatment 2 months Plan of Care Start Date 04/26/18 Plan of Care End Date 06/24/18 Next Visit Focus/Plan Next Note Type Treatment Note Next Visit Plan Advance LE strength & balance
--- NOTE | 2018-06-15 15:23 | PT.OTN ---
Current Diagnoses Cerebral infarction, unspecified (06/15/18) Physical Therapy Treatment Note PT-OP-A Visit Information Start: 04/25/18 16:04 Freq: Status: Active Protocol: Document 06/15/18 11:15 AMB (Rec: 06/15/18 15:11 AMB [email or web address]) Out-Patient Physical Therapy Visit Information Visit Information Visit Type Treatment Note Visit Start Time 11:15 Visit Stop Time 11:55 Total Visit Minutes 40 Visit Number 03/30 Number of AIRCRAFT ENGINE DISMANTLER Visits 0 PT-OP-B Current Condition Start: 04/25/18 16:04 Freq: Status: Active Protocol: Document 04/26/18 09:01 LR (Rec: 04/26/18 09:48 [facility] [id number]) Current Condition History of Current Condition Onset Date 02/10/18 Current Complaints R sided weakness History of Current Condition Pt reports she had a CVA on which resulted in weakness on R side and dec balance. Pt had HH until recently and they said she wouldn't need OT. Pt had a trip for the past month so she hasn't been doing any therapy . Pt reports some speech issues since the stroke. Pt is typically out and about with visiting with friends and playing games. 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 Pt reports no falls but reports she has had 2 times where she went down low to get something and had difficulty getting up . Pt lives alone in a large house. Pt reports she was bumping into the wall at first but isn't having that issue anymore. Pt reports occasional catching of R ankle that happened also prior to stroke. Pt reports she started driving just recently. Her kids set up a course for her to try to check her driving. Treatment Goals Patient/Caregiver Goals inc ease with getting up/down from ground; get the strength back in her body, be able to write and paint PT-OP-C Subjective Start: 04/25/18 16:04 Freq: Status: Active Protocol: Document 06/15/18 11:15 AMB (Rec: 06/15/18 15:11 AMB [email or web address]) OP-PT Subjective Patient Comments Patient Comments Pt reports she has good days and bad days, but overall she feels she is getting better. PT-OP-D Balance Start: 04/25/18 16:04 Freq: Status: Active Protocol: Document 04/26/18 09:01 [facility] (Rec: 04/26/18 09:48 [facility] [id number]) Balance Tests Figueredo Balance Test Figueredo Balance Test Score 50 Figueredo Impairment Rating 1 to 19% Impaired (Score 45-55 ) PT-OP-E Functional Tests Start: 04/26/18 09:48 Freq: Status: Active Protocol: Document 06/08/18 10:30 DCW (Rec: 06/08/18 11:08 DC[facility] [id number]) Functional Tests Functional Gait Assessment Score 26/30 Functional Gait Assessment Impairment 1 to <20% Impaired (Score 25- Rating 29) PT-OP-M Strength Start: 04/25/18 16:04 Freq: Status: Active Protocol: Document 04/26/18 09:01 [facility] (Rec: 04/26/18 09:48 [facility] [id number]) Hip Strength Hip Manual Muscle Testing Right Flexion (L2) 3+ Fair+ Extension (S1) 3+ Fair+ Abduction 3+ Fair+ External Rotation 3+ Fair+ Internal Rotation 4- Good- Left Flexion (L2) 4 Good Extension (S1) 3+ Fair+ Abduction 4- Good- External Rotation 4 Good Internal Rotation 4 Good Knee Strength Knee Manual Muscle Testing Right Flexion (S2) 4 Good Extension (L3) 4 Good Left Flexion (S2) 4+ Good+ Extension (L3) 4+ Good+ Ankle/Foot Strength Ankle and Foot Manual Muscle Testing Right Dorsiflexion (L4) 4 Good Plantarflexion (S1) 4 Good Left Dorsiflexion (L4) 4+ Good+ Plantarflexion (S1) 4+ Good+ Comments seated testing PT-OP-Q Treatments Start: 04/25/18 16:04 Freq: Status: Active Protocol: Document 06/15/18 11:15 AMB (Rec: 06/15/18 15:11 AMB [email or web address]) Gym Equipment Shuttle Balance red clips Details fwd: NBOS, WBOS (EO/EC) & staggered stance; Comments w/balloon, Therapeutic Exercises Standing Exercises 2 Standing Exercise Name calf stretch Reps/Minutes 30x2 1 Standing Exercise Name heel raises Reps/Minutes 2x10 grapevine Reps/Minutes 2 x 20 feet fwd/back Standing Exercise Name resisted Side bilateral Equipment Used green band Reps/Minutes 20ftx2 sidestep Standing Exercise Name sidestep Side bilateral Resistance green band Reps/Minutes 20ft x2 Neuro Re-Education Treatment Balance Activities hurdles Details hurdles Reps/Duration 8 Comments theradiscs btwn & dynadiscs at ends; fwd, tandem, and side- stepping tandem walking Details tandem walking Reps/Duration 4x20ft Comments CGA PT-OP-T Assessment and Plan Start: 04/25/18 16:04 Freq: Status: Active Protocol: Document 06/15/18 11:15 AMB (Rec: 06/15/18 15:22 AMB [email or web address]) Physical Therapy Assessment Assessment Summary Assessment Pt did better with hurdles today, 2 rest breaks needed. Physical Therapy Plan Next Visit Focus/Plan Next Note Type Treatment Note Next Visit Plan Advance LE strength & balance
--- NOTE | 2018-06-20 17:13 | PT.OTRE ---
Current Diagnoses Cerebral infarction, unspecified (06/20/18) Past Medical History (Last Updated 02/11/18 @ 17:27 by Brayden Ramos MD) Depression (Acute) Dyslipidemia (Acute) H/O: hysterectomy (Acute) Peripheral arterial disease (Acute) COPD (chronic obstructive pulmonary disease) (Chronic) History of hypertension (Inactive) Surgical History (Last Updated 03/04/18 @ 07:20 by Navjot Jeffries DO) No pertinent past surgical history (Acute) Provider Visit Care Team Role Provider Type Vanna Ceballos PA-C Attending Provider Advanced Tractor Trailer Operator Primary Care Provider Specialty: Internal Medicine Address: [address] [place] [address] Email: Physical Therapy Re-Evaluation PT-OP-A Visit Information Start: 04/25/18 16:04 Freq: Status: Active Protocol: Document 06/20/18 11:13 [facility] (Rec: 06/20/18 11:16 [facility] [email or web address]) Out-Patient Physical Therapy Visit Information Visit Information Visit Type Re-Evaluation Visit Start Time 10:30 Visit Stop Time 11:15 Total Visit Minutes 45 Visit Number PT-OP-B Current Condition Start: 04/25/18 16:04 Freq: Status: Active Protocol: Document 04/26/18 09:01 [facility] (Rec: 04/26/18 09:48 [facility] [id number]) Current Condition History of Current Condition Onset Date 02/10/18 Current Complaints R sided weakness History of Current Condition Pt reports she had a CVA on which resulted in weakness on R side and dec balance. Pt had HH until recently and they said she wouldn't need OT. Pt had a trip for the past month so she hasn't been doing any therapy . Pt reports some speech issues since the stroke. Pt is typically out and about with visiting with friends and playing games. 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 Pt reports no falls but reports she has had 2 times where she went down low to get something and had difficulty getting up . Pt lives alone in a large house. Pt reports she was bumping into the wall at first but isn't having that issue anymore. Pt reports occasional catching of R ankle that happened also prior to stroke. Pt reports she started driving just recently. Her kids set up a course for her to try to check her driving. Treatment Goals Patient/Caregiver Goals inc ease with getting up/down from ground; get the strength back in her body, be able to write and paint PT-OP-C Subjective Start: 04/25/18 16:04 Freq: Status: Active Protocol: Document 06/20/18 11:15 [facility] (Rec: 06/20/18 17:10 [facility] [email or web address]) OP-PT Subjective Patient Comments Patient Comments Susi reports she feels as if she is much stronger overall since beginning PT PT-OP-D Balance Start: 04/25/18 16:04 Freq: Status: Active Protocol: Document 06/20/18 11:15 [facility] (Rec: 06/20/18 17:10 [facility] [email or web address]) Figueredo Balance Assessment Total Score Figueredo Impairment Rating 1 to 19% Impaired (Score 45-55 ) PT-OP-E Functional Tests Start: 04/26/18 09:48 Freq: Status: Active Protocol: Document 06/20/18 11:15 [facility] (Rec: 06/20/18 17:10 [facility] [email or web address]) Functional Tests Functional Gait Assessment Score 26/30 Functional Gait Assessment Impairment 1 to <20% Impaired (Score 25- Rating 29) PT-OP-G Mobility & Gait Start: 04/25/18 16:04 Freq: Status: Active Protocol: Document 06/20/18 11:15 [facility] (Rec: 06/20/18 17:10 [facility] [email or web address]) OP Mobility Evaluation Transfers Floor Transfers able to demonstrate safe transfer from standing to floor and from floor back to standing PT-OP-M Strength Start: 04/25/18 16:04 Freq: Status: Active Protocol: Document 06/20/18 11:15 [facility] (Rec: 06/20/18 17:10 [facility] [email or web address]) Hip Strength Hip Manual Muscle Testing Right Flexion (L2) 4 Good Extension (S1) 3+ Fair+ Abduction 3+ Fair+ External Rotation 3+ Fair+ Internal Rotation 4- Good- Left Flexion (L2) 4 Good Extension (S1) 3+ Fair+ Abduction 4- Good- External Rotation 4 Good Internal Rotation 4 Good PT-OP-Q Treatments Start: 04/25/18 16:04 Freq: Status: Active Protocol: Document 06/20/18 17:10 [facility] (Rec: 06/20/18 17:11 [facility] [email or web address]) Cardio Equipment Recumbent Elliptical (Biodex) Duration (Minutes) 6 Resistance 6 Seat Position 6 Gym Equipment Shuttle Recovery Bilateral Heel Raises Resistance 50# Shuttle Recovery Platform Stable Reps/Time 2x15 Bilateral Squats Resistance 100# Shuttle Recovery Platform Stable Reps/Time 2x15 Shuttle Balance red clips Details fwd: NBOS, WBOS (EO/EC) & staggered stance; Comments w/balloon, Therapeutic Exercises Supine Exercises hip abd Supine Exercise Name clam shells Resistance 2 x 10 Standing Exercises 2 Standing Exercise Name calf stretch Reps/Minutes 30x2 1 Standing Exercise Name heel raises Reps/Minutes 2x10 squats Standing Exercise Name at bar Reps/Minutes 2x10 sidestep Standing Exercise Name sidestep Side bilateral Resistance green band Reps/Minutes 20ft x2 PT-OP-T Assessment and Plan Start: 04/25/18 16:04 Freq: Status: Active Protocol: Document 06/20/18 11:15 [facility] (Rec: 06/20/18 17:10 [facility] [email or web address]) Physical Therapy Assessment Goals functional ability Short Term Goal (STG) GOAL MET strength [facility] Goal (LTG) GOOD PROGRESS balance Short Term Goal (STG) GOAL MET [facility] Goal (LTG) GOAL MET Progress Towards Goals Progress Towards Goals Progressing Toward Goals Progress Comments great improvement of functional gait, balance, and strength Assessment Summary Assessment Susi is doing better overall with functional gait, balance , and strength. She would benefit from focusing on higher level balance activities these next few weeks of treatment prior to DC home. Physical Therapy Plan Frequency and Duration Frequency of Treatment 2x/Week Duration of Treatment 1 month Plan of Care Start Date 06/20/18 Plan of Care End Date 07/21/18 Therapeutic Interventions Therapeutic Interventions Aquatic Therapy Balance Training Coordination Training Gait Training Home Exercise Program Manual Therapy Neuromuscular Re-education Patient/Caregiver Education Self-Care/Home Management Taping Therapeutic Activities Therapeutic Exercises Next Visit Focus/Plan Next Note Type Treatment Note Next Visit Plan Advance LE strength & balance
--- NOTE | 2018-06-28 12:06 | PT.OTN ---
Current Diagnoses Cerebral infarction, unspecified (06/28/18) Physical Therapy Treatment Note PT-OP-A Visit Information Start: 04/25/18 16:04 Freq: Status: Active Protocol: Document 06/28/18 11:21 [facility] (Rec: 06/28/18 12:06 [facility] [id number]) Out-Patient Physical Therapy Visit Information Visit Information Visit Type Treatment Note Visit Start Time 11:15 Visit Stop Time 11:55 Total Visit Minutes 40 Visit Number 20 Number of COLLECTOR Visits 0 PT-OP-B Current Condition Start: 04/25/18 16:04 Freq: Status: Active Protocol: Document 04/26/18 09:01 [facility] (Rec: 04/26/18 09:48 [facility] [id number]) Current Condition History of Current Condition Onset Date 02/10/18 Current Complaints R sided weakness History of Current Condition Pt reports she had a CVA on which resulted in weakness on R side and dec balance. Pt had HH until recently and they said she wouldn't need OT. Pt had a trip for the past month so she hasn't been doing any therapy . Pt reports some speech issues since the stroke. Pt is typically out and about with visiting with friends and playing games. 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 Pt reports no falls but reports she has had 2 times where she went down low to get something and had difficulty getting up . Pt lives alone in a large house. Pt reports she was bumping into the wall at first but isn't having that issue anymore. Pt reports occasional catching of R ankle that happened also prior to stroke. Pt reports she started driving just recently. Her kids set up a course for her to try to check her driving. Treatment Goals Patient/Caregiver Goals inc ease with getting up/down from ground; get the strength back in her body, be able to write and paint PT-OP-C Subjective Start: 04/25/18 16:04 Freq: Status: Active Protocol: Document 06/28/18 11:21 [facility] (Rec: 06/28/18 12:06 [facility] [id number]) OP-PT Subjective Patient Comments Patient Comments Pt reports she is being consistant with exericses. Patient Reported Progress Improving PT-OP-D Balance Start: 04/25/18 16:04 Freq: Status: Active Protocol: Document 06/20/18 11:15 [facility] (Rec: 06/20/18 17:10 [facility] [email or web address]) Figueredo Balance Assessment Total Score Figueredo Impairment Rating 1 to 19% Impaired (Score 45-55 ) PT-OP-E Functional Tests Start: 04/26/18 09:48 Freq: Status: Active Protocol: Document 06/20/18 11:15 [facility] (Rec: 06/20/18 17:10 [facility] [email or web address]) Functional Tests Functional Gait Assessment Score 26/30 Functional Gait Assessment Impairment 1 to <20% Impaired (Score 25- Rating 29) PT-OP-G Mobility & Gait Start: 04/25/18 16:04 Freq: Status: Active Protocol: Document 06/20/18 11:15 [facility] (Rec: 06/20/18 17:10 [facility] [email or web address]) OP Mobility Evaluation Transfers Floor Transfers able to demonstrate safe transfer from standing to floor and from floor back to standing PT-OP-M Strength Start: 04/25/18 16:04 Freq: Status: Active Protocol: Document 06/20/18 11:15 [facility] (Rec: 06/20/18 17:10 [facility] [email or web address]) Hip Strength Hip Manual Muscle Testing Right Flexion (L2) 4 Good Extension (S1) 3+ Fair+ Abduction 3+ Fair+ External Rotation 3+ Fair+ Internal Rotation 4- Good- Left Flexion (L2) 4 Good Extension (S1) 3+ Fair+ Abduction 4- Good- External Rotation 4 Good Internal Rotation 4 Good PT-OP-Q Treatments Start: 04/25/18 16:04 Freq: Status: Active Protocol: Document 06/28/18 11:21 [facility] (Rec: 06/28/18 12:06 [facility] [id number]) Cardio Equipment Recumbent Elliptical (Biodex) Duration (Minutes) 6 Resistance 7 Seat Position 6 Gym Equipment Shuttle Balance red clips Details fwd: NBOS, WBOS (EO/EC) & staggered stance; Comments w/balloon, Therapeutic Ball seated Exercise Details marches & kicks B Ball Size/Color 65 Comments 15 ea B Therapeutic Exercises Standing Exercises fwd/back Standing Exercise Name resisted Side bilateral Equipment Used green band Reps/Minutes 20ftx2 sidestep Standing Exercise Name sidestep w/squat Side bilateral Resistance red Reps/Minutes 20ftx2 Neuro Re-Education Treatment Balance Activities bosu Details step ups then 4 sec balance Reps/Duration 10 B tandem walking Details tandem walking Reps/Duration 3x20ft Comments CGA PT-OP-T Assessment and Plan Start: 04/25/18 16:04 Freq: Status: Active Protocol: Document 06/28/18 11:21 [facility] (Rec: 06/28/18 12:06 [facility] [id number]) Physical Therapy Assessment Goals functional ability Short Term Goal (STG) GOAL MET strength Penitentiary Goal (LTG) GOOD PROGRESS balance Short Term Goal (STG) GOAL MET Penitentiary Goal (LTG) GOAL MET Assessment Summary Assessment Pt cont to improve with balance on uneven surfaces. She had difficulty iwth seated on tball today and was fatigued with exercises. Physical Therapy Plan Frequency and Duration Frequency of Treatment 2x/Week Duration of Treatment 1 month Plan of Care Start Date 06/20/18 Plan of Care End Date 07/21/18 Next Visit Focus/Plan Next Note Type Treatment Note Next Visit Plan Advance LE strength & balance
--- NOTE | 2018-06-30 10:52 | PT.OTN ---
Current Diagnoses Cerebral infarction, unspecified (06/30/18) Physical Therapy Treatment Note PT-OP-A Visit Information Start: 04/25/18 16:04 Freq: Status: Active Protocol: Document 06/30/18 09:12 [facility] (Rec: 06/30/18 10:52 [facility] [id number]) Out-Patient Physical Therapy Visit Information Visit Information Visit Type Treatment Note Visit Start Time 09:05 Visit Stop Time 09:45 Total Visit Minutes 40 Visit Number 15 Number of COOLING TOWER TECHNICIAN Visits 0 PT-OP-B Current Condition Start: 04/25/18 16:04 Freq: Status: Active Protocol: Document 04/26/18 09:01 [facility] (Rec: 04/26/18 09:48 [facility] [id number]) Current Condition History of Current Condition Onset Date 02/10/18 Current Complaints R sided weakness History of Current Condition Pt reports she had a CVA on which resulted in weakness on R side and dec balance. Pt had HH until recently and they said she wouldn't need OT. Pt had a trip for the past month so she hasn't been doing any therapy . Pt reports some speech issues since the stroke. Pt is typically out and about with visiting with friends and playing games. 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 Pt reports no falls but reports she has had 2 times where she went down low to get something and had difficulty getting up . Pt lives alone in a large house. Pt reports she was bumping into the wall at first but isn't having that issue anymore. Pt reports occasional catching of R ankle that happened also prior to stroke. Pt reports she started driving just recently. Her kids set up a course for her to try to check her driving. Treatment Goals Patient/Caregiver Goals inc ease with getting up/down from ground; get the strength back in her body, be able to write and paint PT-OP-C Subjective Start: 04/25/18 16:04 Freq: Status: Active Protocol: Document 06/30/18 09:12 [facility] (Rec: 06/30/18 10:52 [facility] [id number]) OP-PT Subjective Patient Comments Patient Comments Pt felt good after last session Patient Reported Progress Improving PT-OP-D Balance Start: 04/25/18 16:04 Freq: Status: Active Protocol: Document 06/20/18 11:15 [facility] (Rec: 06/20/18 17:10 [facility] [email or web address]) Figueredo Balance Assessment Total Score Figueredo Impairment Rating 1 to 19% Impaired (Score 45-55 ) PT-OP-E Functional Tests Start: 04/26/18 09:48 Freq: Status: Active Protocol: Document 06/20/18 11:15 [facility] (Rec: 06/20/18 17:10 [facility] [email or web address]) Functional Tests Functional Gait Assessment Score 26/30 Functional Gait Assessment Impairment 1 to <20% Impaired (Score 25- Rating 29) PT-OP-G Mobility & Gait Start: 04/25/18 16:04 Freq: Status: Active Protocol: Document 06/20/18 11:15 [facility] (Rec: 06/20/18 17:10 [facility] [email or web address]) OP Mobility Evaluation Transfers Floor Transfers able to demonstrate safe transfer from standing to floor and from floor back to standing PT-OP-M Strength Start: 04/25/18 16:04 Freq: Status: Active Protocol: Document 06/20/18 11:15 [facility] (Rec: 06/20/18 17:10 [facility] [email or web address]) Hip Strength Hip Manual Muscle Testing Right Flexion (L2) 4 Good Extension (S1) 3+ Fair+ Abduction 3+ Fair+ External Rotation 3+ Fair+ Internal Rotation 4- Good- Left Flexion (L2) 4 Good Extension (S1) 3+ Fair+ Abduction 4- Good- External Rotation 4 Good Internal Rotation 4 Good PT-OP-Q Treatments Start: 04/25/18 16:04 Freq: Status: Active Protocol: Document 06/30/18 09:12 [facility] (Rec: 06/30/18 10:52 [facility] [id number]) Cardio Equipment Recumbent Elliptical (Biodex) Duration (Minutes) 6 Resistance 7 Seat Position 6 Gym Equipment Shuttle Balance red clips Details fwd: NBOS, WBOS (EO/EC) & staggered stance; Comments w/balloon, fwd wbos ec Therapeutic Exercises Standing Exercises lunges Standing Exercise Name walking Side bilateral Reps/Minutes 2x20ft fwd/back Standing Exercise Name resisted Side bilateral Equipment Used green band Reps/Minutes 20ftx2 sidestep Standing Exercise Name sidestep w/squat Side bilateral Resistance green Reps/Minutes 20ftx2 Neuro Re-Education Treatment Balance Activities bosu Details step ups then 4 sec balance Reps/Duration 10 B fwd/back EC Details walk fwd.back EC Reps/Duration 2x50ft PT-OP-T Assessment and Plan Start: 04/25/18 16:04 Freq: Status: Active Protocol: Document 06/30/18 09:12 [facility] (Rec: 06/30/18 10:52 [facility] [id number]) Physical Therapy Assessment Goals functional ability Short Term Goal (STG) GOAL MET strength Shelter Goal (LTG) GOOD PROGRESS balance Short Term Goal (STG) GOAL MET Shelter Goal (LTG) GOAL MET Assessment Summary Assessment Pt did better on balance board today and was able to be challanged by higher throws and faster toss today. She cont to fatigue with exercises , but does cont to be motivated to push herself to get stronger. Physical Therapy Plan Frequency and Duration Frequency of Treatment 2x/Week Duration of Treatment 1 month Plan of Care Start Date 06/20/18 Plan of Care End Date 07/21/18 Next Visit Focus/Plan Next Note Type Treatment Note Next Visit Plan Advance LE strength & balance
--- NOTE | 2018-07-05 11:10 | PT.OTN ---
Current Diagnoses Cerebral infarction, unspecified (07/05/18) Physical Therapy Treatment Note PT-OP-A Visit Information Start: 04/25/18 16:04 Freq: Status: Active Protocol: Document 07/05/18 10:25 [facility] (Rec: 07/05/18 11:10 [facility] [id number]) Out-Patient Physical Therapy Visit Information Visit Information Visit Type Treatment Note Visit Start Time 10:25 Visit Stop Time 11:05 Total Visit Minutes 40 Visit Number Number of CONTROL SYSTEMS DRAFTING OFFICER Visits 0 PT-OP-B Current Condition Start: 04/25/18 16:04 Freq: Status: Active Protocol: Document 04/26/18 09:01 [facility] (Rec: 04/26/18 09:48 [facility] [id number]) Current Condition History of Current Condition Onset Date 02/10/18 Current Complaints R sided weakness History of Current Condition Pt reports she had a CVA on which resulted in weakness on R side and dec balance. Pt had HH until recently and they said she wouldn't need OT. Pt had a trip for the past month so she hasn't been doing any therapy . Pt reports some speech issues since the stroke. Pt is typically out and about with visiting with friends and playing games. 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 Pt reports no falls but reports she has had 2 times where she went down low to get something and had difficulty getting up . Pt lives alone in a large house. Pt reports she was bumping into the wall at first but isn't having that issue anymore. Pt reports occasional catching of R ankle that happened also prior to stroke. Pt reports she started driving just recently. Her kids set up a course for her to try to check her driving. Treatment Goals Patient/Caregiver Goals inc ease with getting up/down from ground; get the strength back in her body, be able to write and paint PT-OP-C Subjective Start: 04/25/18 16:04 Freq: Status: Active Protocol: Document 07/05/18 10:25 [facility] (Rec: 07/05/18 11:10 [facility] [id number]) OP-PT Subjective Patient Comments Patient Comments Pt notes last night she had difficulty sleeping d/t quad pain that she has had since starting statins. SHe has told the MD before but maite to tell them again. Patient Reported Progress Improving PT-OP-D Balance Start: 04/25/18 16:04 Freq: Status: Active Protocol: Document 06/20/18 11:15 [facility] (Rec: 06/20/18 17:10 [facility] [email or web address]) Figueredo Balance Assessment Total Score Figueredo Impairment Rating 1 to 19% Impaired (Score 45-55 ) PT-OP-E Functional Tests Start: 04/26/18 09:48 Freq: Status: Active Protocol: Document 06/20/18 11:15 [facility] (Rec: 06/20/18 17:10 [facility] [email or web address]) Functional Tests Functional Gait Assessment Score 26/30 Functional Gait Assessment Impairment 1 to <20% Impaired (Score 25- Rating 29) PT-OP-G Mobility & Gait Start: 04/25/18 16:04 Freq: Status: Active Protocol: Document 06/20/18 11:15 [facility] (Rec: 06/20/18 17:10 [facility] [email or web address]) OP Mobility Evaluation Transfers Floor Transfers able to demonstrate safe transfer from standing to floor and from floor back to standing PT-OP-M Strength Start: 04/25/18 16:04 Freq: Status: Active Protocol: Document 06/20/18 11:15 [facility] (Rec: 06/20/18 17:10 [facility] [email or web address]) Hip Strength Hip Manual Muscle Testing Right Flexion (L2) 4 Good Extension (S1) 3+ Fair+ Abduction 3+ Fair+ External Rotation 3+ Fair+ Internal Rotation 4- Good- Left Flexion (L2) 4 Good Extension (S1) 3+ Fair+ Abduction 4- Good- External Rotation 4 Good Internal Rotation 4 Good PT-OP-Q Treatments Start: 04/25/18 16:04 Freq: Status: Active Protocol: Document 07/05/18 10:25 [facility] (Rec: 07/05/18 11:10 [facility] [id number]) Cardio Equipment Recumbent Elliptical (Biodex) Duration (Minutes) 6 Resistance 7 Seat Position 6 Gym Equipment Shuttle Balance red clips Details fwd: NBOS, WBOS (EO/EC) & staggered stance; Comments w/balloon, fwd wbos ec Therapeutic Exercises Standing Exercises lunges Standing Exercise Name walking Side bilateral Reps/Minutes 4x20ft fwd/back Standing Exercise Name resisted Side bilateral Equipment Used green band Reps/Minutes 20ftx2 sidestep Standing Exercise Name sidestep w/squat Side bilateral Resistance green Reps/Minutes 20ftx2 Neuro Re-Education Treatment Balance Activities bosu Details step ups then 4 sec balance Reps/Duration 10 B SLS Details on blue tpad tandem walking Details tandem walking Reps/Duration 2x20ft Comments CGA backwards walk Details along line Reps/Duration 2x20ft PT-OP-T Assessment and Plan Start: 04/25/18 16:04 Freq: Status: Active Protocol: Document 07/05/18 10:25 [facility] (Rec: 07/05/18 11:10 [facility] [id number]) Physical Therapy Assessment Goals functional ability Short Term Goal (STG) GOAL MET strength Automotive Parts Specialist Goal (LTG) GOOD PROGRESS balance Short Term Goal (STG) GOAL MET Care Home Goal (LTG) GOAL MET Assessment Summary Assessment Pt cont to improve with uneven surfaces. Backwards on line was challanging to her today. Cont compliance with HEP Physical Therapy Plan Frequency and Duration Frequency of Treatment 2x/Week Duration of Treatment 1 month Plan of Care Start Date 06/20/18 Plan of Care End Date 07/21/18 Next Visit Focus/Plan Next Note Type Treatment Note Next Visit Plan Advance LE strength & balance towards HEP until end of POC
--- NOTE | 2018-07-07 14:29 | PT.OTN ---
Current Diagnoses Cerebral infarction, unspecified (07/07/18) Physical Therapy Treatment Note PT-OP-A Visit Information Start: 04/25/18 16:04 Freq: Status: Active Protocol: Document 07/07/18 13:52 [facility] (Rec: 07/07/18 14:29 [facility] [id number]) Out-Patient Physical Therapy Visit Information Visit Information Visit Type Treatment Note Visit Start Time 13:45 Visit Stop Time 14:25 Total Visit Minutes 40 Visit Number 17/20 Number of APPLICATION SUPPORT LEAD Visits 0 PT-OP-B Current Condition Start: 04/25/18 16:04 Freq: Status: Active Protocol: Document 04/26/18 09:01 [facility] (Rec: 04/26/18 09:48 [facility] [id number]) Current Condition History of Current Condition Onset Date 02/10/18 Current Complaints R sided weakness History of Current Condition Pt reports she had a CVA on which resulted in weakness on R side and dec balance. Pt had HH until recently and they said she wouldn't need OT. Pt had a trip for the past month so she hasn't been doing any therapy . Pt reports some speech issues since the stroke. Pt is typically out and about with visiting with friends and playing games. 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 Pt reports no falls but reports she has had 2 times where she went down low to get something and had difficulty getting up . Pt lives alone in a large house. Pt reports she was bumping into the wall at first but isn't having that issue anymore. Pt reports occasional catching of R ankle that happened also prior to stroke. Pt reports she started driving just recently. Her kids set up a course for her to try to check her driving. Treatment Goals Patient/Caregiver Goals inc ease with getting up/down from ground; get the strength back in her body, be able to write and paint PT-OP-C Subjective Start: 04/25/18 16:04 Freq: Status: Active Protocol: Document 07/07/18 13:52 [facility] (Rec: 07/07/18 14:29 [facility] [id number]) OP-PT Subjective Patient Comments Patient Comments Compliance with HEP PT-OP-D Balance Start: 04/25/18 16:04 Freq: Status: Active Protocol: Document 06/20/18 11:15 [facility] (Rec: 06/20/18 17:10 [facility] [email or web address]) Figueredo Balance Assessment Total Score Figueredo Impairment Rating 1 to 19% Impaired (Score 45-55 ) PT-OP-E Functional Tests Start: 04/26/18 09:48 Freq: Status: Active Protocol: Document 06/20/18 11:15 [facility] (Rec: 06/20/18 17:10 [facility] [email or web address]) Functional Tests Functional Gait Assessment Score 26/30 Functional Gait Assessment Impairment 1 to <20% Impaired (Score 25- Rating 29) PT-OP-G Mobility & Gait Start: 04/25/18 16:04 Freq: Status: Active Protocol: Document 06/20/18 11:15 [facility] (Rec: 06/20/18 17:10 [facility] [email or web address]) OP Mobility Evaluation Transfers Floor Transfers able to demonstrate safe transfer from standing to floor and from floor back to standing PT-OP-M Strength Start: 04/25/18 16:04 Freq: Status: Active Protocol: Document 06/20/18 11:15 [facility] (Rec: 06/20/18 17:10 [facility] [email or web address]) Hip Strength Hip Manual Muscle Testing Right Flexion (L2) 4 Good Extension (S1) 3+ Fair+ Abduction 3+ Fair+ External Rotation 3+ Fair+ Internal Rotation 4- Good- Left Flexion (L2) 4 Good Extension (S1) 3+ Fair+ Abduction 4- Good- External Rotation 4 Good Internal Rotation 4 Good PT-OP-Q Treatments Start: 04/25/18 16:04 Freq: Status: Active Protocol: Document 07/07/18 13:52 [facility] (Rec: 07/07/18 14:29 [facility] [id number]) Cardio Equipment Recumbent Elliptical (Biodex) Duration (Minutes) 6 Resistance 7 Seat Position 6 Gym Equipment Shuttle Balance red clips Details fwd: NBOS, WBOS (EO/EC) & staggered stance; Comments w/balloon Therapeutic Exercises Standing Exercises lunges Standing Exercise Name walking Side bilateral Reps/Minutes 4x20ft fwd/back Standing Exercise Name resisted Side bilateral Equipment Used green band Reps/Minutes 20ftx2 sidestep Standing Exercise Name sidestep w/squat Side bilateral Resistance green Reps/Minutes 20ftx2 Neuro Re-Education Treatment Balance Activities bosu Details step ups then 4 sec balance Reps/Duration 10 B hurdles Details onto tpads & dynadiscs Reps/Duration 8 laps fwd/back EC Details june fwd/walk back EC Reps/Duration 2x50ft PT-OP-T Assessment and Plan Start: 04/25/18 16:04 Freq: Status: Active Protocol: Document 07/07/18 13:52 [facility] (Rec: 07/07/18 14:29 [facility] [id number]) Physical Therapy Assessment Goals functional ability Short Term Goal (STG) GOAL MET strength Pipe Straightener Goal (LTG) GOOD PROGRESS balance Short Term Goal (STG) GOAL MET Pipe Straightener Goal (LTG) GOAL MET Assessment Summary Assessment Pt did very well with EC activity today. she had less difficulty with maintaining straight line. Less UE support with bosu & balance board. Physical Therapy Plan Frequency and Duration Frequency of Treatment 2x/Week Duration of Treatment 1 month Plan of Care Start Date 06/20/18 Plan of Care End Date 07/21/18 Next Visit Focus/Plan Next Note Type Treatment Note Next Visit Plan Advance LE strength & balance towards HEP until end of POC
--- NOTE | 2018-07-11 12:15 | PT.OTN ---
Current Diagnoses Cerebral infarction, unspecified (07/11/18) Physical Therapy Treatment Note PT-OP-A Visit Information Start: 04/25/18 16:04 Freq: Status: Active Protocol: Document 07/11/18 12:08 (Rec: 07/11/18 12:15 [email or web address]) Out-Patient Physical Therapy Visit Information Visit Information Visit Type Treatment Note Visit Start Time 10:15 Visit Stop Time 11:00 Total Visit Minutes 45 Visit Number Number of SPOT WELDER BODY ASSEMBLY Visits 1 PT-OP-B Current Condition Start: 04/25/18 16:04 Freq: Status: Active Protocol: Document 04/26/18 09:01 [facility] (Rec: 04/26/18 09:48 [facility] [id number]) Current Condition History of Current Condition Onset Date 02/10/18 Current Complaints R sided weakness History of Current Condition Pt reports she had a CVA on which resulted in weakness on R side and dec balance. Pt had HH until recently and they said she wouldn't need OT. Pt had a trip for the past month so she hasn't been doing any therapy . Pt reports some speech issues since the stroke. Pt is typically out and about with visiting with friends and playing games. 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 Pt reports no falls but reports she has had 2 times where she went down low to get something and had difficulty getting up . Pt lives alone in a large house. Pt reports she was bumping into the wall at first but isn't having that issue anymore. Pt reports occasional catching of R ankle that happened also prior to stroke. Pt reports she started driving just recently. Her kids set up a course for her to try to check her driving. Treatment Goals Patient/Caregiver Goals inc ease with getting up/down from ground; get the strength back in her body, be able to write and paint PT-OP-C Subjective Start: 04/25/18 16:04 Freq: Status: Active Protocol: Document 07/11/18 12:08 (Rec: 07/11/18 12:15 [email or web address]) OP-PT Subjective Patient Comments Patient Comments Pt plans to participate in senior exercise class this Tuesday, will report back on tolerance. PT-OP-D Balance Start: 04/25/18 16:04 Freq: Status: Active Protocol: Document 06/20/18 11:15 [facility] (Rec: 06/20/18 17:10 [facility] [email or web address]) Figuereod Balance Assessment Total Score Figueredo Impairment Rating 1 to 19% Impaired (Score 45-55 ) PT-OP-E Functional Tests Start: 04/26/18 09:48 Freq: Status: Active Protocol: Document 06/20/18 11:15 [facility] (Rec: 06/20/18 17:10 [facility] [email or web address]) Functional Tests Functional Gait Assessment Score 26/30 Functional Gait Assessment Impairment 1 to <20% Impaired (Score 25- Rating 29) PT-OP-G Mobility & Gait Start: 04/25/18 16:04 Freq: Status: Active Protocol: Document 06/20/18 11:15 [facility] (Rec: 06/20/18 17:10 [facility] [email or web address]) OP Mobility Evaluation Transfers Floor Transfers able to demonstrate safe transfer from standing to floor and from floor back to standing PT-OP-M Strength Start: 04/25/18 16:04 Freq: Status: Active Protocol: Document 06/20/18 11:15 [facility] (Rec: 06/20/18 17:10 [facility] [email or web address]) Hip Strength Hip Manual Muscle Testing Right Flexion (L2) 4 Good Extension (S1) 3+ Fair+ Abduction 3+ Fair+ External Rotation 3+ Fair+ Internal Rotation 4- Good- Left Flexion (L2) 4 Good Extension (S1) 3+ Fair+ Abduction 4- Good- External Rotation 4 Good Internal Rotation 4 Good PT-OP-Q Treatments Start: 04/25/18 16:04 Freq: Status: Active Protocol: Document 07/11/18 12:08 [facility] (Rec: 07/11/18 12:15 [facility] [email or web address]) Cardio Equipment Recumbent Elliptical (Biodex) Duration (Minutes) 6 Resistance 7 Seat Position 6 Gym Equipment Shuttle Balance red clips Details fwd: NBOS, WBOS (EO/EC) & staggered stance; Comments balloon, head turns,UE movements Therapeutic Exercises Standing Exercises lunges Standing Exercise Name walking Side bilateral Reps/Minutes 4x20ft sit<>stand Side bilateral Equipment Used chair Reps/Minutes 10x Comments limited UE use fwd/back Standing Exercise Name resisted Side bilateral Equipment Used green band Reps/Minutes 20ftx2 sidestep Standing Exercise Name sidestep w/squat Side bilateral Resistance green Reps/Minutes 20ftx2 Neuro Re-Education Treatment Balance Activities bosu Details step ups then 4 sec balance Reps/Duration 10 B SLS Details on blue tpad Reps/Duration 15 x 2 hurdles Details onto tpads & dynadiscs Reps/Duration 8 laps tandem walking Details tandem walking Reps/Duration 2x20ft Comments CGA backwards walk Details along line Reps/Duration 2x20ft fwd/back EC Details june fwd/walk back EC Reps/Duration 2x50ft PT-OP-T Assessment and Plan Start: 04/25/18 16:04 Freq: Status: Active Protocol: Document 07/11/18 12:08 [facility] (Rec: 07/11/18 12:15 [facility] [email or web address]) Physical Therapy Assessment Assessment Summary Assessment Pt progressing well with dynamic balance activity, decreasing UE support. Physical Therapy Plan Next Visit Focus/Plan Next Note Type Treatment Note Next Visit Plan Advance LE strength & balance towards HEP until end of POC
--- NOTE | 2018-07-19 14:33 | PT.OTN ---
Current Diagnoses Cerebral infarction, unspecified (07/19/18) Physical Therapy Treatment Note PT-OP-A Visit Information Start: 04/25/18 16:04 Freq: Status: Active Protocol: Document 07/19/18 13:04 [facility] (Rec: 07/19/18 14:33 [facility] [id number]) Out-Patient Physical Therapy Visit Information Visit Information Visit Type Treatment Note Visit Start Time 13:00 Visit Stop Time 13:40 Total Visit Minutes 40 Visit Number Number of ASSIGNER Visits 0 PT-OP-B Current Condition Start: 04/25/18 16:04 Freq: Status: Active Protocol: Document 04/26/18 09:01 [facility] (Rec: 04/26/18 09:48 [facility] [id number]) Current Condition History of Current Condition Onset Date 02/10/18 Current Complaints R sided weakness History of Current Condition Pt reports she had a CVA on which resulted in weakness on R side and dec balance. Pt had HH until recently and they said she wouldn't need OT. Pt had a trip for the past month so she hasn't been doing any therapy . Pt reports some speech issues since the stroke. Pt is typically out and about with visiting with friends and playing games. 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 Pt reports no falls but reports she has had 2 times where she went down low to get something and had difficulty getting up . Pt lives alone in a large house. Pt reports she was bumping into the wall at first but isn't having that issue anymore. Pt reports occasional catching of R ankle that happened also prior to stroke. Pt reports she started driving just recently. Her kids set up a course for her to try to check her driving. Treatment Goals Patient/Caregiver Goals inc ease with getting up/down from ground; get the strength back in her body, be able to write and paint PT-OP-C Subjective Start: 04/25/18 16:04 Freq: Status: Active Protocol: Document 07/19/18 13:04 [facility] (Rec: 07/19/18 14:33 [facility] [id number]) OP-PT Subjective Patient Comments Patient Comments Pt reports she plans to start next week with strength and balance class. COmpliance with HEP. PT-OP-D Balance Start: 04/25/18 16:04 Freq: Status: Active Protocol: Document 06/20/18 11:15 [facility] (Rec: 06/20/18 17:10 [facility] [email or web address]) Figueredo Balance Assessment Total Score Figueredo Impairment Rating 1 to 19% Impaired (Score 45-55 ) PT-OP-E Functional Tests Start: 04/26/18 09:48 Freq: Status: Active Protocol: Document 06/20/18 11:15 [facility] (Rec: 06/20/18 17:10 [facility] [email or web address]) Functional Tests Functional Gait Assessment Score 26/30 Functional Gait Assessment Impairment 1 to <20% Impaired (Score 25- Rating 29) PT-OP-G Mobility & Gait Start: 04/25/18 16:04 Freq: Status: Active Protocol: Document 06/20/18 11:15 [facility] (Rec: 06/20/18 17:10 [facility] [email or web address]) OP Mobility Evaluation Transfers Floor Transfers able to demonstrate safe transfer from standing to floor and from floor back to standing PT-OP-M Strength Start: 04/25/18 16:04 Freq: Status: Active Protocol: Document 06/20/18 11:15 [facility] (Rec: 06/20/18 17:10 [facility] [email or web address]) Hip Strength Hip Manual Muscle Testing Right Flexion (L2) 4 Good Extension (S1) 3+ Fair+ Abduction 3+ Fair+ External Rotation 3+ Fair+ Internal Rotation 4- Good- Left Flexion (L2) 4 Good Extension (S1) 3+ Fair+ Abduction 4- Good- External Rotation 4 Good Internal Rotation 4 Good PT-OP-Q Treatments Start: 04/25/18 16:04 Freq: Status: Active Protocol: Document 07/19/18 13:04 [facility] (Rec: 07/19/18 14:33 [facility] [id number]) Cardio Equipment Recumbent Elliptical (Biodex) Duration (Minutes) 6 Resistance 7 Seat Position 6 Gym Equipment Shuttle Balance red clips Details fwd: NBOS, WBOS (EO/EC) & staggered stance; Comments balloon, head turns,UE movements Therapeutic Exercises Standing Exercises grapevine Standing Exercise Name grapevine & grapevine w/ exaggerated march Reps/Minutes 20ft each way each lunges Standing Exercise Name walking Side bilateral Reps/Minutes 4x20ft fwd/back Standing Exercise Name resisted Side bilateral Equipment Used green band Reps/Minutes 20ftx2 sidestep Standing Exercise Name sidestep w/squat Side bilateral Resistance green Reps/Minutes 20ftx2 Neuro Re-Education Treatment Balance Activities bosu Details step ups then 4 sec balance Reps/Duration 10 B PT-OP-T Assessment and Plan Start: 04/25/18 16:04 Freq: Status: Active Protocol: Document 07/19/18 13:04 [facility] (Rec: 07/19/18 14:33 [facility] [id number]) Physical Therapy Assessment Goals strength Long-Term Goal (LTG) GOOD PROGRESS Assessment Summary Assessment Pt cont to do well with progression of gait and balance. Physical Therapy Plan Frequency and Duration Frequency of Treatment 2x/Week Duration of Treatment 1 month Plan of Care Start Date 06/20/18 Plan of Care End Date 07/21/18 Next Visit Focus/Plan Next Note Type Discharge Summary Next Visit Plan retest strength & review HEP as needed
--- NOTE | 2018-07-21 15:24 | PT.OTN ---
Current Diagnoses Cerebral infarction, unspecified (07/21/18) Physical Therapy Treatment Note PT-OP-A Visit Information Start: 04/25/18 16:04 Freq: Status: Active Protocol: Document 07/21/18 15:13 (Rec: 07/21/18 15:23 [email or web address]) Out-Patient Physical Therapy Visit Information Visit Information Visit Type Discharge Summary Visit Start Time 13:45 Visit Stop Time 14:20 Total Visit Minutes 40 Visit Number Number of HEAD WAITER/WAITRESS BANQUET Visits 1 PT-OP-B Current Condition Start: 04/25/18 16:04 Freq: Status: Active Protocol: Document 04/26/18 09:01 [facility] (Rec: 04/26/18 09:48 [facility] [id number]) Current Condition History of Current Condition Onset Date 02/10/18 Current Complaints R sided weakness History of Current Condition Pt reports she had a CVA on which resulted in weakness on R side and dec balance. Pt had HH until recently and they said she wouldn't need OT. Pt had a trip for the past month so she hasn't been doing any therapy . Pt reports some speech issues since the stroke. Pt is typically out and about with visiting with friends and playing games. 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 Pt reports no falls but reports she has had 2 times where she went down low to get something and had difficulty getting up . Pt lives alone in a large house. Pt reports she was bumping into the wall at first but isn't having that issue anymore. Pt reports occasional catching of R ankle that happened also prior to stroke. Pt reports she started driving just recently. Her kids set up a course for her to try to check her driving. Treatment Goals Patient/Caregiver Goals inc ease with getting up/down from ground; get the strength back in her body, be able to write and paint PT-OP-C Subjective Start: 04/25/18 16:04 Freq: Status: Active Protocol: Document 07/21/18 15:13 (Rec: 07/21/18 15:23 [email or web address]) OP-PT Subjective Patient Comments Patient Comments Pt feels good about d/c from PT today. Plans to continue with HEP and do exercise classes 3x/wk. PT-OP-D Balance Start: 04/25/18 16:04 Freq: Status: Active Protocol: Document 06/20/18 11:15 [facility] (Rec: 06/20/18 17:10 [facility] [email or web address]) Figueredo Balance Assessment Total Score Figueredo Impairment Rating 1 to 19% Impaired (Score 45-55 ) PT-OP-E Functional Tests Start: 04/26/18 09:48 Freq: Status: Active Protocol: Document 06/20/18 11:15 [facility] (Rec: 06/20/18 17:10 [facility] [email or web address]) Functional Tests Functional Gait Assessment Score 26/30 Functional Gait Assessment Impairment 1 to <20% Impaired (Score 25- Rating 29) PT-OP-G Mobility & Gait Start: 04/25/18 16:04 Freq: Status: Active Protocol: Document 06/20/18 11:15 [facility] (Rec: 06/20/18 17:10 [facility] [email or web address]) OP Mobility Evaluation Transfers Floor Transfers able to demonstrate safe transfer from standing to floor and from floor back to standing PT-OP-M Strength Start: 04/25/18 16:04 Freq: Status: Active Protocol: Document 06/20/18 11:15 [facility] (Rec: 06/20/18 17:10 [facility] [email or web address]) Hip Strength Hip Manual Muscle Testing Right Flexion (L2) 4 Good Extension (S1) 3+ Fair+ Abduction 3+ Fair+ External Rotation 3+ Fair+ Internal Rotation 4- Good- Left Flexion (L2) 4 Good Extension (S1) 3+ Fair+ Abduction 4- Good- External Rotation 4 Good Internal Rotation 4 Good PT-OP-Q Treatments Start: 04/25/18 16:04 Freq: Status: Active Protocol: Document 07/21/18 15:13 [facility] (Rec: 07/21/18 15:23 [facility] [email or web address]) Cardio Equipment Recumbent Elliptical (Biodex) Duration (Minutes) 6 Resistance 7 Seat Position 6 Gym Equipment Shuttle Balance red clips Details fwd: NBOS, WBOS (EO/EC) & staggered stance; Comments balloon, head turns,UE movements Therapeutic Exercises Standing Exercises lunges Standing Exercise Name walking Side bilateral Reps/Minutes 4x20ft sit<>stand Side bilateral Equipment Used chair Reps/Minutes 10x Comments limited UE use fwd/back Standing Exercise Name resisted Side bilateral Equipment Used green band sidestep Standing Exercise Name sidestep w/squat Side bilateral Resistance green Reps/Minutes 20ftx2 Neuro Re-Education Treatment Balance Activities SLS Details on blue tpad Reps/Duration 15 x 2 tandem walking Details tandem walking Reps/Duration 2x20ft Comments CGA fwd/back EC Details june fwd/walk back EC Reps/Duration 2x50ft PT-OP-T Assessment and Plan Start: 04/25/18 16:04 Freq: Status: Active Protocol: Document 07/21/18 15:13 [facility] (Rec: 07/21/18 15:23 [facility] [email or web address]) Physical Therapy Assessment Progress Towards Goals Progress Towards Goals Goals Met Progress Comments Review of HEP with visual handout provided. LE strength progressed with R hip FLEX 4, EXT 3+, ABD 4, IR 4- and ER 4- . R knee Flex/Ext both 4+ and R ankle DF/PF both at 4. Assessment Summary Assessment Pt with continued progress in strength gains, dynamic balance and gait. Will continue with HEP and exercise classes outside of clinic. Physical Therapy Plan Discharge Physical Therapy Discharge Reasons Goals Met
--- NOTE | 2018-11-30 07:53 | PT.OPDS ---
Current Diagnoses Cerebral infarction, unspecified (07/21/18) Provider Visit Care Team Role Provider Type Vanna Ceballos PA-C Attending Provider Advanced Sound Tester Primary Care Provider Specialty: Internal Medicine Address: [address] [place] [address], [facility] Email: [email or web address] Visit Number Visit Number Discharge Summary PT-OP-B Current Condition Start: 04/25/18 16:04 Freq: Status: Active Protocol: Document 04/26/18 09:01 [facility] (Rec: 04/26/18 09:48 [facility] [id number]) Current Condition History of Current Condition Onset Date 02/10/18 Current Complaints R sided weakness History of Current Condition Pt reports she had a CVA on which resulted in weakness on R side and dec balance. Pt had HH until recently and they said she wouldn't need OT. Pt had a trip for the past month so she hasn't been doing any therapy . Pt reports some speech issues since the stroke. Pt is typically out and about with visiting with friends and playing games. 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 Pt reports no falls but reports she has had 2 times where she went down low to get something and had difficulty getting up . Pt lives alone in a large house. Pt reports she was bumping into the wall at first but isn't having that issue anymore. Pt reports occasional catching of R ankle that happened also prior to stroke. Pt reports she started driving just recently. Her kids set up a course for her to try to check her driving. Treatment Goals Patient/Caregiver Goals inc ease with getting up/down from ground; get the strength back in her body, be able to write and paint PT-OP-C Subjective Start: 04/25/18 16:04 Freq: Status: Active Protocol: Document 07/21/18 15:13 [facility] (Rec: 07/21/18 15:23 [facility] [email or web address]) OP-PT Subjective Patient Comments Patient Comments Pt feels good about d/c from PT today. Plans to continue with HEP and do exercise classes 3x/wk. PT-OP-D Balance Start: 04/25/18 16:04 Freq: Status: Active Protocol: Document 06/20/18 11:15 [facility] (Rec: 06/20/18 17:10 [facility] [email or web address]) Figueredo Balance Assessment Total Score Figueredo Impairment Rating 1 to 19% Impaired (Score 45-55 ) PT-OP-E Functional Tests Start: 04/26/18 09:48 Freq: Status: Active Protocol: Document 06/20/18 11:15 [facility] (Rec: 06/20/18 17:10 [facility] [email or web address]) Functional Tests Functional Gait Assessment Score 26/30 Functional Gait Assessment Impairment 1 to <20% Impaired (Score 25- Rating 29) PT-OP-G Mobility & Gait Start: 04/25/18 16:04 Freq: Status: Active Protocol: Document 06/20/18 11:15 [facility] (Rec: 06/20/18 17:10 [facility] [email or web address]) OP Mobility Evaluation Transfers Floor Transfers able to demonstrate safe transfer from standing to floor and from floor back to standing PT-OP-M Strength Start: 04/25/18 16:04 Freq: Status: Active Protocol: Document 06/20/18 11:15 [facility] (Rec: 06/20/18 17:10 [facility] [email or web address]) Hip Strength Hip Manual Muscle Testing Right Flexion (L2) 4 Good Extension (S1) 3+ Fair+ Abduction 3+ Fair+ External Rotation 3+ Fair+ Internal Rotation 4- Good- Left Flexion (L2) 4 Good Extension (S1) 3+ Fair+ Abduction 4- Good- External Rotation 4 Good Internal Rotation 4 Good PT-OP-T Assessment and Plan Start: 04/25/18 16:04 Freq: Status: Active Protocol: Document 07/21/18 15:13 [facility] (Rec: 07/21/18 15:23 [facility] [email or web address]) Physical Therapy Assessment Progress Towards Goals Progress Towards Goals Goals Met Progress Comments Review of HEP with visual handout provided. LE strength pregressed with R hip FLEX 4, EXT 3+, ABD 4, IR 4- and ER 4- . R knee Flex/Ext both 4+ and R ankle DF/PF both at 4. Assessment Summary Assessment Pt with continued progress in strength gains, dynamic balance and gait. Will continue with HEP and exercise classes outside of clinic. Physical Therapy Plan Discharge Physical Therapy Discharge Reasons Goals Met
== END 2018-12-01 09:24 | disposition home or self-care (01) ==
LOC: PHYS 13:45
PROVIDERS: PCP Physician Assistant; Visit Provider Physician Assistant
DX: I63.9 Cerebral infarction, unspecified (principal)
CPT/HCPCS: 97110; 97112; 97161; 97164

== ENCOUNTER 2018-11-13 16:01 | Outpatient (RCR) | payer MEDICARE, BC, SELFPAY ==
[2018-02-11 15:10] VITALS: BMI 24.5
--- NOTE | 2018-11-13 18:02 | ST.OPIE ---
Provider Information Visit Care Team Role Provider Type Vanna Ceballos PA-C Primary Care Provider Advanced Broadcast Traffic Coordinator Specialty: Internal Medicine Address: [address] [place] [address], [id number] Email: Torres Rivas MD Attending Provider Physician Specialty: Cardiology Address: [address] [place] [address], [address] Email: Speech-Language Pathology Initial Evaluation OCEAN FISHING GUIDE Motor Speech Evaluation Start: 11/13/18 16:33 Freq: Status: Active Protocol: Document 11/13/18 17:20 [facility] (Rec: 11/13/18 18:00 [facility] [email or web address]) Motor Speech Evaluation Session Time Visit Start Time 16:30 Visit Stop Time 17:10 Total Visit Minutes 40 Visit Information Visit Number 1 Plan of Care Dates 11/13/18-01/13/19 Insurance Information Medicare/[employer] Federal Setting Setting Outpatient Care Patient History Source: [place] ([place]). Patient History Susi Champion was seen for a speech evaluation at the referral of her silver recovery operator, Dr. Montgomery. In February 2018, susi suffered an acute CVA involving the left parietal lobe and basal ganglia. She lives at home alone and is independent in all ADLS. During her hospital stay at [facility] last fall, Susi had a speech and language evaluation. The results of that evaluation indicated mild dysarthria effecting articulatory precision. Her speech at that time was judged to be ~90% intelligible. She had a mild right side facial droop. She presented no s/sx of aphasia, but reported mild word finding difficulty, which was determined to be likely due to a mild cognitive deficit as determined by assessment with [facility]. Susi also reported that last fall, before her CVA, she had all of her teeth extracted with upper and lower dentures were placed at that time. Referral Referring Physician Dr Montgomery and PCP: Vanna Ceballos MD Reason for Referral Speech Mental Status Mental Status Alert Responsive Cooperative Subjective Observations Subjective Susi presented as a delightful patient. Oral Motor Lips Function WFL Observation at rest WFL Pucker WFL - Good strength with puffed cheeks Retraction WFL - symmetrical movement Alternating pucker/retraction WFL - symmetrical movement Involuntary Movement NONE OBSERVED Tongue Function WFL Protrusion WFL - no deviation Retraction WFL - no deviation Lateralization mild coordination of reapid lateralization Jaw Function WFL Observations at rest WFL Opening WFL - good strength to resistance Closing WFL - good strength to resistance Involuntary movement none observed Soft Palate Function WFL Symmetry WFL Elevation WFL Sustained Elevation WFL Involuntary Movement none observed Respiration/Phonation Phonation Quality WFL Loudness WFL Conversation Quality WFL Diadochokinetic Rates P^ Quality WFL T^ Quality WFL K^ Quality WFL P^T^K^ Quality Mild Impairment Comments mild lack of coordination for mutisyllabic syllables/words Speech Intelligibility Awareness/Strategy Use Findings Details Motor Speech Function Mild Impairment Type of Impairment mild dysarthria. Speech intelligibility judged to be 95-100% Assessment Details Assessment Susi Champion was seen for a speech assessment secondary to a referral from Dr. Montgomery, her silver recovery operator. She presented with a mild dysarthria due to her CVA last February 2018. Since her CVA, Susi reported that many of her initial symptoms have resolved: she no longer bites her tongue, her facial droop has resolved and her speech has improved. Complicating her dysarthria, Susi had been fitted for upper and lower dentures just prior to her CVA. She had all of her teeth extracted and the dentures immediately placed in her mouth. Since her initial dental appointment , Susi has not returned to the dentist for continued work /adjustments. Currently she relies on adhesive to keep her dentures in place. She feels that her dentures impact her speech clarity. In reviewing the overall assessment results and given Susi's report of her dental work and her overall recovery, it appears that Amas articulatory precision is effected by both the residual effects of her CVA as well as her dentures/oral structures. her speech is very intelligible with a slightly slushy /s/. Her speech rate is slowed, which is expected for both dysarthria and upper/ lower dentures. Susi noted that her speech has improved. It is expected that it will continue to improve. Additional adjustments by hr dentist will also positively effect her speech clarity. No speech therapy is indicated at this time. It was recommended to Susi that she continue to work with he dentist to adjust and fine- tune her dentures and their fit. If after that, if she needs to address her speech intelligibility, she should contact her PCP for a referral to this clinic. Susi was in agreement with the recommendations and was appreciative. Recommendations Treatment Recommended No Referrals Other Dentist Patient/Family Education Education Patient Understanding
--- NOTE | 2018-11-13 18:06 | ST.OPPOC ---
Care Team Visit Care Team Role Provider Type Vanna Ceballos PA-C Primary Care Provider Advanced Adult Basic Education Instructor Address: [address], [place], [address] Torres Rivas MD Attending Provider Physician Address: [address] [facility] [address], [place], [address] Speech Pathology Plan of Care Plan of Care Dates 11/13/18-01/13/19 [facility]sp Goals To be determined by treating ASTROPHYSICS TEACHER at [facility]. Additional Recommended Dentist Referrals Please Sign and Return: I have reviewed this Plan of Care and certify that the skilled therapy services above are required to meet the patient?s needs. Physician Signature Date Printed Name and Credentials Clinical Instructor Signature Printed Name and Credentials
== END 2018-11-15 09:40 | disposition home or self-care (01) ==
LOC: SP 16:01
PROVIDERS: PCP Physician Assistant; Visit Provider Internal Medicine Cardiovascular Disease
DX: R47.1 Dysarthria and anarthria (principal); Z86.73 Personal history of transient ischemic attack (TIA), and cerebral infarction without residual deficits
CPT/HCPCS: 92522

== ENCOUNTER → 2018-12-07 09:34 | Outpatient (CLI) | payer MEDICARE, BC, SELFPAY ==
[2018-02-11 15:10] VITALS: BMI 24.5
--- NOTE | 2018-12-07 | DI.MG.S_ITS ---
BILATERAL DIGITAL SCREENING MAMMOGRAM 3D/2D WITH CAD: 12/07/2018 CLINICAL: Routine screening. Personal history of right breast cancer. Family history of breast cancer. Comparison is made to exams dated: 11/25/2016 mammogram, 09/18/2013 mammogram, and 06/28/2012 mammogram - [facility]. There are scattered fibroglandular elements in both breasts. Current study was also evaluated with a Computer Aided Detection (CAD) system. There are benign post operative findings in the right breast. There are mole markers on the left breast. No significant masses, calcifications, or other findings are seen in either breast. There has been no significant interval change. IMPRESSION: There is no mammographic evidence of malignancy. A 1 year screening mammogram is recommended. This exam was interpreted at Station ID: [id number]. NOTE: For mammograms, a report in lay terms will be sent to the patient. Approximately 15% of breast malignancies will not be visualized mammographically. In the management of a palpable breast mass, a negative mammogram must not discourage biopsy of a clinically suspicious lesion. Electronically Signed By: Quentin chan/liban:12/08/2018 17:45:05 letter sent: Normal Exam ACR BI-RADS Category 2: Benign Finding(s) [id number]
== END ==
PROVIDERS: PCP Physician Assistant; Visit Provider Physician Assistant
DX: Z12.31 Encounter for screening mammogram for malignant neoplasm of breast (principal)
CPT/HCPCS: 77063; 77067

== ENCOUNTER → 2019-01-03 09:20 | Outpatient (CLI) | payer MEDICARE, BC, SELFPAY ==
[2018-02-11 15:10] VITALS: BMI 24.5
[2019-01-03 10:42] LABS: Cholesterol 187 mg/dL (140-199); HDL Cholesterol 76 mg/dL (40-60); LDL Cholesterol Calculated 94 mg/dL (<100); Triglycerides 87 mg/dL (35-150)
== END ==
PROVIDERS: PCP Physician Assistant; Visit Provider Internal Medicine Cardiovascular Disease
DX: E78.5 Hyperlipidemia, unspecified (principal)
CPT/HCPCS: 36415; 80061